=== PATIENT | male | born 1940 | race African-American/Black ===

== ENCOUNTER 2017-08-12 03:15 | Inpatient (IN) | payer OTHER ==
[2017-08-12] MEDS ORDERED: ACETAMINOPHEN INJECTION 100 ML IVPB ONE (03:30)
[2017-08-12 03:34] VITALS: BMI 19.0
[2017-08-12 03:46] LABS: VENOUS PC02 40.4 mmHg (38-52); VENOUS PH 7.42 (7.32-7.42); VENOUS PO2 43.4 mmHg (28-48)
[2017-08-12 03:48] LABS: BASO % 0.3 % (0-2.0); HEMATOCRIT 26.2 % (35.4-49); LYMPH % 21.2 % (8-40); MCH 25.7 pg (25.7-33.7); MCHC 30.5 g/dl (32.0-35.9); MEAN CELL VOLUME 84.1 fl (80-96); MEAN PLT VOLUME 9.6 fl (7.5-11.1); MONO % 8.1 % (3.8-10.2); NEUT % 70.4 % (42.8-82.8); PLATELET COUNT 321 K/MM3 (134-434); RBC 3.11 M/mm3 (4.00-5.60); RDW 19.1 % (11.9-15.9); WHITE BLOOD COUNT 12.4 K/mm3 (4.0-10.0)
[2017-08-12] MEDS ORDERED: SODIUM CHLORIDE 1,000 ML IV STA ×3 (03:51→05:52)
[2017-08-12] MEDS ORDERED: ACETAMINOPHEN 1000 MG/100 ML VIAL (NON FORMULARY) IVPB ONE (03:52)
[2017-08-12 03:53] LABS: URINE APPEARANCE SLCLOUDY; URINE BILIRUBIN NEGATIVE (NEGATIVE); URINE BLOOD NEGATIVE (NEGATIVE); URINE GLUCOSE (UA) NEGATIVE (NEGATIVE); URINE KETONE NEGATIVE (NEGATIVE); URINE LEUK ESTERASE NEGATIVE (NEGATIVE); URINE NITRITE NEGATIVE (NEGATIVE); URINE PROTEIN NEGATIVE (NEGATIVE); URINE UROBILINOGEN 4.0 E.U/dl mg/dL (0.2-1.0)
--- NOTE | 2017-08-12 03:54 | PDOC ---
History of Present Illness - General History Source: Half-Way Records Exam Limitations: Clinical Condition - History of Present Illness Initial Comments: 08/12/17 03:56 The patient is a 77 year old male, with a significant past medical history of htn, afib, diabetes, idiopathic orofacial dystonia, CAD, seizure disorder, influenza, constipation, bipolar disorder, BPH with UTI, who presents to the emergency department via ems from [facility] for evaluation of fever and respiratory distress this morning as per [facility] reports. The patient is unable to give a history. Allergies: lithium <Pamela Fuller - Last Filed: 08/12/17 03:56> - General History Source: Patient <EarlMemo blackwell - Last Filed: 08/12/17 19:40> - General Chief Complaint: SIRS, Suspected/Possible Stated Complaint: FEVER Time Seen by Provider: 08/12/17 03:43 Past History <Pamela Fuller - Last Filed: 08/12/17 03:56> - Suicide/Smoking/Psychosocial Hx Smoking History: Unknown if ever smoked <Memo Gooden - Last Filed: 08/12/17 19:40> - Past Medical History Allergies/Adverse Reactions: Allergies Allergy/AdvReac Type Severity Reaction Status Date / Time lithium Allergy Verified 08/12/17 03:34 Home Medications: Ambulatory Orders Acetaminophen [Tylenol] 650 mg GT ONCE 08/12/17 Albuterol 0.083% Nebulizer Bela [Ventolin 0.083% Nebulizer Soln -] 1 amp NEB TID PRN 08/12/17 Aspirin 81 mg GT DAILY 08/12/17 Carvedilol 6.25 mg GT BID 08/12/17 Doxazosin Mesylate [Cardura] 1 mg GT DAILY 08/12/17 Fosinopril Sodium 10 mg GT DAILY 08/12/17 Ipratropium [place] 0.2 mg IH QID 08/12/17 L. Acidophilus/Pectin, [place] [Acidophilus Capsule] 1 each GT DAILY 08/12/17 Magnesium Hydroxide [Milk of Magnesia] 30 ml GT PRN 08/12/17 Metformin HCl 500 mg GT DAILY 08/12/17 Rivaroxaban [Xarelto -] 15 mg GT DAILY 08/12/17 Sennosides [Senna] 2 tab GT HS 08/12/17 Valproate Sodium Liquid [Depakene] 250 mg GT BID 08/12/17 Review of Systems - Review of Systems Able to Perform ROS?: No (clinical condition) <Pamela Fuller - Last Filed: 08/12/17 03:56> *Physical Exam - Vital Signs Last Vital Signs Temp Pulse Resp BP Pulse Ox 103.6 F H 141 H 48 H 79/54 95 08/12/17 03:16 08/12/17 03:16 08/12/17 03:16 08/12/17 03:16 08/12/17 03:16 - Physical Exam Comments: 08/12/17 03:57 GENERAL: (+) somnolent but arousable. In mild distress. HEENT: Normocephalic, atraumatic. PERRLA, EOMI. No conjunctival pallor. Sclera are non- icteric. Moist mucous membranes. Oropharynx is clear. NECK: Supple. Full ROM. No JVD. Carotid pulses 2+ and symmetric, without bruits. No thyromegaly. No lymphadenopathy. CARDIOVASCULAR: (+) tachycardic. Regular rhythm. No murmurs, rubs, or gallops. Distal pulses are 2+ and symmetric. PULMONARY: (+) bilateral rhonchi, retracting, tachypneic. No wheezing, rales ABDOMINAL: Soft. Non-tender. Non-distended. No rebound or guarding. No organomegaly. Normoactive bowel sounds. MUSCULOSKELETAL No bony deformities or tenderness. No CVA tenderness. EXTREMITIES: (+) extremities are contracted. No cyanosis. No clubbing. No edema. No calf tenderness. SKIN: (+) 8x8cm stage 4 decubitus ulcer to coccyx. Warm and dry. Normal capillary refill. No jaundice. NEUROLOGICAL: (+) aphasic. Somnolent but arousable. Toes are down-going bilaterally. <Pamela Fuller - Last Filed: 08/12/17 03:56> - Vital Signs Last Vital Signs Temp Pulse Resp BP Pulse Ox 103.6 F H 141 H 48 H 79/54 95 08/12/17 03:16 08/12/17 03:16 08/12/17 03:16 08/12/17 03:16 08/12/17 03:16 <Memo Gooden - Last Filed: 08/12/17 19:40> Heart Score/ECG Review - ECG Intrepretation Comment:: 08/12/17 03:[address] Gooden at 3:30 Impression: Sinus tachycardia, left axis deviation Vent. Rate 136 bpm DC Interval: 144 ms QTc: 445 ms <Pamela Fuller - Last Filed: 08/12/17 03:56> ED Treatment Course - LABORATORY CBC & Chemistry Diagram: 08/12/17 03:43 08/12/17 03:43 - ADDITIONAL ORDERS Additional order review: Laboratory Results 08/12/17 03:43 VBG pH 7.42 POC VBG pCO2 40.4 POC VBG pO2 43.4 Mixed VBG HCO3 25.6 H 08/12/17 03:43 RBC 3.11 L MCV 84.1 MCHC 30.5 L RDW 19.1 H MPV 9.6 Neutrophils % 70.4 Lymphocytes % 21.2 Monocytes % 8.1 Eosinophils % 0.0 Basophils % 0.3 - Medications Given in the ED: ED Medications Discontinued Medications Generic Name Dose Route Start Last Admin Trade Name Paul PRN Reason Stop Dose Admin Acetaminophen 1,000 mg 08/12/17 03:52 08/12/17 03:35 Ofirmev Injection - IVPB 08/12/17 03:53 1,000 mg NOW ONE Administration <Pamela Fuller - Last Filed: 08/12/17 03:56> - LABORATORY CBC & Chemistry Diagram: 08/12/17 10:43 08/12/17 14:05 - ADDITIONAL ORDERS Additional order review: Laboratory Results 08/12/17 03:43 VBG pH 7.42 POC VBG pCO2 40.4 POC VBG pO2 43.4 Mixed VBG HCO3 25.6 H 08/12/17 03:43 RBC 3.11 L MCV 84.1 MCHC 30.5 L RDW 19.1 H MPV 9.6 Neutrophils % 70.4 Lymphocytes % 21.2 Monocytes % 8.1 Eosinophils % 0.0 Basophils % 0.3 - RADIOLOGY Radiology Studies Ordered: Category Date Time Status CHEST X-RAY PORTABLE* [RAD] Stat Radiology 08/12/17 03:35 Ordered <Memo Gooden - Last Filed: 08/12/17 19:40> Medical Decision Making - Medical Decision Making 08/12/17 19:40 Dr. Gooden: The scribe's documentation has been prepared under my direction and personally reviewed by me in its entirery. I confirm that the note above accurately reflects all work, treatment, procedures, and medical decision making performed by me. <Memo Gooden - Last Filed: 08/12/17 19:40> *DC/Admit/Observation/Transfer - Attestations Scribe Attestion: 08/12/17 04:00 Documentation prepared by Pamela Fuller, acting as emergency medical service manager for Memo Gooden DO <Pamela Fuller - Last Filed: 08/12/17 03:56> - Discharge Dispostion Admit: Yes <Memo Gooden - Last Filed: 08/12/17 19:40> Diagnosis at time of Disposition: Sepsis, Severe sepsis, Fever - Discharge Dispostion Condition at time of disposition: Stable
[2017-08-12 03:59] LABS: INR 1.89 (0.82-1.09); PROTHROMBIN TIME (PATIENT) 21.4 SEC (9.98-11.88)
[2017-08-12 03:59] LABS: URINE COLOR YELLOW
[2017-08-12 04:09] LABS: ALBUMIN 1.5 g/dl (3.4-5.0); ANION GAP 12 (8-16); BLOOD UREA NITROGEN 78 mg/dL (7-18); CALCIUM 8.5 mg/dL (8.5-10.1); CHLORIDE 113 mmol/L (98-107); CO2 26 mmol/L (21-32); CREATININE 1.2 mg/dL (0.7-1.3); GLUCOSE,RANDOM 104 mg/dL (74-106); SGPT/ALT 44 U/L (12-78); SODIUM 151 mmol/L (136-145)
[2017-08-12 04:12] LABS: ALK PHOS 73 U/L (45-117); BILIRUBIN,TOTAL 0.4 mg/dL (0.2-1.0); SGOT/AST 81 U/L (15-37)
[2017-08-12] MEDS ORDERED: AZITHROMYCIN IVPB 500 MG in DEXTROSE 5%-WATER - 250 ML IVPB ONE (04:45)
[2017-08-12] MEDS ORDERED: cefTRIAXone 1 GM/50 ML BAG (PRE-DOCKED) IVPB ONE (05:00)
[2017-08-12] MEDS ORDERED: CEFTRIAXONE 1 GM/50 ML BAG ONE (05:04)
[2017-08-12] MEDS ORDERED: AZITHROMYCIN IVPB 250 ML IVPB ONE (05:04)
--- NOTE | 2017-08-12 05:55 | HP ---
CHIEF COMPLAINT: fever, ox sat 80% at [place] PCP: Bill Goldstein ([facility]) HISTORY OF PRESENT ILLNESS: This is a 77 year old male with PMH as below who presented from residential for fever and hypoxia. Pt is nonverbal and history is obtained from [place] records. ER course was notable for: (1) WBC 12.4, Lactic acid 5.0 (2) given ceftriaxone and azithromycin Recent Travel: none PAST MEDICAL HISTORY: DVT, HTN, CAD, DM2, BPH, UTI, Schizophrenia, bioplar disorder, conversion disorder with seizures, Influenza PAST SURGICAL HISTORY: unkown Social History: unk, pt nonverbal Smoking: Alcohol: Drugs: Family History: unk, pt nonverbal Allergies lithium Allergy (Verified 08/12/17 03:34) HOME MEDICATIONS: 3 Medication Instructions Recorded Acetaminophen [Tylenol] 650 mg GT ONCE 08/12/17 Albuterol 0.083% Nebulizer Bela 1 amp NEB TID PRN 08/12/17 [Ventolin 0.083% Nebulizer Soln -] Aspirin 81 mg GT DAILY 08/12/17 Carvedilol 6.25 mg GT BID 08/12/17 Doxazosin Mesylate [Cardura] 1 mg GT DAILY 08/12/17 Fosinopril Sodium 10 mg GT DAILY 08/12/17 Ipratropium [place] 0.2 mg IH QID 08/12/17 L. Acidophilus/Pectin, [place] 1 each GT DAILY 08/12/17 [Acidophilus Capsule] Magnesium Hydroxide [Milk of 30 ml GT PRN 08/12/17 Magnesia] Metformin HCl 500 mg GT DAILY 08/12/17 Rivaroxaban [Xarelto -] 15 mg GT DAILY 08/12/17 Sennosides [Senna] 2 tab GT HS 08/12/17 Valproate Sodium Liquid [Depakene] 250 mg GT BID 08/12/17 REVIEW OF SYSTEMS CONSTITUTIONAL: Present: fever Absent: chills, diaphoresis, generalized weakness, malaise, loss of appetite, weight change HEENT: Absent: rhinorrhea, nasal congestion, throat pain, throat swelling, difficulty swallowing, mouth swelling, ear pain, eye pain, visual changes CARDIOVASCULAR: Absent: chest pain, syncope, palpitations, irregular heart rate, lightheadedness , peripheral edema RESPIRATORY: Present: shortness of breath, Hypoxia Absent: cough, dyspnea with exertion, orthopnea, wheezing, stridor, hemoptysis GASTROINTESTINAL: Absent: abdominal pain, abdominal distension, nausea, vomiting, diarrhea, constipation, melena, hematochezia GENITOURINARY: Absent: dysuria, frequency, urgency, hesitancy, hematuria, flank pain, genital pain MUSCULOSKELETAL: Absent: myalgia, arthralgia, joint swelling, back pain, neck pain SKIN: Absent: rash, itching, pallor HEMATOLOGIC/IMMUNOLOGIC: Absent: easy bleeding, easy bruising, lymphadenopathy, frequent infections ENDOCRINE: Absent: unexplained weight gain, unexplained weight loss, heat intolerance, cold intolerance NEUROLOGIC: Absent: headache, focal weakness or paresthesias, dizziness, unsteady gait, seizure, mental status changes, bladder or bowel incontinence PSYCHIATRIC: Absent: anxiety, depression, suicidal or homicidal ideation, hallucinations. PHYSICAL EXAMINATION Vital Signs - 24 hr 3 08/12/17 08/12/17 08/12/17 03:16 05:10 05:54 Temperature 103.6 F H 100.2 F H Pulse Rate 141 H Pulse Rate [ 120 H Apical] Respiratory 48 H Rate Blood Pressure 79/54 Blood Pressure 74/49 [Right Arm] O2 Sat by Pulse 95 Oximetry (%) GENERAL: Awake, arousable, in mild distress. HEAD: Normal with no signs of trauma. EYES: Pupils equal, round and reactive to light, sclera anicteric, conjunctiva clear. No lid lag. EARS, NOSE, THROAT: Ears normal, nares patent, oropharynx clear without exudates. Moist mucous membranes. NECK: Normal range of motion, supple without lymphadenopathy, JVD, or masses. LUNGS: + rhonchi B/L, Upper airway noise due to oral secretions. No accessory muscle use. HEART: Regular rate and rhythm, normal S1 and S2 without murmur, rub or gallop. ABDOMEN: Soft, nontender, not distended, normoactive bowel sounds, no guarding, no rebound, no masses. No hepatomegaly or splenomegaly. MUSCULOSKELETAL: Normal range of motion at all joints. No bony deformities or tenderness. No CVA tenderness. UPPER EXTREMITIES: 2+ pulses, warm, well-perfused. No cyanosis. No clubbing. No peripheral edema. LOWER EXTREMITIES: 2+ pulses, warm, well-perfused. No calf tenderness. No peripheral edema. NEUROLOGICAL: Cranial nerves II-XII intact. Normal speech. Normal gait. PSYCHIATRIC: Cooperative. Good eye contact. Appropriate mood and affect. SKIN: Warm, dry, Poor turgor, no rashes or lesions noted, normal capillary refill. decubitus ulcer to sacrum, 7.0cm x 8.0cm x 1.3cm, 100% eschar, tunneling under eschar noted. Laboratory Results - last 24 hr 3 08/12/17 08/12/17 08/12/17 03:43 03:43 03:43 WBC 12.4 H RBC 3.11 L Hgb 8.0 L Hct 26.2 L MCV 84.1 MCH 25.7 MCHC 30.5 L RDW 19.1 H Plt Count 321 MPV 9.6 Neutrophils % 70.4 Lymphocytes % 21.2 Monocytes % 8.1 Eosinophils % 0.0 Basophils % 0.3 PT with INR 21.40 H INR 1.89 H VBG pH 7.42 POC VBG pCO2 40.4 POC VBG pO2 43.4 Mixed VBG HCO3 25.6 H Sodium Potassium Chloride Carbon Dioxide Anion Gap BUN Creatinine Creat Clearance w eGFR Random Glucose Lactic Acid Calcium Total Bilirubin AST ALT Alkaline Phosphatase Total Protein Albumin Urine Color Urine Appearance Urine pH Ur Specific [place] Urine Protein Urine Glucose (UA) Urine Ketones Urine Blood Urine Nitrite Urine Bilirubin Urine Urobilinogen Ur Leukocyte Esterase Stool Occult Blood 3 08/12/17 08/12/17 08/12/17 08/12/17 08/12/17 03:43 03:43 03:44 04:15 04:45 WBC RBC Hgb Hct MCV MCH MCHC RDW Plt Count MPV Neutrophils % Lymphocytes % Monocytes % Eosinophils % Basophils % PT with INR INR VBG pH POC VBG pCO2 POC VBG pO2 Mixed VBG HCO3 Sodium 151 H Potassium 5.0 Chloride 113 H Carbon Dioxide 26 Anion Gap 12 BUN 78 H Creatinine 1.2 Creat Clearance w eGFR 58.71 Random Glucose 104 Lactic Acid 5.0 H* 3.8 H* Calcium 8.5 Total Bilirubin 0.4 AST 81 H ALT 44 Alkaline Phosphatase 73 Total Protein 7.0 Albumin 1.5 L Urine Color Yellow Urine Appearance Slcloudy Urine pH 5.0 Ur Specific [place] 1.019 Urine Protein Negative Urine Glucose (UA) Negative Urine Ketones Negative Urine Blood Negative Urine Nitrite Negative Urine Bilirubin Negative Urine Urobilinogen 4.0 e.u/dl Ur Leukocyte Esterase Negative Stool Occult Blood Negative ECG Sinus tachycardia vent rate 136, QTC 445 left axis deviation Radiology Reports CXR, report pending, there appears to be a RLL infiltrate ASSESSMENT/PLAN: 77yM with PMH DVT, HTN, CAD, DM2, BPH, UTI, Schizophrenia, bioplar disorder, conversion disorder with seizures, Influenza presented to the ED with report of fever, AMS, and hypoxia at [place]. Severe sepsis due to PNA - as evidenced by tachycardia, fever, elevated WBC and lactic acid of 5.0 - Given 2L NS, BP remains in 80s, will give additional liter, if remains hypotensive may need to be upgraded to ICU/started on pressors - Given ceftriaxone and azithromycin, will add vancomycin as pt is from residential - rec ID consut, defer to primary team - albuterol PRN for wheezing - O2 via NC to keep sat >90 - hold tube feed for now Unstageable sacral ulcer - will need surgical debridement, defer consult to primary team - collagenase for now - koehler for wound healing Hypernatremia - likely due to hypovolemia - repeat now anemia - Hgb 8.0, unknown baseline, pt has never been here before - stool neg for occult blodd - type and screen ordered with am labs HTN/CAD - hold coreg, fosinopril until BP stable - cont asa 81 DM2 - hold home metformin - BGM q6h with novolog sliding scale BPH w/ h/o UTI - hold cardura until BP stable, then restart - u/a not indicative of UTI, follow culture schizophrenia/bipolar - cont home depakene via GT h/o DVT - cont xarelto FEN - NS @ 125cc/hr after 3rd L bolus - BMP now - hold GT feed for now, start tonight if more medically stable Dispo: Pt currently requires inpatient management of his emergent condition. Visit type - Emergency Visit Emergency Visit: Yes Care time: The patient presented to the Emergency Department on the above date and was hospitalized for further evaluation of their emergent condition. - New Patient This patient is new to me today: Yes Date on this admission: 08/12/17 - Critical Care Critical Care patient: No
[2017-08-12] MEDS ORDERED: ALBUTEROL SO4 0.083% IH SOL 2.5 MG/3 ML VIAL.NEB. NEB PRN ×2 (06:00→23:43)
[2017-08-12] MEDS ORDERED: VANCOMYCIN 1 GRAM (PRE-DOCKED) 1,000 MG/250 ML BAG IVPB ONE ×2 (06:12→06:21)
[2017-08-12 06:45] LABS: BASO % 0.1 % (0-2.0); LYMPH % 21.3 % (8-40); MCH 26.1 pg (25.7-33.7); MCHC 27.7 g/dl (32.0-35.9); MEAN CELL VOLUME 94.3 fl (80-96); MEAN PLT VOLUME 10.2 fl (7.5-11.1); MONO % 8.3 % (3.8-10.2); NEUT % 70.3 % (42.8-82.8); PLATELET COUNT 205 K/MM3 (134-434); RBC 2.44 M/mm3 (4.00-5.60); RDW 20.2 % (11.9-15.9); WHITE BLOOD COUNT 8.5 K/mm3 (4.0-10.0)
[2017-08-12 06:47] LABS: HEMOGLOBIN 6.4 GM/dL (11.7-16.9)
[2017-08-12] MEDS ORDERED: SODIUM CHLORIDE 1,000 ML IV SCH ×2 (06:52→10:15)
[2017-08-12 07:59] LABS: ANION GAP 10 (8-16); BLOOD UREA NITROGEN 71 mg/dL (7-18); CALCIUM 7.5 mg/dL (8.5-10.1); CHLORIDE 115 mmol/L (98-107); CO2 26 mmol/L (21-32); GLUCOSE,RANDOM 148 mg/dL (74-106); SODIUM 151 mmol/L (136-145)
[2017-08-12] MEDS ORDERED: SODIUM CHLORIDE 250 ML IV STA (08:04)
[2017-08-12] MEDS ORDERED: SODIUM CHLORIDE 0.45% 1,000 ML IV SCH (08:15)
[2017-08-12] MEDS ORDERED: ALBUTEROL SO4 2.5/IPRATROPIUM 0.5 INH SOL 3 ML VIAL.NEB. NEB ONE (09:16)
[2017-08-12] MEDS ORDERED: RIVAROXABAN 15 MG TABLET GT SCH (10:00)
[2017-08-12] MEDS ORDERED: HEPARIN NA (PORCINE) 5,000 UNITS/ML 1ML VIAL SQ SCH (10:00)
[2017-08-12] MEDS ORDERED: LACTOBACILLUS ACIDOPHILUS 1 EACH TAB (FP) GT SCH (10:00)
[2017-08-12] MEDS ORDERED: ASPIRIN 81 MG CHEWABLE TABLETS GT SCH (10:00)
--- NOTE | 2017-08-12 10:03 | PN ---
Progress Note, Physician History of Present Illness: IN ER HYPOTENSIVE AND TACHYCARDIC - Current Medication List Current Medications: Active Medications Albuterol Sulfate (Ventolin 0.083% Nebulizer Soln -) 1 amp NEB Q4H PRN PRN Reason: SHORT OF BREATH/WHEEZING Albuterol/Ipratropium (Duoneb -) 1 amp NEB RQID SOHAIL Chlorhexidine Gluconate (Hibiclens For Decolonization -) 1 applic TP HS SOHAIL Collagenase (Santyl -) 1 applic TP BID SOHAIL Sodium Chloride (1/2 Normal Saline) 1,000 mls @ 100 mls/hr IV ASDIR SOHAIL Last Admin: 08/12/17 09:04 Dose: 100 mls/hr Sodium Chloride (Normal Saline -) 1,000 mls @ 125 mls/hr IV ASDIR SOHAIL Insulin Aspart (Novolog Vial Sliding Scale -) 1 vial SQ Q6HPO SOHAIL PRN Reason: Protocol Lactobacillus Acidophilus (Bacid -) 1 tab GT DAILY SOHAIL Methylprednisolone Sodium Succinate (Solu-Medrol -) 40 mg IVPUSH Q6H-IV SOHAIL Mupirocin (Bactroban Ointment (For Decolonization) -) 1 applic NS BID SOHAIL Stop: 08/17/17 09:59 Valproate Sodium (Depakene -) 250 mg GT BID SOHAIL - Objective Vital Signs: Vital Signs Temperature 100.2 F H 08/12/17 05:10 Pulse Rate 117 H 08/12/17 06:44 Respiratory Rate 22 08/12/17 06:44 Blood Pressure 72/54 08/12/17 06:44 O2 Sat by Pulse Oximetry (%) 95 08/12/17 06:44 Cardiovascular: Yes: Tachycardia, S1, S2 Respiratory: Yes: Rales, Rhonchi, Wheezes Gastrointestinal: Yes: Normal Bowel Sounds, Soft Extremities: Yes: Other (CONTRACTURE) Edema: No Labs: CBC, BMP 08/12/17 06:08 08/12/17 07:19 INR, PTT INR 1.89 (0.82-1.09) H 08/12/17 03:43 Problem List - Problems (1) Severe sepsis Assessment/Plan: - as evidenced by tachycardia, fever, elevated WBC and lactic acid of 5.0 - Given 2L NS, BP remains in 80s, given additional liter, remains hypotensive upgraded to ICU/started on pressors - Given ceftriaxone and azithromycin, will add vancomycin as pt is from [facility] - ID consut - albuterol PRN for wheezing - O2 via NC to keep sat >90 - hold tube feed for now Code(s): A41.9 - SEPSIS, UNSPECIFIED ORGANISM; R65.20 - SEVERE SEPSIS WITHOUT SEPTIC SHOCK (2) COPD (chronic obstructive pulmonary disease) Assessment/Plan: nebs steroids Code(s): J44.9 - CHRONIC OBSTRUCTIVE PULMONARY DISEASE, UNSPECIFIED (3) Pneumonia Assessment/Plan: -abx -id consult Code(s): J18.9 - PNEUMONIA, UNSPECIFIED ORGANISM (4) Anemia Assessment/Plan: transfuse monitor cbc Code(s): D64.9 - ANEMIA, UNSPECIFIED (5) Hypernatremia Assessment/Plan: IVF MONITOR Code(s): E87.0 - HYPEROSMOLALITY AND HYPERNATREMIA
--- NOTE | 2017-08-12 10:46 | EKG ---
Test Reason : Blood Pressure : / mmHG Vent. Rate : 136 BPM Atrial Rate : 136 BPM P-R Int : 144 ms QRS Dur : 090 ms QT Int : 296 ms P-R-T Axes : 034 -48 036 degrees QTc Int : 445 ms SINUS TACHYCARDIA LEFT AXIS DEVIATION ABNORMAL ECG NO PREVIOUS ECGS AVAILABLE Confirmed by WILIAM GODOY, LESLIE ([id number]) on 08/12/2017 10:46:14 AM Referred By: Confirmed By:LESLIE SWAIN MD
[2017-08-12 11:17] LABS: HEMATOCRIT 23.8 % (35.4-49); HEMOGLOBIN 7.2 GM/dL (11.7-16.9); MCH 25.7 pg (25.7-33.7); MCHC 30.1 g/dl (32.0-35.9); MEAN CELL VOLUME 85.4 fl (80-96); MEAN PLT VOLUME 9.4 fl (7.5-11.1); PLATELET COUNT 255 K/MM3 (134-434); RBC 2.79 M/mm3 (4.00-5.60); RDW 18.5 % (11.9-15.9); WHITE BLOOD COUNT 9.9 K/mm3 (4.0-10.0)
[2017-08-12] MEDS: methylPREDNISolone NA SUCC 40 MG/1 ML VIAL IVPUSH SCH ×3 (11:31→21:43)
[2017-08-12] MEDS: VALPROATE SODIUM 250 MG/5 ML UNIT DOSE CUP GT SCH ×2 (11:32→21:44)
[2017-08-12] MEDS: COLLAGENASE CLOSTRIDIUM HIST. 30 GRAMS TUBE TP SCH (11:32)
[2017-08-12] MEDS: MUPIROCIN 2% TOPICAL OINTMENT FOR DECOLONIZATION NS SCH ×2 (11:32→21:45)
[2017-08-12] MEDS: INSULIN SLIDING SCALE (NOVOLOG) 1 VIAL SQ SCH ×3 (11:57→19:53)
--- NOTE | 2017-08-12 12:52 | CONSULT ---
Consult Consult Specialty:: Nephrology Reason for Consultation:: NEAL and hyperkalemia - History of Present Illness Chief Complaint: sent in from [place] for fever and respiratory distress History of Present Illness: Pt is a 77 year old male with pmhx of HTN, DM, a-fib, CAD, epilepsy, BPH and bipolar who was sent in from the [place] for fever and respiratory distress. He was found to have a PNA on cxr. He is unable to give history. I was called to evaluate him for NEAL and hypernatremia. He has a peg tube and gets peg feeding. Chart was reviewed for history. - History Source History Provided By: Medical Record Limitations to Obtaining History: Clinical Condition - Past Medical History [employer]: Yes: Dementia, Seizure Cardio/Vascular: Yes: HTN Gastrointestinal: Yes: Other (peg) Endocrine: Yes: Diabetes Mellitus - Past Surgical History Additional Surgical History: peg - Smoking History Smoking history: Unknown if ever smoked Home Medications - Allergies Allergies/Adverse Reactions: Allergies Allergy/AdvReac Type Severity Reaction Status Date / Time lithium Allergy Verified 08/12/17 03:34 - Home Medications Home Medications: Ambulatory Orders Acetaminophen [Tylenol] 650 mg GT ONCE 08/12/17 Albuterol 0.083% Nebulizer Bela [Ventolin 0.083% Nebulizer Soln -] 1 amp NEB TID PRN 08/12/17 Aspirin 81 mg GT DAILY 08/12/17 Carvedilol 6.25 mg GT BID 08/12/17 Doxazosin Mesylate [Cardura] 1 mg GT DAILY 08/12/17 Fosinopril Sodium 10 mg GT DAILY 08/12/17 Ipratropium [place] 0.2 mg IH QID 08/12/17 L. Acidophilus/Pectin, [place] [Acidophilus Capsule] 1 each GT DAILY 08/12/17 Magnesium Hydroxide [Milk of Magnesia] 30 ml GT PRN 08/12/17 Metformin HCl 500 mg GT DAILY 08/12/17 Rivaroxaban [Xarelto -] 15 mg GT DAILY 08/12/17 Sennosides [Senna] 2 tab GT HS 08/12/17 Valproate Sodium Liquid [Depakene] 250 mg GT BID 08/12/17 Family Disease History - Family Disease History Family History: Unable to Obtain Review of Systems Unable to obtain ROS, reason: pt not answering Physical Exam Vital Signs: Vital Signs Temperature 97.8 F 08/12/17 11:54 Pulse Rate 118 H 08/12/17 11:54 Respiratory Rate 26 H 08/12/17 11:54 Blood Pressure 91/61 08/12/17 11:54 O2 Sat by Pulse Oximetry (%) 91 L 08/12/17 11:54 Constitutional: Yes: Mild Distress, Poor Hygeine Eyes: Yes: Conjunctiva Clear Cardiovascular: Yes: S1, S2 Respiratory: Yes: On Venti-Mask, Rhonchi Gastrointestinal: Yes: Soft Renal/: Yes: Incontinence Musculoskeletal: Yes: Muscle Weakness Edema: No Neurological: Yes: Pre-Existing Deficit Psychiatric: Yes: Agitated Labs: CBC, BMP 08/12/17 10:43 08/12/17 07:19 Laboratory Tests 08/12/17 08/12/17 08/12/17 03:43 03:43 03:43 WBC 12.4 H Hgb 8.0 L VBG pH 7.42 POC VBG pCO2 40.4 POC VBG pO2 43.4 Sodium 151 H Potassium 5.0 Chloride Carbon Dioxide Anion Gap BUN Creatinine 1.2 Lactic Acid Albumin 1.5 L 08/12/17 08/12/17 08/12/17 03:43 04:45 06:08 WBC Hgb 6.4 L* D VBG pH POC VBG pCO2 POC VBG pO2 Sodium Potassium Chloride Carbon Dioxide Anion Gap BUN Creatinine Lactic Acid 5.0 H* 3.8 H* Albumin 08/12/17 08/12/17 08/12/17 07:19 10:43 11:05 WBC Hgb 7.2 L D VBG pH POC VBG pCO2 POC VBG pO2 Sodium 151 H Potassium 4.0 Chloride 115 H Carbon Dioxide 26 Anion Gap 10 BUN 71 H Creatinine 1.0 Lactic Acid 2.3 H* Albumin Imaging - Results Chest X-ray: Report Reviewed Problem List - Problems (1) Anemia Code(s): D64.9 - ANEMIA, UNSPECIFIED (2) COPD (chronic obstructive pulmonary disease) Code(s): J44.9 - CHRONIC OBSTRUCTIVE PULMONARY DISEASE, UNSPECIFIED (3) Fever Code(s): R50.9 - FEVER, UNSPECIFIED (4) Hypernatremia Code(s): E87.0 - HYPEROSMOLALITY AND HYPERNATREMIA (5) Pneumonia Code(s): J18.9 - PNEUMONIA, UNSPECIFIED ORGANISM (6) Sepsis Code(s): A41.9 - SEPSIS, UNSPECIFIED ORGANISM Assessment/Plan Current Medications Generic Name Dose Route Start Last Admin Trade Name Freq PRN Reason Stop Dose Admin Albuterol Sulfate 1 amp 08/12/17 06:00 08/12/17 11:56 Ventolin 0.083% Nebulizer Soln - NEB 1 amp Q4H PRN Administration SHORT OF BREATH/WHEEZING Albuterol/Ipratropium 1 amp 08/12/17 12:00 Duoneb - NEB RQID SOHAIL Chlorhexidine Gluconate 1 applic 08/12/17 22:00 Hibiclens For Decolonization - TP HS SOHAIL Collagenase 1 applic 08/12/17 10:00 08/12/17 11:32 Santyl - TP Not Given BID SOHAIL Sodium Chloride 1,000 mls @ 125 mls/hr 08/12/17 10:15 08/12/17 11:58 Normal Saline - IV Not Given ASDIR SOHAIL Azithromycin 500 mg/ Dextrose 250 mls @ 250 mls/hr 08/13/17 10:00 IVPB DAILY SOHAIL Vancomycin HCl 1,000 mg/ 250 mls @ 166.667 mls/hr 08/13/17 07:00 Dextrose IVPB DAILY@0700 SOHAIL Piperacillin Sod/Tazobactam 100 mls @ 200 mls/hr 08/12/17 13:15 Sod 4.5 gm/ Dextrose IVPB Q8H-IV SOHAIL Insulin Aspart 1 vial 08/12/17 06:45 08/12/17 11:57 Novolog Vial Sliding Scale - SQ Not Given Q6HPO [facility] Protocol Lactobacillus Acidophilus 1 tab 08/12/17 10:00 08/12/17 11:57 Bacid - GT 1 tab DAILY SOHAIL Administration Methylprednisolone Sodium Succinate 40 mg 08/12/17 10:30 08/12/17 11:31 Solu-Medrol - IVPUSH 40 mg Q6H-IV SOHAIL Administration Mupirocin 1 applic 08/12/17 10:00 08/12/17 11:32 Bactroban Ointment (For Decolonization) - NS 08/17/17 09:59 Not Given BID SOHAIL Valproate Sodium 250 mg 08/12/17 10:00 08/12/17 11:32 Depakene - GT 250 mg BID SOHAIL Administration Impression 1. NEAL 2. hypernatremia 3. PNA 4. dysphagia 5. DM 6. HTN 7. hypoxia Plan - check ua and lytes - check bladder ultrasound - pt has a free water deficit of about 2.49 liters - add free water to peg - change fluids to a hypotonic solution - monitor bp - start abx - start nebs - repeat labs in am - will follow Dr Dorsey
[2017-08-12] MEDS ORDERED: PIPERACILLIN/TAZOB 4.5 GM/100 ML PRE-DOCKED IVPB SCH (13:00)
--- NOTE | 2017-08-12 13:06 | PN ---
Progress Note (short form) - Note Progress Note: ID consult dictated imp/reccd pneumonia concern for impending respiratory failure sepsis hypotension anemia vancomycin/zosyn/zithromax cultures legionella urinary antigen ICU consult - abg ordered
--- NOTE | 2017-08-12 13:49 | CON.GI ---
Consult Consult Specialty:: GI - History of Present Illness History of Present Illness: The patient is a 77 year old male, with a significant past medical history of htn, afib, diabetes, idiopathic orofacial dystonia, CAD, seizure disorder, influenza, constipation, bipolar disorder, BPH with UTI, who presents to the emergency department via ems from [facility] for evaluation of fever and respiratory distress this morning as per fdc reports. He was found to have microcytic, normochromic anemia and hemocult negative stools while in ED. No reports, or whitenesses stigmata of acute, or chronic GI bleeding at [place]. White in ED, Hgb decreased from 8 g/dl to 6, repeat 7.2, w/o any obvious external signs of bleeding. Other cell lines have decreased as well. At the time of this encounter, the patient is awake, non-communicative on nonrebreather mask saturating 92%. In mild respiratory distress. 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 Cardio/Vascular: Yes: HTN Gastrointestinal: Yes: Other (peg) Endocrine: Yes: Diabetes Mellitus - Past Surgical History Additional Surgical History: peg - Smoking History Smoking history: Unknown if ever smoked Home Medications - Allergies Allergies/Adverse Reactions: Allergies Allergy/AdvReac Type Severity Reaction Status Date / Time lithium Allergy Verified 08/12/17 03:34 - Home Medications Home Medications: Ambulatory Orders Acetaminophen [Tylenol] 650 mg GT ONCE 08/12/17 Albuterol 0.083% Nebulizer Bela [Ventolin 0.083% Nebulizer Soln -] 1 amp NEB TID PRN 08/12/17 Aspirin 81 mg GT DAILY 08/12/17 Carvedilol 6.25 mg GT BID 08/12/17 Doxazosin Mesylate [Cardura] 1 mg GT DAILY 08/12/17 Fosinopril Sodium 10 mg GT DAILY 08/12/17 Ipratropium [place] 0.2 mg IH QID 08/12/17 L. Acidophilus/Pectin, [place] [Acidophilus Capsule] 1 each GT DAILY 08/12/17 Magnesium Hydroxide [Milk of Magnesia] 30 ml GT PRN 08/12/17 Metformin HCl 500 mg GT DAILY 08/12/17 Rivaroxaban [Xarelto -] 15 mg GT DAILY 08/12/17 Sennosides [Senna] 2 tab GT HS 08/12/17 Valproate Sodium Liquid [Depakene] 250 mg GT BID 08/12/17 Family Disease History - Family Disease History Family History: Unremarkable (non-contributory) Review of Systems Findings/Remarks: Please refer to H&P and history of present illness Physical Exam-GI Vital Signs: Vital Signs Temperature 97.8 F 08/12/17 11:54 Pulse Rate 118 H 08/12/17 11:54 Respiratory Rate 26 H 08/12/17 11:54 Blood Pressure 91/61 08/12/17 11:54 O2 Sat by Pulse Oximetry (%) 91 L 08/12/17 11:54 Constitutional: Yes: Mild Distress, Thin Eyes: No: Sclera Icterus HENT: Yes: Normocephalic, Drooling Neck: Yes: Supple Respiratory: Yes: On Venti-Mask, Rhonchi, SOB Gastrointestinal Inspection: No: Ascites, Distention ...Palpate: Yes: Soft, Other (intact PEG). No: Firm/Rigid, Guarding, Mass, Pulsatile Mass, Tenderness, Rebound ...Rectal Exam: Yes: Other (Hemoccult-negative stool as tested and lab) Neurological: Yes: Alert (to self) Labs: CBC, BMP 08/12/17 10:43 08/12/17 07:19 INR, PTT INR 1.89 (0.82-1.09) H 08/12/17 03:43 Laboratory Tests 08/12/17 08/12/17 08/12/17 03:43 03:43 03:43 WBC 12.4 H RBC 3.11 L Hgb 8.0 L Hct 26.2 L MCV 84.1 MCH 25.7 MCHC 30.5 L RDW 19.1 H Plt Count 321 MPV 9.6 Neutrophils % 70.4 Lymphocytes % 21.2 Monocytes % 8.1 Eosinophils % 0.0 Basophils % 0.3 PT with INR 21.40 H INR 1.89 H VBG pH 7.42 POC VBG pCO2 40.4 POC VBG pO2 43.4 Mixed VBG HCO3 25.6 H Sodium Potassium Chloride Carbon Dioxide Anion Gap BUN Creatinine Creat Clearance w eGFR POC Glucometer Random Glucose Lactic Acid Calcium Phosphorus Magnesium Total Bilirubin AST ALT Alkaline Phosphatase Total Protein Albumin Urine Color Urine Appearance Urine pH Ur Specific [place] Urine Protein Urine Glucose (UA) Urine Ketones Urine Blood Urine Nitrite Urine Bilirubin Urine Urobilinogen Ur Leukocyte Esterase Stool Occult Blood Blood Type Antibody Screen Crossmatch 08/12/17 08/12/17 08/12/17 03:43 03:43 03:44 WBC RBC Hgb Hct MCV MCH MCHC RDW Plt Count MPV Neutrophils % Lymphocytes % Monocytes % Eosinophils % Basophils % PT with INR INR VBG pH POC VBG pCO2 POC VBG pO2 Mixed VBG HCO3 Sodium 151 H Potassium 5.0 Chloride 113 H Carbon Dioxide 26 Anion Gap 12 BUN 78 H Creatinine 1.2 Creat Clearance w eGFR 58.71 POC Glucometer Random Glucose 104 Lactic Acid 5.0 H* Calcium 8.5 Phosphorus Magnesium Total Bilirubin 0.4 AST 81 H ALT 44 Alkaline Phosphatase 73 Total Protein 7.0 Albumin 1.5 L Urine Color Yellow Urine Appearance Slcloudy Urine pH 5.0 Ur Specific [place] 1.019 Urine Protein Negative Urine Glucose (UA) Negative Urine Ketones Negative Urine Blood Negative Urine Nitrite Negative Urine Bilirubin Negative Urine Urobilinogen 4.0 e.u/dl Ur Leukocyte Esterase Negative Stool Occult Blood Blood Type Antibody Screen Crossmatch 08/12/17 08/12/17 08/12/17 04:00 04:15 04:45 WBC RBC Hgb Hct MCV MCH MCHC RDW Plt Count MPV Neutrophils % Lymphocytes % Monocytes % Eosinophils % Basophils % PT with INR INR VBG pH POC VBG pCO2 POC VBG pO2 Mixed VBG HCO3 Sodium Potassium Chloride Carbon Dioxide Anion Gap BUN Creatinine Creat Clearance w eGFR POC Glucometer Random Glucose Lactic Acid 3.8 H* Calcium Phosphorus Magnesium Total Bilirubin AST ALT Alkaline Phosphatase Total Protein Albumin Urine Color Urine Appearance Urine pH Ur Specific [place] Urine Protein Urine Glucose (UA) Urine Ketones Urine Blood Urine Nitrite Urine Bilirubin Urine Urobilinogen Ur Leukocyte Esterase Stool Occult Blood Negative Blood Type B POSITIVE Antibody Screen Crossmatch 08/12/17 08/12/17 08/12/17 06:08 06:08 06:08 WBC 8.5 D RBC 2.44 L D Hgb 6.4 L* D Hct 23.0 L MCV 94.3 D MCH 26.1 MCHC 27.7 L RDW 20.2 H Plt Count 205 D MPV 10.2 Neutrophils % 70.3 Lymphocytes % 21.3 Monocytes % 8.3 Eosinophils % 0.0 Basophils % 0.1 PT with INR INR VBG pH POC VBG pCO2 POC VBG pO2 Mixed VBG HCO3 Sodium Cancelled Potassium Cancelled Chloride Cancelled Carbon Dioxide Cancelled Anion Gap Cancelled BUN Cancelled Creatinine Cancelled Creat Clearance w eGFR POC Glucometer Random Glucose Cancelled Lactic Acid Calcium Cancelled Phosphorus Cancelled Magnesium Cancelled Total Bilirubin AST ALT Alkaline Phosphatase Total Protein Albumin Urine Color Urine Appearance Urine pH Ur Specific [place] Urine Protein Urine Glucose (UA) Urine Ketones Urine Blood Urine Nitrite Urine Bilirubin Urine Urobilinogen Ur Leukocyte Esterase Stool Occult Blood Blood Type B POSITIVE Antibody Screen Negative Crossmatch See Detail 08/12/17 08/12/17 08/12/17 07:19 09:09 10:43 WBC 9.9 RBC 2.79 L Hgb 7.2 L D Hct 23.8 L MCV 85.4 D MCH 25.7 MCHC 30.1 L RDW 18.5 H Plt Count 255 D MPV 9.4 Neutrophils % Lymphocytes % Monocytes % Eosinophils % Basophils % PT with INR INR VBG pH POC VBG pCO2 POC VBG pO2 Mixed VBG HCO3 Sodium 151 H Potassium 4.0 Chloride 115 H Carbon Dioxide 26 Anion Gap 10 BUN 71 H Creatinine 1.0 Creat Clearance w eGFR POC Glucometer [id number] Random Glucose 148 H D Lactic Acid Calcium 7.5 L Phosphorus Magnesium Total Bilirubin AST ALT Alkaline Phosphatase Total Protein Albumin Urine Color Urine Appearance Urine pH Ur Specific [place] Urine Protein Urine Glucose (UA) Urine Ketones Urine Blood Urine Nitrite Urine Bilirubin Urine Urobilinogen Ur Leukocyte Esterase Stool Occult Blood Blood Type Antibody Screen Crossmatch 08/12/17 11:05 WBC RBC Hgb Hct MCV MCH MCHC RDW Plt Count MPV Neutrophils % Lymphocytes % Monocytes % Eosinophils % Basophils % PT with INR INR VBG pH POC VBG pCO2 POC VBG pO2 Mixed VBG HCO3 Sodium Potassium Chloride Carbon Dioxide Anion Gap BUN Creatinine Creat Clearance w eGFR POC Glucometer Random Glucose Lactic Acid 2.3 H* Calcium Phosphorus Magnesium Total Bilirubin AST ALT Alkaline Phosphatase Total Protein Albumin Urine Color Urine Appearance Urine pH Ur Specific [place] Urine Protein Urine Glucose (UA) Urine Ketones Urine Blood Urine Nitrite Urine Bilirubin Urine Urobilinogen Ur Leukocyte Esterase Stool Occult Blood Blood Type Antibody Screen Crossmatch Problem List - Problems (1) Microcytic anemia Code(s): D50.9 - IRON DEFICIENCY ANEMIA, UNSPECIFIED (2) Anemia Code(s): D64.9 - ANEMIA, UNSPECIFIED (3) COPD (chronic obstructive pulmonary disease) Code(s): J44.9 - CHRONIC OBSTRUCTIVE PULMONARY DISEASE, UNSPECIFIED (4) Fever Code(s): R50.9 - FEVER, UNSPECIFIED (5) Pneumonia Code(s): J18.9 - PNEUMONIA, UNSPECIFIED ORGANISM (6) Sepsis Code(s): A41.9 - SEPSIS, UNSPECIFIED ORGANISM (7) Severe sepsis Code(s): A41.9 - SEPSIS, UNSPECIFIED ORGANISM; R65.20 - SEVERE SEPSIS WITHOUT SEPTIC SHOCK Assessment/Plan A 77-year-old, debilitated, with multiple medical issues, fdc resident who is being admitted for severe sepsis and pneumonia and who was noted to have microcytic anemia. No signs to suggest active, or recent gastrointestinal bleed. Suspect anemia to be multifactorial and not appearing to be #1 issue at this moment. We will closely monitor for signs of bleeding and promptly intervene should there be need. COnsider adding Protonix 40 mg IV piggyback daily. Daily CBC. Daily stool exams for melena. Aspiration precautions. PEG care as per protocol.
--- NOTE | 2017-08-12 14:28 | CON.CARD ---
Consult Consult Specialty:: Cardiology Reason for Consultation:: Respiratory distress - History of Present Illness Chief Complaint: Respiratory distress History of Present Illness: This is a The patient is a 77 year old male, with a significant past medical history of htn, afib, diabetes, idiopathic orofacial dystonia, CAD, seizure disorder, influenza, constipation, bipolar disorder, BPH and with UTI. He presents from [facility] for evaluation of fever and respiratory distress this morning as per long term reports. The patient is unable to give a history. 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 Cardio/Vascular: Yes: HTN Gastrointestinal: Yes: Other (peg) Endocrine: Yes: Diabetes Mellitus - Past Surgical History Additional Surgical History: peg - Smoking History Smoking history: Unknown if ever smoked Home Medications - Allergies Allergies/Adverse Reactions: Allergies Allergy/AdvReac Type Severity Reaction Status Date / Time lithium Allergy Verified 08/12/17 03:34 - Home Medications Home Medications: Ambulatory Orders Acetaminophen [Tylenol] 650 mg GT ONCE 08/12/17 Albuterol 0.083% Nebulizer Bela [Ventolin 0.083% Nebulizer Soln -] 1 amp NEB TID PRN 08/12/17 Aspirin 81 mg GT DAILY 08/12/17 Carvedilol 6.25 mg GT BID 08/12/17 Doxazosin Mesylate [Cardura] 1 mg GT DAILY 08/12/17 Fosinopril Sodium 10 mg GT DAILY 08/12/17 Ipratropium [place] 0.2 mg IH QID 08/12/17 L. Acidophilus/Pectin, [place] [Acidophilus Capsule] 1 each GT DAILY 08/12/17 Magnesium Hydroxide [Milk of Magnesia] 30 ml GT PRN 08/12/17 Metformin HCl 500 mg GT DAILY 08/12/17 Rivaroxaban [Xarelto -] 15 mg GT DAILY 08/12/17 Sennosides [Senna] 2 tab GT HS 08/12/17 Valproate Sodium Liquid [Depakene] 250 mg GT BID 08/12/17 Review of Systems Findings/Remarks: The patient is unable to give a history. Vital Signs: Vital Signs Temperature 97.8 F 08/12/17 11:54 Pulse Rate 118 H 08/12/17 11:54 Respiratory Rate 26 H 08/12/17 11:54 Blood Pressure 91/61 08/12/17 11:54 O2 Sat by Pulse Oximetry (%) 91 L 08/12/17 11:54 Constitutional: Yes: Severe Distress Neck: Yes: WNL Respiratory: Yes: Rhonchi (Severe bilateral rhochi) Gastrointestinal: Yes: Soft Cardiovascular: Yes: Regular Rate and Rhythm Heart Sounds: Yes: S1, S2 (No Mum[place]) Extremities: Yes: WNL Edema: No Neurological: Yes: Other (Unsponsive to questions) - Other Data Labs, Other Data: CBC, BMP 08/12/17 10:43 INR, PTT INR 1.89 (0.82-1.09) H 08/12/17 03:43 Assessment/Plan Reparatory Distress Secondary to possible pneumonia Tachycardia secondary to hypoxia and anemia Troponin pending Obtain an echocardiogram Will follow with you
--- NOTE | 2017-08-12 14:58 | CON.PULM ---
Consult Consult Specialty:: PULMONARY/CCM Referred by:: Dr. Vigil Reason for Consultation:: respiratory failure - History of Present Illness Chief Complaint: hypoxia History of Present Illness: 77yo male with h/o HTN, DM, CAD, atrial fibrillation, seizure disorder, bipoloar disorder, idiopathic orofacial dystonia, h/o CVA who was sent from the half-way for fevers and respiratory distress. Hypoxic to 70-90s even with NRB, pt unable to provide further history at this time. CXR showing right sided infiltrates. Labwork significant for lactic acidosis, anemia and hypernatremia. 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 Cardio/Vascular: Yes: HTN Gastrointestinal: Yes: Other (peg) Endocrine: Yes: Diabetes Mellitus - Past Surgical History Additional Surgical History: peg - Smoking History Smoking history: Unknown if ever smoked Home Medications - Allergies Allergies/Adverse Reactions: Allergies Allergy/AdvReac Type Severity Reaction Status Date / Time lithium Allergy Verified 08/12/17 03:34 - Home Medications Home Medications: Ambulatory Orders Acetaminophen [Tylenol] 650 mg GT ONCE 08/12/17 Albuterol 0.083% Nebulizer Bela [Ventolin 0.083% Nebulizer Soln -] 1 amp NEB TID PRN 08/12/17 Aspirin 81 mg GT DAILY 08/12/17 Carvedilol 6.25 mg GT BID 08/12/17 Doxazosin Mesylate [Cardura] 1 mg GT DAILY 08/12/17 Fosinopril Sodium 10 mg GT DAILY 08/12/17 Ipratropium [place] 0.2 mg IH QID 08/12/17 L. Acidophilus/Pectin, [place] [Acidophilus Capsule] 1 each GT DAILY 08/12/17 Magnesium Hydroxide [Milk of Magnesia] 30 ml GT PRN 08/12/17 Metformin HCl 500 mg GT DAILY 08/12/17 Rivaroxaban [Xarelto -] 15 mg GT DAILY 08/12/17 Sennosides [Senna] 2 tab GT HS 08/12/17 Valproate Sodium Liquid [Depakene] 250 mg GT BID 08/12/17 Family Disease History - Family Disease History Family History: Unable to Obtain Review of Systems Unable to obtain ROS, reason: pt in distress Physical Exam Vital Sings: Vital Signs Temperature 97.8 F 08/12/17 11:54 Pulse Rate 118 H 08/12/17 11:54 Respiratory Rate 26 H 08/12/17 11:54 Blood Pressure 91/61 08/12/17 11:54 O2 Sat by Pulse Oximetry (%) 91 L 08/12/17 11:54 Constitutional: Yes: Severe Distress Eyes: Yes: Conjunctiva Clear, EOM Intact HENT: Yes: Atraumatic, Normocephalic Neck: Yes: Supple, Trachea Midline Cardiovascular: Yes: Tachycardia Respiratory: Yes: Rales, Rhonchi ...Clubbing: No Gastrointestinal: Yes: Normal Bowel Sounds, Soft. No: Tenderness Edema: No Neurological: Yes: Lethargy Labs: CBC, BMP 08/12/17 10:43 Imaging - Results Chest X-ray: Report Reviewed, Image Reviewed (right sided infiltrates) Problem List - Problems (1) Acute respiratory failure with hypoxia Code(s): J96.01 - ACUTE RESPIRATORY FAILURE WITH HYPOXIA (2) Pneumonia Code(s): J18.9 - PNEUMONIA, UNSPECIFIED ORGANISM (3) Severe sepsis Code(s): A41.9 - SEPSIS, UNSPECIFIED ORGANISM; R65.20 - SEVERE SEPSIS WITHOUT SEPTIC SHOCK (4) Lactic acidosis Code(s): E87.2 - ACIDOSIS (5) Hypernatremia Code(s): E87.0 - HYPEROSMOLALITY AND HYPERNATREMIA (6) CAD (coronary artery disease) Code(s): I25.10 - ATHSCL HEART DISEASE OF [place] CORONARY ARTERY W/O ANG PCTRS (7) Atrial fibrillation Code(s): I48.91 - UNSPECIFIED ATRIAL FIBRILLATION (8) Bipolar disorder Code(s): F31.9 - BIPOLAR DISORDER, UNSPECIFIED Assessment/Plan Acute Hypoxic Respiratory Failure Pneumonia Severe Sepsis Lactic Acidosis Anemia Atrial Fibrillation with RVR Bipolar Disorder HTN DM Seizure Disorder - continue antibiotics - f/u cultures - inhaled bronchodilators - O2 to keep SpO2 >90% - aspiration precautions - monitor H/H - rate control once hemodynamics stable - hold anticoagulation due to anemia - discussed at length with daughter Melva Gaytan who now lives in [place], states that he has been in declining health and worsening mental status since a stroke last year, now s/p PEG placement and bedbound requiring full care. Discussed critical condition of her father and that he is in extremis and would require intubation and mechanical ventilation in order to stabilize him. She states that he would not want these aggressive measures especially considering his pre-admission functional status. Agrees to medical therapy including IVF, medications, antibiotics, O2. If becomes more tachypneic or in worsening distress,will initiate comfort measures. - pt DNR/DNI, can monitor on floor Thank you for this consult Bill Landin MD
[2017-08-12 15:03] LABS: ANION GAP 8 (8-16); BLOOD UREA NITROGEN 58 mg/dL (7-18); CALCIUM 7.4 mg/dL (8.5-10.1); CHLORIDE 116 mmol/L (98-107); CO2 26 mmol/L (21-32); CREATININE 0.6 mg/dL (0.7-1.3); GLUCOSE,RANDOM 116 mg/dL (74-106); POTASSIUM 4.2 mmol/L (3.5-5.1); SODIUM 150 mmol/L (136-145)
--- NOTE | 2017-08-12 15:07 | CONS ---
DATE OF CONSULTATION: DATE OF DICTATION: 08/12/2017 INFECTIOUS DISEASE CONSULTATION REQUESTING PHYSICIAN: Renetta Vigil M.D. HISTORY OF PRESENT ILLNESS: The patient is a 77-year-old man who comes from the senior living, with past medical history of hypertension, atrial fibrillation, seizure disorder. He presents to the ER with fever and respiratory distress. On chest x-ray, he has a left-sided infiltrate. He is nonverbal not speaking. He is on 100% nonrebreather, with a blood pressure of 90/60. His blood pressure dropped to as low as 70/54, and he was given IV fluid boluses, with improvement. He is unable to give any history. PAST MEDICAL HISTORY: Notable for history of hypertension, atrial fibrillation, diabetes, orofacial dystonia, coronary artery disease, seizure disorder, influenza in the past, constipation, bipolar disorder, BPH and history of UTI. ALLERGIES: HE IS ALLERGIC TO LITHIUM. MEDICATIONS: His medications at the senior living include Ventolin nebulizer, aspirin, Coreg, Cardura, lisinopril, ipratropium bromide, acidophilus, milk of magnesia, metformin, Xarelto, Senna and Depakene. REVIEW OF SYSTEMS: Not available. PHYSICAL EXAMINATION: General: He is contracted. He is unable to follow any commands. He has a nonrebreather mask. Vital Signs: Current temperature is 97.8. Maximum temperature was 103.6. Pulse is 118, blood pressure 91/61, respiratory rate 26, and he is saturating 91% on a nonrebreather mask. HEENT: He is normocephalic. He will not open his mouth. He has a nonrebreather mask in place. Lungs: Diffuse rhonchi throughout. Heart: Regular rate and rhythm. He is tachycardic. Abdomen: Soft. Extremities: Contracted. Genitourinary: He has a [place] in place. DIAGNOSTIC STUDIES: White count on admission was 12.4 and now is 9.9; hemoglobin 7.2; platelets 255. BUN and creatinine were 78 and 1.2, respectively, and now BUN 71 and creatinine 1. Lactic acid was 5 on admission, repeat of 3.8. Urinalysis is negative. Stool occult blood is negative. He had an influenza screen that was negative. Blood and urine cultures are pending. Chest x-ray with a right lung infiltrate. ASSESSMENT: In summary, this is a 77-year-old man with pneumonia. He is quite hypoxic on 100% nonrebreather. Concern for impending respiratory failure, with hypotension and anemia. We will treat him for senior living acquired pneumonia as well as aspiration with vancomycin, Zosyn and Zithromax. Cultures have been sent. Would obtain a Legionella urinary antigen and a sputum culture. ICU consult. I spoke with the manager critical care, and a blood gas has been ordered as well. Further recommendations to follow. Nichole [id number]
[2017-08-12] MEDS ORDERED: morphine CARPU-JECT 10 MG/1 ML DISP.SYRIN IVPUSH PRN (15:08)
[2017-08-12] MEDS: ALBUTEROL SO4 2.5/IPRATROPIUM 0.5 INH SOL 3 ML VIAL.NEB. NEB SCH ×2 (16:29→20:10)
[2017-08-12] MEDS: PIPERACILLIN/TAZOB 4.5 GM 4.5 GM in DEXTROSE 5%-WATER - 100 ML IVPB SCH ×2 (16:29→19:54)
[2017-08-12] MEDS: SODIUM CHLORIDE 0.45% 1,000 ML IV SCH (16:30)
--- NOTE | 2017-08-12 17:33 | CONSULT ---
Consult Consult Specialty:: Hematology - History of Present Illness History of Present Illness: 77 year old male with pmhx of HTN, DM, a-fib, CAD, epilepsy, BPH and bipolar who was sent in from the [place] for fever and respiratory distress. He was found to have a PNA on cxr. He is unable to give history. Called for anemia ER noted reviewed. 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 Cardio/Vascular: Yes: HTN Gastrointestinal: Yes: Other (peg) Endocrine: Yes: Diabetes Mellitus - Past Surgical History Additional Surgical History: peg - Smoking History Smoking history: Unknown if ever smoked Home Medications - Allergies Allergies/Adverse Reactions: Allergies Allergy/AdvReac Type Severity Reaction Status Date / Time lithium Allergy Verified 08/12/17 03:34 - Home Medications Home Medications: Ambulatory Orders Acetaminophen [Tylenol] 650 mg GT ONCE 08/12/17 Albuterol 0.083% Nebulizer Bela [Ventolin 0.083% Nebulizer Soln -] 1 amp NEB TID PRN 08/12/17 Aspirin 81 mg GT DAILY 08/12/17 Carvedilol 6.25 mg GT BID 08/12/17 Doxazosin Mesylate [Cardura] 1 mg GT DAILY 08/12/17 Fosinopril Sodium 10 mg GT DAILY 08/12/17 Ipratropium [place] 0.2 mg IH QID 08/12/17 L. Acidophilus/Pectin, [place] [Acidophilus Capsule] 1 each GT DAILY 08/12/17 Magnesium Hydroxide [Milk of Magnesia] 30 ml GT PRN 08/12/17 Metformin HCl 500 mg GT DAILY 08/12/17 Rivaroxaban [Xarelto -] 15 mg GT DAILY 08/12/17 Sennosides [Senna] 2 tab GT HS 08/12/17 Valproate Sodium Liquid [Depakene] 250 mg GT BID 08/12/17 Physical Exam Vital Signs: Vital Signs Temperature 99.6 F 08/12/17 15:00 Pulse Rate 130 H 08/12/17 17:08 Respiratory Rate 26 H 08/12/17 17:08 Blood Pressure 90/60 08/12/17 17:08 O2 Sat by Pulse Oximetry (%) 90 L 08/12/17 17:08 Constitutional: Yes: Cachectic, Moderate Distress, Poor Hygeine HENT: Yes: Atraumatic, Normocephalic Cardiovascular: Yes: Regular Rate and Rhythm, Tachycardia Respiratory: Yes: On Venti-Mask Extremities: Yes: Other (contractures) Edema: No Neurological: Yes: Lethargy, Unresponsive, Other (pulse present) Labs: CBC, BMP 08/12/17 10:43 08/12/17 14:05 Imaging - Results X-ray: Report Reviewed Assessment/Plan Was notified by RN that pt is on comfort measures, reportedly DNR/DNI, family even refused prbcs Anemia could be multi-factorial, cannot rule out bleeding Patient is in respiratory distress on venti mask.
[2017-08-12] MEDS ORDERED: ACETAMINOPHEN 650 MG/20.3 ML ORAL SOLUTION (CUPS) GT PRN (20:11)
[2017-08-12 21:34] LABS: URINE APPEARANCE CLEAR; URINE BILIRUBIN NEGATIVE (NEGATIVE); URINE BLOOD 1+ (NEGATIVE); URINE COLOR YELLOW; URINE GLUCOSE (UA) NEGATIVE (NEGATIVE); URINE KETONE NEGATIVE (NEGATIVE); URINE NITRITE NEGATIVE (NEGATIVE); URINE PROTEIN NEGATIVE (NEGATIVE); URINE UROBILINOGEN NEGATIVE mg/dL (0.2-1.0)
[2017-08-12 21:35] LABS: URINE LEUK ESTERASE 2+ (NEGATIVE)
[2017-08-12] MEDS ORDERED: PT OWN MED DRAWER 7, Y5N ONE (21:39)
[2017-08-12 21:40] LABS: EPI CELLS RARE /HPF (FEW); URINE MUCUS RARE
[2017-08-12] MEDS ORDERED: CHLORHEXIDINE GLUCONATE 4% CLEANSER FOR DECOLONIZATION TP SCH ×2 (22:00→23:43)
[2017-08-12] MEDS ORDERED: MUPIROCIN 2% TOPICAL OINTMENT FOR DECOLONIZATION NS SCH (23:43)
[2017-08-13] MEDS: INSULIN SLIDING SCALE (NOVOLOG) 1 VIAL SQ SCH ×4 (00:54→17:30)
[2017-08-13] MEDS ORDERED: PT OWN MED DRAWER 7, Y5N ONE ×5 (02:14→22:24)
[2017-08-13] MEDS: PIPERACILLIN/TAZOB 4.5 GM 4.5 GM in DEXTROSE 5%-WATER - 100 ML IVPB SCH ×3 (02:29→17:30)
[2017-08-13] MEDS: methylPREDNISolone NA SUCC 40 MG/1 ML VIAL IVPUSH SCH ×4 (02:29→22:28)
[2017-08-13] MEDS: COLLAGENASE CLOSTRIDIUM HIST. 30 GRAMS TUBE TP SCH ×3 (02:46→22:29)
[2017-08-13] MEDS ORDERED: SODIUM CHLORIDE 0.45% 1,000 ML IV SCH (05:45)
[2017-08-13] MEDS: VANCOMYCIN 1,000 MG in DEXTROSE 5%-WATER - 250 ML IVPB SCH (06:30)
[2017-08-13] MEDS: SODIUM CHLORIDE 0.45% 1,000 ML IV SCH (06:30)
[2017-08-13] MEDS: ALBUTEROL SO4 2.5/IPRATROPIUM 0.5 INH SOL 3 ML VIAL.NEB. NEB SCH ×4 (08:00→21:12)
[2017-08-13 08:05] LABS: CALCIUM 7.7 mg/dL (8.5-10.1); CHLORIDE 117 mmol/L (98-107); POTASSIUM 3.9 mmol/L (3.5-5.1); SODIUM 152 mmol/L (136-145)
[2017-08-13 08:13] LABS: ALBUMIN 1.4 g/dl (3.4-5.0); ALK PHOS 59 U/L (45-117); ANION GAP 10 (8-16); BILIRUBIN,TOTAL 0.6 mg/dL (0.2-1.0); BLOOD UREA NITROGEN 52 mg/dL (7-18); CO2 25 mmol/L (21-32); CREATININE 0.6 mg/dL (0.7-1.3); GLUCOSE,RANDOM 105 mg/dL (74-106); LDH 248 U/L (87-241); SGOT/AST 42 U/L (15-37); SGPT/ALT 34 U/L (12-78); TOT PROT 5.9 g/dl (6.4-8.2)
[2017-08-13] MEDS ORDERED: IRON SUCROSE INJECTION 200 MG in SODIUM CHLORIDE 100 ML IVPB ONE (09:04)
[2017-08-13 09:52] LABS: HEMATOCRIT 20.9 % (35.4-49); MCH 25.1 pg (25.7-33.7); MCHC 29.6 g/dl (32.0-35.9); MEAN CELL VOLUME 84.9 fl (80-96); MEAN PLT VOLUME 9.4 fl (7.5-11.1); PLATELET COUNT 261 K/MM3 (134-434); RBC 2.46 M/mm3 (4.00-5.60); RDW 18.6 % (11.9-15.9); WHITE BLOOD COUNT 12.1 K/mm3 (4.0-10.0)
[2017-08-13] MEDS ORDERED: VANCOMYCIN 1 GRAM (PRE-DOCKED) 1,000 MG/250 ML BAG IVPB SCH (10:00)
[2017-08-13] MEDS ORDERED: MUPIROCIN 2% TOPICAL OINTMENT FOR DECOLONIZATION NS SCH (10:00)
[2017-08-13 10:26] LABS: HEMOGLOBIN 6.2 GM/dL (11.7-16.9)
[2017-08-13] MEDS: VALPROATE SODIUM 250 MG/5 ML UNIT DOSE CUP GT SCH ×2 (10:47→23:10)
[2017-08-13] MEDS: LACTOBACILLUS ACIDOPHILUS 1 EACH TAB (FP) GT SCH (10:47)
[2017-08-13] MEDS: AZITHROMYCIN IVPB 500 MG in DEXTROSE 5%-WATER - 250 ML IVPB SCH (11:52)
--- NOTE | 2017-08-13 13:10 | PN ---
Progress Note (short form) - Note Progress Note: Patient seen and examined on Telemetry. Remains on NRBM, tachypneic but not in acute distress. Confused, but interactive. Intake & Output 08/10/17 08/11/17 08/12/17 08/13/17 23:59 23:59 23:59 23:59 Intake Total 2485 500 Output Total 1175 500 Balance 1310 0 Weight 140 lb Last Vital Signs Temp Pulse Resp BP Pulse Ox 98.5 F 109 H 22 88/52 97 08/13/17 05:40 08/13/17 06:51 08/13/17 06:51 08/13/17 06:51 08/12/17 21:00 Active Medications Acetaminophen (Tylenol Oral Solution -) 650 mg GT Q6H PRN PRN Reason: FEVER Last Admin: 08/12/17 21:43 Dose: 650 mg Albuterol Sulfate (Ventolin 0.083% Nebulizer Soln -) 1 amp NEB Q4H PRN PRN Reason: SHORT OF BREATH/WHEEZING Albuterol/Ipratropium (Duoneb -) 1 amp NEB RQID [facility] Last Admin: 08/13/17 11:46 Dose: 1 amp Collagenase (Santyl -) 1 applic TP BID [facility] Last Admin: 08/13/17 10:47 Dose: 1 applic Azithromycin 500 mg/ Dextrose 250 mls @ 250 mls/hr IVPB DAILY [facility] Last Admin: 08/13/17 11:52 Dose: 250 mls/hr Vancomycin HCl 1,000 mg/ (Dextrose) 250 mls @ 166.667 mls/hr IVPB DAILY@0700 [facility] Last Admin: 08/13/17 06:30 Dose: 166.667 mls/hr Piperacillin Sod/Tazobactam (Sod 4.5 gm/ Dextrose) 100 mls @ 200 mls/hr IVPB Q8H-IV [facility] [place] Last Admin: 08/13/17 10:47 Dose: 200 mls/hr Sodium Chloride (1/2 Normal Saline) 1,000 mls @ 83 mls/hr IV ASDIR [facility] [place] Last Admin: 08/13/17 06:30 Dose: 83 mls/hr Insulin Aspart (Novolog Vial Sliding Scale -) 1 vial SQ Q6HPO [facility] [place] PRN Reason: Protocol Last Admin: 08/13/17 12:00 Dose: Not Given Lactobacillus Acidophilus (Bacid -) 1 tab GT DAILY [facility] [place] Last Admin: 08/13/17 10:47 Dose: 1 tab Methylprednisolone Sodium Succinate (Solu-Medrol -) 40 mg IVPUSH Q6H-IV [facility] Last Admin: 08/13/17 10:00 Dose: 40 mg Morphine Sulfate (Morphine Injection -) 2 mg IVPUSH Q2H PRN PRN Reason: PAIN LEVEL 1-5 Valproate Sodium (Depakene -) 250 mg GT BID [facility] [place] Last Admin: 08/13/17 10:47 Dose: 250 mg Constitutional: Yes: Tachypneric at rest, Confusion Eyes: Yes: Conjunctiva Clear, EOM Intact HENT: Yes: Atraumatic, Normocephalic Neck: Yes: Supple, Trachea Midline Cardiovascular: Yes: Tachycardia Respiratory: Yes: Bilateral Rales, Rhonchi ...Clubbing: No Gastrointestinal: Yes: Normal Bowel Sounds, Soft. No: Tenderness Edema: No Neurological: Yes: Lethargy Labs: Laboratory Results - last 24 hr 08/12/17 08/12/17 08/12/17 14:05 20:20 20:20 WBC RBC Hgb Hct MCV MCH MCHC RDW Plt Count MPV Retic Count Sodium 150 H Potassium 4.2 Chloride 116 H Carbon Dioxide 26 Anion Gap 8 BUN 58 H Creatinine 0.6 L D Creat Clearance w eGFR POC Glucometer Random Glucose 116 H D Calcium 7.4 L Ferritin Total Bilirubin AST ALT Alkaline Phosphatase LD Total Creatine Kinase 228 Creatine Kinase Index 0.5 CK-MB (CK-2) 1.257 Troponin I 0.04 Total Protein Albumin Vitamin B12 Urine Color Yellow Urine Appearance Clear Urine pH 5.0 Ur Specific [place] 1.019 Urine Protein Negative Urine Glucose (UA) Negative Urine Ketones Negative Urine Blood 1+ H Urine Nitrite Negative Urine Bilirubin Negative Urine Urobilinogen Negative Ur Leukocyte Esterase 2+ H Urine WBC (Auto) 13 Urine RBC (Auto) 7 Ur Epithelial Cells Rare Urine Mucus Rare Ur Random Sodium 11 Ur Random Potassium 35.3 Ur Random Chloride < 10 Urine Creatinine 46.0 Stool Occult Blood 08/12/17 08/13/17 08/13/17 21:56 05:34 05:35 WBC RBC Hgb Hct MCV MCH MCHC RDW Plt Count MPV Retic Count Sodium 152 H Potassium 3.9 Chloride 117 H Carbon Dioxide 25 Anion Gap 10 BUN 52 H Creatinine 0.6 L Creat Clearance w eGFR > 60 POC Glucometer 134 122 Random Glucose 105 Calcium 7.7 L Ferritin 1198.569 H Total Bilirubin 0.6 D AST 42 H D ALT 34 D Alkaline Phosphatase 59 LD Total 248 H Creatine Kinase Creatine Kinase Index CK-MB (CK-2) Troponin I Total Protein 5.9 L Albumin 1.4 L Vitamin B12 890 Urine Color Urine Appearance Urine pH Ur Specific [place] Urine Protein Urine Glucose (UA) Urine Ketones Urine Blood Urine Nitrite Urine Bilirubin Urine Urobilinogen Ur Leukocyte Esterase Urine WBC (Auto) Urine RBC (Auto) Ur Epithelial Cells Urine Mucus Ur Random Sodium Ur Random Potassium Ur Random Chloride Urine Creatinine Stool Occult Blood 08/13/17 08/13/17 08/13/17 05:35 05:35 05:35 WBC RBC Hgb Hct MCV MCH MCHC RDW Plt Count MPV Retic Count 1.17 Sodium Potassium Chloride Carbon Dioxide Anion Gap BUN Creatinine Creat Clearance w eGFR POC Glucometer Random Glucose Calcium Ferritin Cancelled Total Bilirubin AST ALT Alkaline Phosphatase LD Total Cancelled Creatine Kinase Creatine Kinase Index CK-MB (CK-2) Troponin I Total Protein Albumin Vitamin B12 Cancelled Urine Color Urine Appearance Urine pH Ur Specific [place] Urine Protein Urine Glucose (UA) Urine Ketones Urine Blood Urine Nitrite Urine Bilirubin Urine Urobilinogen Ur Leukocyte Esterase Urine WBC (Auto) Urine RBC (Auto) Ur Epithelial Cells Urine Mucus Ur Random Sodium Ur Random Potassium Ur Random Chloride Urine Creatinine Stool Occult Blood 08/13/17 08/13/17 08/13/17 08:40 09:35 11:58 WBC 12.1 H RBC 2.46 L Hgb 6.2 L* D Hct 20.9 L MCV 84.9 MCH 25.1 L MCHC 29.6 L RDW 18.6 H Plt Count 261 MPV 9.4 Retic Count Sodium Potassium Chloride Carbon Dioxide Anion Gap BUN Creatinine Creat Clearance w eGFR POC Glucometer 143 Random Glucose Calcium Ferritin Total Bilirubin AST ALT Alkaline Phosphatase LD Total Creatine Kinase Creatine Kinase Index CK-MB (CK-2) Troponin I Total Protein Albumin Vitamin B12 Urine Color Urine Appearance Urine pH Ur Specific [place] Urine Protein Urine Glucose (UA) Urine Ketones Urine Blood Urine Nitrite Urine Bilirubin Urine Urobilinogen Ur Leukocyte Esterase Urine WBC (Auto) Urine RBC (Auto) Ur Epithelial Cells Urine Mucus Ur Random Sodium Ur Random Potassium Ur Random Chloride Urine Creatinine Stool Occult Blood Negative Problem List - Problems (1) Acute respiratory failure with hypoxia Code(s): J96.01 - ACUTE RESPIRATORY FAILURE WITH HYPOXIA (2) Pneumonia Code(s): J18.9 - PNEUMONIA, UNSPECIFIED ORGANISM (3) Severe sepsis Code(s): A41.9 - SEPSIS, UNSPECIFIED ORGANISM; R65.20 - SEVERE SEPSIS WITHOUT SEPTIC SHOCK (4) Lactic acidosis Code(s): E87.2 - ACIDOSIS (5) Hypernatremia Code(s): E87.0 - HYPEROSMOLALITY AND HYPERNATREMIA (6) CAD (coronary artery disease) Code(s): I25.10 - ATHSCL HEART DISEASE OF [place] CORONARY ARTERY W/O ANG PCTRS (7) Atrial fibrillation Code(s): I48.91 - UNSPECIFIED ATRIAL FIBRILLATION (8) Bipolar disorder Code(s): F31.9 - BIPOLAR DISORDER, UNSPECIFIED Assessment/Plan Acute Hypoxic Respiratory Failure Pneumonia Severe Sepsis Lactic Acidosis Anemia Atrial Fibrillation with RVR Bipolar Disorder HTN DM Seizure Disorder - ABX coverage - f/u cultures - inhaled bronchodilators - O2 to keep SpO2 >90% - aspiration precautions - monitor H/H - rate control once hemodynamics stable - hold anticoagulation due to anemia - DNR/DNI Dr Bolden
--- NOTE | 2017-08-13 13:54 | PN ---
Progress Note, Physician History of Present Illness: Pt seen and examined at bedside. He looks much more comfortable than he did yesterday. Family are at bedside and care was discussed with them. - Current Medication List Current Medications: Active Medications Acetaminophen (Tylenol Oral Solution -) 650 mg GT Q6H PRN PRN Reason: FEVER Last Admin: 08/12/17 21:43 Dose: 650 mg Albuterol Sulfate (Ventolin 0.083% Nebulizer Soln -) 1 amp NEB Q4H PRN PRN Reason: SHORT OF BREATH/WHEEZING Albuterol/Ipratropium (Duoneb -) 1 amp NEB RQID [facility] Last Admin: 08/13/17 11:46 Dose: 1 amp Collagenase (Santyl -) 1 applic TP BID [facility] Last Admin: 08/13/17 10:47 Dose: 1 applic Azithromycin 500 mg/ Dextrose 250 mls @ 250 mls/hr IVPB DAILY [facility] Last Admin: 08/13/17 11:52 Dose: 250 mls/hr Vancomycin HCl 1,000 mg/ (Dextrose) 250 mls @ 166.667 mls/hr IVPB DAILY@0700 [facility] Last Admin: 08/13/17 06:30 Dose: 166.667 mls/hr Piperacillin Sod/Tazobactam (Sod 4.5 gm/ Dextrose) 100 mls @ 200 mls/hr IVPB Q8H-IV [facility] Last Admin: 08/13/17 10:47 Dose: 200 mls/hr Sodium Chloride (1/2 Normal Saline) 1,000 mls @ 83 mls/hr IV ASDIR [facility] Last Admin: 08/13/17 06:30 Dose: 83 mls/hr Insulin Aspart (Novolog Vial Sliding Scale -) 1 vial SQ Q6HPO [facility] PRN Reason: Protocol Last Admin: 08/13/17 12:00 Dose: Not Given Lactobacillus Acidophilus (Bacid -) 1 tab GT DAILY [facility] Last Admin: 08/13/17 10:47 Dose: 1 tab Methylprednisolone Sodium Succinate (Solu-Medrol -) 40 mg IVPUSH Q6H-IV [facility] Last Admin: 08/13/17 10:00 Dose: 40 mg Morphine Sulfate (Morphine Injection -) 2 mg IVPUSH Q2H PRN PRN Reason: PAIN LEVEL 1-5 Valproate Sodium (Depakene -) 250 mg GT BID [facility] Last Admin: 08/13/17 10:47 Dose: 250 mg - Objective Vital Signs: Vital Signs Temperature 98.5 F 08/13/17 05:40 Pulse Rate 109 H 08/13/17 06:51 Respiratory Rate 22 08/13/17 06:51 Blood Pressure 88/52 08/13/17 06:51 O2 Sat by Pulse Oximetry (%) 97 08/12/17 21:00 Constitutional: Yes: Calm Eyes: Yes: Conjunctiva Clear Cardiovascular: Yes: S1, S2 Respiratory: Yes: On Venti-Mask, Rhonchi Gastrointestinal: Yes: Soft Genitourinary: Yes: Incontinence Musculoskeletal: Yes: Muscle Weakness Edema: No Neurological: Yes: Pre-Existing Deficit Labs: CBC, BMP 08/13/17 09:35 08/13/17 05:35 INR, PTT INR 1.89 (0.82-1.09) H 08/12/17 03:43 - ....Imaging Ultrasound: Report Reviewed (mild right hydro) Problem List - Problems (1) Anemia Code(s): D64.9 - ANEMIA, UNSPECIFIED (2) COPD (chronic obstructive pulmonary disease) Code(s): J44.9 - CHRONIC OBSTRUCTIVE PULMONARY DISEASE, UNSPECIFIED (3) Fever Code(s): R50.9 - FEVER, UNSPECIFIED (4) Hypernatremia Code(s): E87.0 - HYPEROSMOLALITY AND HYPERNATREMIA (5) Pneumonia Code(s): J18.9 - PNEUMONIA, UNSPECIFIED ORGANISM (6) Sepsis Code(s): A41.9 - SEPSIS, UNSPECIFIED ORGANISM Assessment/Plan Current Medications Generic Name Dose Route Start Last Admin Trade Name Genq PRN Reason Stop Dose Admin Acetaminophen 650 mg 08/12/17 20:11 08/12/17 21:43 Tylenol Oral Solution - GT 650 mg Q6H PRN Administration FEVER Albuterol Sulfate 1 amp 08/12/17 23:43 Ventolin 0.083% Nebulizer Soln - NEB Q4H PRN SHORT OF BREATH/WHEEZING Albuterol/Ipratropium 1 amp 08/13/17 08:00 08/13/17 11:46 Duoneb - NEB 1 amp RQID [facility] Administration Collagenase 1 applic 08/13/17 10:00 08/13/17 10:47 Santyl - TP 1 applic BID [facility] Administration Azithromycin 500 mg/ Dextrose 250 mls @ 250 mls/hr 08/13/17 10:00 08/13/17 11 :52 IVPB 250 mls/hr DAILY [facility] Administration Vancomycin HCl 1,000 mg/ 250 mls @ 166.667 mls/hr 08/13/17 07:00 08/13/17 06: 30 Dextrose IVPB 166.667 mls/hr DAILY@0700 [facility] Administration Piperacillin Sod/Tazobactam 100 mls @ 200 mls/hr 08/12/17 13:15 08/13/17 10: 47 Sod 4.5 gm/ Dextrose IVPB 200 mls/hr Q8H-IV [facility] Administration Sodium Chloride 1,000 mls @ 83 mls/hr 08/12/17 13:30 08/13/17 06:30 1/2 Normal Saline IV 83 mls/hr ASDIR [facility] Administration Insulin Aspart 1 vial 08/13/17 00:00 08/13/17 12:00 Novolog Vial Sliding Scale - SQ Not Given Q6HPO [facility] Protocol Lactobacillus Acidophilus 1 tab 08/13/17 10:00 08/13/17 10:47 Bacid - GT 1 tab DAILY [facility] Administration Methylprednisolone Sodium Succinate 40 mg 08/13/17 03:00 08/13/17 10:00 Solu-Medrol - IVPUSH 40 mg Q6H-IV [facility] Administration Morphine Sulfate 2 mg 08/12/17 15:08 Morphine Injection - IVPUSH Q2H PRN PAIN LEVEL 1-5 Valproate Sodium 250 mg 08/13/17 10:00 08/13/17 10:47 Depakene - GT 250 mg BID [facility] Administration Impression 1. NEAL 2. hypernatremia 3. PNA 4. dysphagia 5. DM 6. HTN 7. hypoxia 8. mild right hydro Plan - renal function is improved - increase free water with feeds - sodium is higher today - urology eval for hydro and for cyst - cont hypotonic fluids - monitor bp - cont abx - discussed with family - will follow Dr Dorsey
[2017-08-13] MEDS ORDERED: DEXTROSE 5%-1/3 NS - 500 ML IV SCH (14:00)
--- NOTE | 2017-08-13 14:01 | PN ---
Progress Note, Physician History of Present Illness: Respiratory status improved. Not in distress. No signs of GI bleeding. Hgb 6 today. - Current Medication List Current Medications: Active Medications Acetaminophen (Tylenol Oral Solution -) 650 mg GT Q6H PRN PRN Reason: FEVER Last Admin: 08/12/17 21:43 Dose: 650 mg Albuterol Sulfate (Ventolin 0.083% Nebulizer Soln -) 1 amp NEB Q4H PRN PRN Reason: SHORT OF BREATH/WHEEZING Albuterol/Ipratropium (Duoneb -) 1 amp NEB RQID [facility] Last Admin: 08/13/17 11:46 Dose: 1 amp Collagenase (Santyl -) 1 applic TP BID [facility] Last Admin: 08/13/17 10:47 Dose: 1 applic Azithromycin 500 mg/ Dextrose 250 mls @ 250 mls/hr IVPB DAILY [facility] Last Admin: 08/13/17 11:52 Dose: 250 mls/hr Vancomycin HCl 1,000 mg/ (Dextrose) 250 mls @ 166.667 mls/hr IVPB DAILY@0700 [facility] Last Admin: 08/13/17 06:30 Dose: 166.667 mls/hr Piperacillin Sod/Tazobactam (Sod 4.5 gm/ Dextrose) 100 mls @ 200 mls/hr IVPB Q8H-IV [facility] Last Admin: 08/13/17 10:47 Dose: 200 mls/hr Sodium Chloride (1/2 Normal Saline) 1,000 mls @ 83 mls/hr IV ASDIR [facility] Last Admin: 08/13/17 06:30 Dose: 83 mls/hr Insulin Aspart (Novolog Vial Sliding Scale -) 1 vial SQ Q6HPO [facility] PRN Reason: Protocol Last Admin: 08/13/17 12:00 Dose: Not Given Lactobacillus Acidophilus (Bacid -) 1 tab GT DAILY [facility] Last Admin: 08/13/17 10:47 Dose: 1 tab Methylprednisolone Sodium Succinate (Solu-Medrol -) 40 mg IVPUSH Q6H-IV [facility] Last Admin: 08/13/17 10:00 Dose: 40 mg Morphine Sulfate (Morphine Injection -) 2 mg IVPUSH Q2H PRN PRN Reason: PAIN LEVEL 1-5 Valproate Sodium (Depakene -) 250 mg GT BID [facility] Last Admin: 08/13/17 10:47 Dose: 250 mg - Objective Vital Signs: Vital Signs Temperature 98.5 F 08/13/17 05:40 Pulse Rate 109 H 08/13/17 06:51 Respiratory Rate 22 08/13/17 06:51 Blood Pressure 88/52 08/13/17 06:51 O2 Sat by Pulse Oximetry (%) 97 08/12/17 21:00 Gastrointestinal: Yes: Normal Bowel Sounds, Soft. No: Melena, Rectal Bleeding, Tenderness, Tenderness, Epigastrium, Tenderness, Rebound Labs: CBC, BMP 08/13/17 09:35 08/13/17 05:35 INR, PTT INR 1.89 (0.82-1.09) H 08/12/17 03:43 CBCD WBC 12.1 K/mm3 (4.0-10.0) H 08/13/17 09:35 RBC 2.46 M/mm3 (4.00-5.60) L 08/13/17 09:35 Hgb 6.2 GM/dL (11.7-16.9) L* D 08/13/17 09:35 Hct 20.9 % (35.4-49) L 08/13/17 09:35 MCV 84.9 fl (80-96) 08/13/17 09:35 MCHC 29.6 g/dl (32.0-35.9) L 08/13/17 09:35 RDW 18.6 % (11.9-15.9) H 08/13/17 09:35 Plt Count 261 K/MM3 (134-434) 08/13/17 09:35 MPV 9.4 fl (7.5-11.1) 08/13/17 09:35 CMP Sodium 152 mmol/L (136-145) H 08/13/17 05:35 Potassium 3.9 mmol/L (3.5-5.1) 08/13/17 05:35 Chloride 117 mmol/L (98-107) H 08/13/17 05:35 Carbon Dioxide 25 mmol/L (21-32) 08/13/17 05:35 Anion Gap 10 (8-16) 08/13/17 05:35 BUN 52 mg/dL (7-18) H 08/13/17 05:35 Creatinine 0.6 mg/dL (0.7-1.3) L 08/13/17 05:35 Creat Clearance w eGFR > 60 (>60) 08/13/17 05:35 Calcium 7.7 mg/dL (8.5-10.1) L 08/13/17 05:35 Total Bilirubin 0.6 mg/dL (0.2-1.0) D 08/13/17 05:35 AST 42 U/L (15-37) H D 08/13/17 05:35 ALT 34 U/L (12-78) D 08/13/17 05:35 Alkaline Phosphatase 59 U/L (45-117) 08/13/17 05:35 Total Protein 5.9 g/dl (6.4-8.2) L 08/13/17 05:35 Albumin 1.4 g/dl (3.4-5.0) L 08/13/17 05:35 Problem List - Problems (1) Microcytic anemia Code(s): D50.9 - IRON DEFICIENCY ANEMIA, UNSPECIFIED (2) Anemia Code(s): D64.9 - ANEMIA, UNSPECIFIED (3) COPD (chronic obstructive pulmonary disease) Code(s): J44.9 - CHRONIC OBSTRUCTIVE PULMONARY DISEASE, UNSPECIFIED (4) Fever Code(s): R50.9 - FEVER, UNSPECIFIED (5) Pneumonia Code(s): J18.9 - PNEUMONIA, UNSPECIFIED ORGANISM (6) Sepsis Code(s): A41.9 - SEPSIS, UNSPECIFIED ORGANISM (7) Severe sepsis Code(s): A41.9 - SEPSIS, UNSPECIFIED ORGANISM; R65.20 - SEVERE SEPSIS WITHOUT SEPTIC SHOCK Assessment/Plan Hgb 6 w/o signs of GI blood loss. Keep Hgb above 7 g/dl We will closely monitor for signs of bleeding and promptly intervene should there be the need. Consider adding Protonix 40 mg IV piggyback daily. Daily CBC. Daily stool exams for melena. Aspiration precautions. PEG care as per protocol.
[2017-08-13] MEDS: PANTOPRAZOLE SODIUM 40 MG VIAL IVPUSH SCH (15:08)
--- NOTE | 2017-08-13 16:08 | PN ---
Progress Note, Physician Chief Complaint: on NRB mask sacral wound seen getting iv venofer - Current Medication List Current Medications: Active Medications Acetaminophen (Tylenol Oral Solution -) 650 mg GT Q6H PRN PRN Reason: FEVER Last Admin: 08/12/17 21:43 Dose: 650 mg Albuterol Sulfate (Ventolin 0.083% Nebulizer Soln -) 1 amp NEB Q4H PRN PRN Reason: SHORT OF BREATH/WHEEZING Albuterol/Ipratropium (Duoneb -) 1 amp NEB RQID [facility] Last Admin: 08/13/17 11:46 Dose: 1 amp Collagenase (Santyl -) 1 applic TP BID [facility] Last Admin: 08/13/17 10:47 Dose: 1 applic Azithromycin 500 mg/ Dextrose 250 mls @ 250 mls/hr IVPB DAILY [facility] Last Admin: 08/13/17 11:52 Dose: 250 mls/hr Vancomycin HCl 1,000 mg/ (Dextrose) 250 mls @ 166.667 mls/hr IVPB DAILY@0700 [facility] Last Admin: 08/13/17 06:30 Dose: 166.667 mls/hr Piperacillin Sod/Tazobactam (Sod 4.5 gm/ Dextrose) 100 mls @ 200 mls/hr IVPB Q8H-IV [facility] Last Admin: 08/13/17 10:47 Dose: 200 mls/hr Dextrose/Sodium Chloride (D5-1/3ns -) 500 mls @ 75 mls/hr IV ASDIR [facility] Insulin Aspart (Novolog Vial Sliding Scale -) 1 vial SQ Q6HPO [facility] PRN Reason: Protocol Last Admin: 08/13/17 12:00 Dose: Not Given Lactobacillus Acidophilus (Bacid -) 1 tab GT DAILY [facility] Last Admin: 08/13/17 10:47 Dose: 1 tab Methylprednisolone Sodium Succinate (Solu-Medrol -) 40 mg IVPUSH Q6H-IV [facility] Last Admin: 08/13/17 15:07 Dose: 40 mg Morphine Sulfate (Morphine Injection -) 2 mg IVPUSH Q2H PRN PRN Reason: PAIN LEVEL 1-5 Pantoprazole Sodium (Protonix Iv) 40 mg IVPUSH DAILY [facility] Last Admin: 08/13/17 15:08 Dose: 40 mg Valproate Sodium (Depakene -) 250 mg GT BID [facility] Last Admin: 08/13/17 10:47 Dose: 250 mg - Objective Vital Signs: Vital Signs Temperature 98.7 F 08/13/17 15:08 Pulse Rate 99 H 08/13/17 15:08 Respiratory Rate 20 08/13/17 15:08 Blood Pressure 97/54 08/13/17 15:08 O2 Sat by Pulse Oximetry (%) 97 08/12/17 21:00 Constitutional: Yes: Calm Cardiovascular: Yes: Regular Rate and Rhythm, S1, S2 Respiratory: Yes: Rhonchi, Other (on NRB) Gastrointestinal: Yes: Normal Bowel Sounds, Soft, Other (g tube) Edema: No Wound/Incision: Yes: Other (lower back wound seen) Labs: CBC, BMP 08/13/17 09:35 08/13/17 05:35 INR, PTT INR 1.89 (0.82-1.09) H 08/12/17 03:43 Problem List - Problems (1) Acute respiratory failure with hypoxia Assessment/Plan: NRB abx bronchodilators steroids Code(s): J96.01 - ACUTE RESPIRATORY FAILURE WITH HYPOXIA (2) Anemia Assessment/Plan: jehovah witness getting iv venofer heme,gi on case no PRBC Code(s): D64.9 - ANEMIA, UNSPECIFIED (3) Hypernatremia Assessment/Plan: hypotonic fluids renal on board Code(s): E87.0 - HYPEROSMOLALITY AND HYPERNATREMIA (4) Hydronephrosis Assessment/Plan: urology evaluation Code(s): N13.30 - UNSPECIFIED HYDRONEPHROSIS (5) Back wound Assessment/Plan: frequent turning off load wound care consult collagenase Code(s): S21.209A - UNSP OPN WND UNSP BK WL OF THORAX W/O PENET THOR CAV, INIT Assessment/Plan DNR/DNI jehovah witness
--- NOTE | 2017-08-13 17:20 | PN ---
Progress Note (short form) - Note Progress Note: NAD still with NRB mask Vital Signs Period Temp Pulse Resp BP Sys/Jules Pulse Ox Last 24 Hr 97.7 F-100.4 F 99-135 20-22 80-140/50-67 97-100 cor-rrr lungs bilateral rhonchi abd soft,nt ext contracted CBC, BMP 08/13/17 09:35 08/13/17 05:35 Microbiology 08/12/17 03:46 Urine - Urine - Catheterized Urine Culture - Final 08/12/17 04:45 Blood - Peripheral Venous Blood Culture - Preliminary NO GROWTH OBTAINED AFTER 24 HOURS, INCUBATION TO CONTINUE FOR 4 DAYS. 08/12/17 03:43 Blood - Peripheral Venous Blood Culture - Preliminary NO GROWTH OBTAINED AFTER 24 HOURS, INCUBATION TO CONTINUE FOR 4 DAYS. 08/12/17 06:00 Stool Clostridium difficile Antigen (MIGUEL) - Final 08/12/17 06:00 Stool Clostridium difficile Toxin Assay - Final 08/12/17 03:57 Nasopharyngeal Swab Influenza Types A,B Antigen (MIGUEL) - Final 08/12/17 03:57 Nasopharyngeal Swab - Final a/p pneumonia impending respiratory failure sepsis hypotension anemia continue vancomycin/zosyn/zithromax cultures legionella urinary antigen
--- NOTE | 2017-08-13 17:43 | PN ---
Progress Note (short form) - Note Progress Note: VAscular Surgery Pt seen and examined. Sacral ulcer unstageable. with eschar. Start santyl to area. Pt has diahhrea - please prevent from going on ulcer. offload area. Tima greer DO
[2017-08-13] MEDS ORDERED: CHLORHEXIDINE GLUCONATE 4% CLEANSER FOR DECOLONIZATION TP SCH (22:00)
[2017-08-14] MEDS: INSULIN SLIDING SCALE (NOVOLOG) 1 VIAL SQ SCH ×4 (00:28→17:05)
[2017-08-14] MEDS: PIPERACILLIN/TAZOB 4.5 GM 4.5 GM in DEXTROSE 5%-WATER - 100 ML IVPB SCH ×3 (01:59→17:04)
[2017-08-14] MEDS: methylPREDNISolone NA SUCC 40 MG/1 ML VIAL IVPUSH SCH ×4 (03:30→22:33)
[2017-08-14] MEDS ORDERED: PT OWN MED DRAWER 7, Y5N ONE ×4 (05:52→16:16)
[2017-08-14] MEDS: VANCOMYCIN 1,000 MG in DEXTROSE 5%-WATER - 250 ML IVPB SCH (06:04)
[2017-08-14 07:24] LABS: ALBUMIN 1.4 g/dl (3.4-5.0); ANION GAP 7 (8-16); BLOOD UREA NITROGEN 37 mg/dL (7-18); CALCIUM 7.9 mg/dL (8.5-10.1); CHLORIDE 116 mmol/L (98-107); CO2 28 mmol/L (21-32); GLUCOSE,RANDOM 128 mg/dL (74-106); POTASSIUM 3.5 mmol/L (3.5-5.1); SGOT/AST 28 U/L (15-37); SGPT/ALT 28 U/L (12-78); SODIUM 151 mmol/L (136-145)
[2017-08-14 07:26] LABS: ALK PHOS 53 U/L (45-117); BILIRUBIN,TOTAL 0.3 mg/dL (0.2-1.0); CREATININE 0.5 mg/dL (0.7-1.3); TOT PROT 5.7 g/dl (6.4-8.2)
[2017-08-14] MEDS: ALBUTEROL SO4 2.5/IPRATROPIUM 0.5 INH SOL 3 ML VIAL.NEB. NEB SCH ×4 (08:08→20:54)
[2017-08-14 08:11] LABS: HEMATOCRIT 20.2 % (35.4-49); MCHC 29.3 g/dl (32.0-35.9); MEAN CELL VOLUME 85.3 fl (80-96); MEAN PLT VOLUME 9.6 fl (7.5-11.1); PLATELET COUNT 272 K/MM3 (134-434); RBC 2.37 M/mm3 (4.00-5.60); RDW 18.7 % (11.9-15.9); WHITE BLOOD COUNT 11.9 K/mm3 (4.0-10.0)
[2017-08-14 09:03] LABS: HEMOGLOBIN 5.9 GM/dL (11.7-16.9)
[2017-08-14] MEDS ORDERED: IRON SUCROSE INJECTION 100 MG in SODIUM CHLORIDE 95 ML IVPB ONE (10:00)
[2017-08-14] MEDS ORDERED: FOLIC ACID 1 MG TABLET (FP) PO SCH (10:00)
[2017-08-14] MEDS: MULTIVITAMINS (DAILY MVI) TABLET (FP) PO SCH (10:12)
[2017-08-14] MEDS: LACTOBACILLUS ACIDOPHILUS 1 EACH TAB (FP) GT SCH (10:12)
[2017-08-14] MEDS: PANTOPRAZOLE SODIUM 40 MG VIAL IVPUSH SCH (10:13)
[2017-08-14] MEDS: VALPROATE SODIUM 250 MG/5 ML UNIT DOSE CUP GT SCH ×2 (10:13→22:33)
--- NOTE | 2017-08-14 10:29 | CON.GU ---
Consult Consult Specialty:: Referred by:: renal Reason for Consultation:: hydronephrosis - History of Present Illness Chief Complaint: hydronephrosis History of Present Illness: 77 year old male with findings of mild bilateral hydronephrosis. Patient is unable to give any history. 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: Yes: Dementia, Seizure Cardio/Vascular: Yes: HTN Gastrointestinal: Yes: Other (peg) Renal/: Yes: Renal Inusuff Endocrine: Yes: Diabetes Mellitus - Past Surgical History Additional Surgical History: peg - Smoking History Smoking history: Unknown if ever smoked Home Medications - Allergies Allergies/Adverse Reactions: Allergies Allergy/AdvReac Type Severity Reaction Status Date / Time lithium Allergy Verified 08/12/17 03:34 - Home Medications Home Medications: Ambulatory Orders Acetaminophen [Tylenol] 650 mg GT ONCE 08/12/17 Albuterol 0.083% Nebulizer Bela [Ventolin 0.083% Nebulizer Soln -] 1 amp NEB TID PRN 08/12/17 Aspirin 81 mg GT DAILY 08/12/17 Carvedilol 6.25 mg GT BID 08/12/17 Doxazosin Mesylate [Cardura] 1 mg GT DAILY 08/12/17 Fosinopril Sodium 10 mg GT DAILY 08/12/17 Ipratropium [place] 0.2 mg IH QID 08/12/17 L. Acidophilus/Pectin, [place] [Acidophilus Capsule] 1 each GT DAILY 08/12/17 Magnesium Hydroxide [Milk of Magnesia] 30 ml GT PRN 08/12/17 Metformin HCl 500 mg GT DAILY 08/12/17 Rivaroxaban [Xarelto -] 15 mg GT DAILY 08/12/17 Sennosides [Senna] 2 tab GT HS 08/12/17 Valproate Sodium Liquid [Depakene] 250 mg GT BID 08/12/17 Review of Systems - Review of Systems Genitourinary: reports: No Symptoms Physical Exam- Vital Signs: Vital Signs Temperature 97.2 F L 08/14/17 05:49 Pulse Rate 97 H 08/14/17 05:49 Respiratory Rate 18 08/14/17 05:49 Blood Pressure 110/68 08/14/17 05:49 O2 Sat by Pulse Oximetry (%) 100 08/13/17 09:00 Renal/: No: Bladder Distention, CVA Tenderness - Left, CVA Tenderness - Right , [place] Present Labs: CBC, BMP 08/14/17 07:30 08/14/17 05:35 Imaging - Results Ultrasound: Report Reviewed Problem List - Problems (1) Hydronephrosis Assessment/Plan: patient with mild hydronephrosis on US of unknown etiology. If clincally warranted, a non contrast CT scan of the abdomen and pelvis might elucidate the reason and suggest corrective action Code(s): N13.30 - UNSPECIFIED HYDRONEPHROSIS
[2017-08-14] MEDS: COLLAGENASE CLOSTRIDIUM HIST. 30 GRAMS TUBE TP SCH ×2 (10:38→22:34)
[2017-08-14] MEDS: ASCORBIC ACID 250 MG TABLET (FP) PO SCH (10:55)
[2017-08-14] MEDS: AZITHROMYCIN IVPB 500 MG in DEXTROSE 5%-WATER - 250 ML IVPB SCH (10:55)
--- NOTE | 2017-08-14 13:19 | PN ---
Progress Note, Physician History of Present Illness: Pt seen and examined at bedside. He is more awake and interactive than he was yesterday. - Current Medication List Current Medications: Active Medications Acetaminophen (Tylenol Oral Solution -) 650 mg GT Q6H PRN PRN Reason: FEVER Last Admin: 08/12/17 21:43 Dose: 650 mg Albuterol Sulfate (Ventolin 0.083% Nebulizer Soln -) 1 amp NEB Q4H PRN PRN Reason: SHORT OF BREATH/WHEEZING Albuterol/Ipratropium (Duoneb -) 1 amp NEB RQID [facility] Last Admin: 08/14/17 11:20 Dose: 1 amp Amino Acids (Prosource No Carb Liquid Pkt) 30 ml PO BID@0800,1730 [facility] Ascorbic Acid (Vitamin C -) 250 mg PO DAILY [facility] Last Admin: 08/14/17 10:55 Dose: 250 mg Collagenase (Santyl -) 1 applic TP BID [facility] Last Admin: 08/14/17 10:38 Dose: 1 applic Folic Acid (Folic Acid -) 1 mg PO DAILY [facility] Last Admin: 08/14/17 10:12 Dose: 1 mg Azithromycin 500 mg/ Dextrose 250 mls @ 250 mls/hr IVPB DAILY [facility] Last Admin: 08/14/17 10:55 Dose: 250 mls/hr Vancomycin HCl 1,000 mg/ (Dextrose) 250 mls @ 166.667 mls/hr IVPB DAILY@0700 [facility] Last Admin: 08/14/17 06:04 Dose: 166.667 mls/hr Piperacillin Sod/Tazobactam (Sod 4.5 gm/ Dextrose) 100 mls @ 200 mls/hr IVPB Q8H-IV [facility] Last Admin: 08/14/17 10:14 Dose: 200 mls/hr Dextrose/Sodium Chloride (D5-1/3ns -) 500 mls @ 75 mls/hr IV ASDIR [facility] Last Admin: 08/13/17 22:28 Dose: 75 mls/hr Insulin Aspart (Novolog Vial Sliding Scale -) 1 vial SQ Q6HPO [facility] PRN Reason: Protocol Last Admin: 08/14/17 12:07 Dose: Not Given Lactobacillus Acidophilus (Bacid -) 1 tab GT DAILY [facility] Last Admin: 08/14/17 10:12 Dose: 1 tab Methylprednisolone Sodium Succinate (Solu-Medrol -) 40 mg IVPUSH Q6H-IV [facility] Last Admin: 08/14/17 10:12 Dose: 40 mg Morphine Sulfate (Morphine Injection -) 2 mg IVPUSH Q2H PRN PRN Reason: PAIN LEVEL 1-5 Multivitamins/Minerals/Vitamin C (Tab-A-Vit -) 1 tab PO DAILY [facility] Last Admin: 08/14/17 10:12 Dose: 1 tab Pantoprazole Sodium (Protonix Iv) 40 mg IVPUSH DAILY [facility] Last Admin: 08/14/17 10:13 Dose: 40 mg Valproate Sodium (Depakene -) 250 mg GT BID [facility] Last Admin: 08/14/17 10:13 Dose: 250 mg - Objective Vital Signs: Vital Signs Temperature 97.2 F L 08/14/17 05:49 Pulse Rate 97 H 08/14/17 05:49 Respiratory Rate 18 08/14/17 05:49 Blood Pressure 110/68 08/14/17 05:49 O2 Sat by Pulse Oximetry (%) 100 08/13/17 09:00 Constitutional: Yes: Calm Eyes: Yes: Conjunctiva Clear HENT: Yes: Atraumatic Neck: Yes: Supple Cardiovascular: Yes: S1, S2 Respiratory: Yes: On Nasal O2 Gastrointestinal: Yes: Soft Genitourinary: Yes: Incontinence Musculoskeletal: Yes: Muscle Weakness Edema: No Neurological: Yes: Pre-Existing Deficit Labs: CBC, BMP 08/14/17 07:30 08/14/17 05:35 INR, PTT INR 1.89 (0.82-1.09) H 08/12/17 03:43 Problem List - Problems (1) Anemia Code(s): D64.9 - ANEMIA, UNSPECIFIED (2) COPD (chronic obstructive pulmonary disease) Code(s): J44.9 - CHRONIC OBSTRUCTIVE PULMONARY DISEASE, UNSPECIFIED (3) Fever Code(s): R50.9 - FEVER, UNSPECIFIED (4) Hypernatremia Code(s): E87.0 - HYPEROSMOLALITY AND HYPERNATREMIA (5) Pneumonia Code(s): J18.9 - PNEUMONIA, UNSPECIFIED ORGANISM (6) Sepsis Code(s): A41.9 - SEPSIS, UNSPECIFIED ORGANISM Assessment/Plan Current Medications Generic Name Dose Route Start Last Admin Trade Name Freq PRN Reason Stop Dose Admin Acetaminophen 650 mg 08/12/17 20:11 08/12/17 21:43 Tylenol Oral Solution - GT 650 mg Q6H PRN Administration FEVER Albuterol Sulfate 1 amp 08/12/17 23:43 Ventolin 0.083% Nebulizer Soln - NEB Q4H PRN SHORT OF BREATH/WHEEZING Albuterol/Ipratropium 1 amp 08/13/17 08:00 08/14/17 11:20 Duoneb - NEB 1 amp RQID [facility] Administration Amino Acids 30 ml 08/14/17 17:30 Prosource No Carb Liquid Pkt PO BID@0800,1730 [facility] Ascorbic Acid 250 mg 08/14/17 10:00 08/14/17 10:55 Vitamin C - PO 250 mg DAILY [facility] Administration Collagenase 1 applic 08/13/17 10:00 08/14/17 10:38 Santyl - TP 1 applic BID [facility] Administration Folic Acid 1 mg 08/14/17 10:00 08/14/17 10:12 Folic Acid - PO 1 mg DAILY [facility] Administration Azithromycin 500 mg/ Dextrose 250 mls @ 250 mls/hr 08/13/17 10:00 08/14/17 10 :55 IVPB 250 mls/hr DAILY [facility] Administration Vancomycin HCl 1,000 mg/ 250 mls @ 166.667 mls/hr 08/13/17 07:00 08/14/17 06: 04 Dextrose IVPB 166.667 mls/hr DAILY@0700 [facility] Administration Piperacillin Sod/Tazobactam 100 mls @ 200 mls/hr 08/12/17 13:15 08/14/17 10: 14 Sod 4.5 gm/ Dextrose IVPB 200 mls/hr Q8H-IV [facility] Administration Dextrose/Sodium Chloride 500 mls @ 75 mls/hr 08/13/17 14:00 08/13/17 22:28 D5-1/3ns - IV 75 mls/hr ASDIR [facility] Administration Insulin Aspart 1 vial 08/13/17 00:00 08/14/17 12:07 Novolog Vial Sliding Scale - SQ Not Given Q6HPO [facility] Protocol Lactobacillus Acidophilus 1 tab 08/13/17 10:00 08/14/17 10:12 Bacid - GT 1 tab DAILY [facility] Administration Methylprednisolone Sodium Succinate 40 mg 08/13/17 03:00 08/14/17 10:12 Solu-Medrol - IVPUSH 40 mg Q6H-IV [facility] Administration Morphine Sulfate 2 mg 08/12/17 15:08 Morphine Injection - IVPUSH Q2H PRN PAIN LEVEL 1-5 Multivitamins/Minerals/Vitamin C 1 tab 08/14/17 10:00 08/14/17 10:12 Tab-A-Vit - PO 1 tab DAILY [facility] Administration Pantoprazole Sodium 40 mg 08/13/17 14:00 08/14/17 10:13 Protonix Iv IVPUSH 40 mg DAILY [facility] Administration Valproate Sodium 250 mg 08/13/17 10:00 08/14/17 10:13 Depakene - GT 250 mg BID [facility] Administration Impression 1. NEAL 2. hypernatremia 3. PNA 4. dysphagia 5. DM 6. HTN 7. hypoxia 8. mild right hydro Plan - can change fluids to d5w - repeat labs in am - transfuse prbc - urology input appreciated - cont free water with feeds - monitor bp - cont abx - will follow Dr Dorsey
--- NOTE | 2017-08-14 15:08 | PN ---
Progress Note (short form) - Note Progress Note: NAD NO DIARRHEA per nursing staff on nasal canulla, alert! Vital Signs Period Temp Pulse Resp BP Sys/Jules Pulse Ox Last 24 Hr 97.2 F-98.8 F 92-109 16-20 97-124/54-83 cor-rrr lungs rare rhonchi abd soft, _GT ext contracted sacral ulcer- unstageable CBC, BMP 08/14/17 07:30 08/14/17 05:35 Microbiology 08/12/17 20:20 Urine For Antigen Detection Legionella Antigen - Final 08/12/17 20:20 Urine For Antigen Detection Streptococcus pneumoniae Antigen (M - Final 08/12/17 04:45 Blood - Peripheral Venous Blood Culture - Preliminary NO GROWTH OBTAINED AFTER 48 HOURS, INCUBATION TO CONTINUE FOR 3 DAYS. 08/12/17 03:43 Blood - Peripheral Venous Blood Culture - Preliminary NO GROWTH OBTAINED AFTER 48 HOURS, INCUBATION TO CONTINUE FOR 3 DAYS. 08/12/17 03:46 Urine - Urine - Catheterized Urine Culture - Final 08/12/17 06:00 Stool Clostridium difficile Antigen (MIGUEL) - Final 08/12/17 06:00 Stool Clostridium difficile Toxin Assay - Final 08/12/17 03:57 Nasopharyngeal Swab Influenza Types A,B Antigen (MIGUEL) - Final 08/12/17 03:57 Nasopharyngeal Swab - Final a/p pneumonia-improved antibiotic day #3 hypotension resolved anemia- refuses transfusion de-escalate antibiotics to zosyn alone legionella antigen is negative
--- NOTE | 2017-08-14 16:20 | PN ---
Progress Note, Physician History of Present Illness: Respiratory status improved. Not in distress. No signs of GI bleeding. Awake and alert. - Current Medication List Current Medications: Active Medications Acetaminophen (Tylenol Oral Solution -) 650 mg GT Q6H PRN PRN Reason: FEVER Last Admin: 08/12/17 21:43 Dose: 650 mg Albuterol Sulfate (Ventolin 0.083% Nebulizer Soln -) 1 amp NEB Q4H PRN PRN Reason: SHORT OF BREATH/WHEEZING Albuterol/Ipratropium (Duoneb -) 1 amp NEB RQID [facility] Last Admin: 08/14/17 11:20 Dose: 1 amp Amino Acids (Prosource No Carb Liquid Pkt) 30 ml PO BID@0800,1730 [facility] Ascorbic Acid (Vitamin C -) 250 mg PO DAILY [facility] Last Admin: 08/14/17 10:55 Dose: 250 mg Collagenase (Santyl -) 1 applic TP BID [facility] Last Admin: 08/14/17 10:38 Dose: 1 applic Folic Acid (Folic Acid -) 1 mg PO DAILY [facility] Last Admin: 08/14/17 10:12 Dose: 1 mg Piperacillin Sod/Tazobactam (Sod 4.5 gm/ Dextrose) 100 mls @ 200 mls/hr IVPB Q8H-IV [facility] Last Admin: 08/14/17 10:14 Dose: 200 mls/hr Potassium Chloride 20 meq/ (Dextrose) 1,010 mls @ 65 mls/hr IVPB Q15H [facility] Insulin Aspart (Novolog Vial Sliding Scale -) 1 vial SQ Q6HPO [facility] PRN Reason: Protocol Last Admin: 08/14/17 12:07 Dose: Not Given Lactobacillus Acidophilus (Bacid -) 1 tab GT DAILY [facility] Last Admin: 08/14/17 10:12 Dose: 1 tab Methylprednisolone Sodium Succinate (Solu-Medrol -) 40 mg IVPUSH Q6H-IV [facility] Last Admin: 08/14/17 14:49 Dose: 40 mg Morphine Sulfate (Morphine Injection -) 2 mg IVPUSH Q2H PRN PRN Reason: PAIN LEVEL 1-5 Multivitamins/Minerals/Vitamin C (Tab-A-Vit -) 1 tab PO DAILY [facility] Last Admin: 08/14/17 10:12 Dose: 1 tab Pantoprazole Sodium (Protonix Iv) 40 mg IVPUSH DAILY [facility] Last Admin: 08/14/17 10:13 Dose: 40 mg Valproate Sodium (Depakene -) 250 mg GT BID [facility] Last Admin: 08/14/17 10:13 Dose: 250 mg - Objective Vital Signs: Vital Signs Temperature 98.3 F 08/14/17 14:33 Pulse Rate 98 H 08/14/17 14:33 Respiratory Rate 18 08/14/17 14:33 Blood Pressure 124/83 08/14/17 14:33 O2 Sat by Pulse Oximetry (%) 100 08/13/17 09:00 Constitutional: Yes: No Distress, Calm Gastrointestinal: Yes: Soft. No: Distention, Melena, Rectal Bleeding, Tenderness, Rebound Labs: CBC, BMP 08/14/17 07:30 08/14/17 05:35 INR, PTT INR 1.89 (0.82-1.09) H 08/12/17 03:43 Problem List - Problems (1) Microcytic anemia Code(s): D50.9 - IRON DEFICIENCY ANEMIA, UNSPECIFIED (2) Anemia Code(s): D64.9 - ANEMIA, UNSPECIFIED (3) COPD (chronic obstructive pulmonary disease) Code(s): J44.9 - CHRONIC OBSTRUCTIVE PULMONARY DISEASE, UNSPECIFIED (4) Fever Code(s): R50.9 - FEVER, UNSPECIFIED (5) Pneumonia Code(s): J18.9 - PNEUMONIA, UNSPECIFIED ORGANISM (6) Sepsis Code(s): A41.9 - SEPSIS, UNSPECIFIED ORGANISM (7) Severe sepsis Code(s): A41.9 - SEPSIS, UNSPECIFIED ORGANISM; R65.20 - SEVERE SEPSIS WITHOUT SEPTIC SHOCK Assessment/Plan Cannot receive blood products for jew reasons. No signs of GI bleeding. Consider adding Protonix 40 mg IV piggyback daily. Monitor got sings bleeding Daily CBC. Daily stool exams for melena. Aspiration precautions. PEG care as per protocol.
[2017-08-14] MEDS: POTASSIUM CHLORIDE 20 MEQ in DEXTROSE 5%-WATER - 1,000 ML IVPB SCH (16:25)
[2017-08-14] MEDS: AMINO ACIDS/PROTEIN HYDROLYS 30 ML LIQUID.PKT PO SCH (16:32)
--- NOTE | 2017-08-14 16:40 | PN ---
Progress Note, Physician History of Present Illness: pulmonary more awake,non-verbal,comfortable on - Current Medication List Current Medications: Active Medications Acetaminophen (Tylenol Oral Solution -) 650 mg GT Q6H PRN PRN Reason: FEVER Last Admin: 08/12/17 21:43 Dose: 650 mg Albuterol Sulfate (Ventolin 0.083% Nebulizer Soln -) 1 amp NEB Q4H PRN PRN Reason: SHORT OF BREATH/WHEEZING Albuterol/Ipratropium (Duoneb -) 1 amp NEB RQID [facility] Last Admin: 08/14/17 11:20 Dose: 1 amp Amino Acids (Prosource No Carb Liquid Pkt) 30 ml PO BID@0800,1730 [facility] Last Admin: 08/14/17 16:32 Dose: 30 ml Ascorbic Acid (Vitamin C -) 250 mg PO DAILY [facility] Last Admin: 08/14/17 10:55 Dose: 250 mg Collagenase (Santyl -) 1 applic TP BID [facility] Last Admin: 08/14/17 10:38 Dose: 1 applic Folic Acid (Folic Acid -) 1 mg PO DAILY [facility] Last Admin: 08/14/17 10:12 Dose: 1 mg Piperacillin Sod/Tazobactam (Sod 4.5 gm/ Dextrose) 100 mls @ 200 mls/hr IVPB Q8H-IV [facility] Last Admin: 08/14/17 10:14 Dose: 200 mls/hr Potassium Chloride 20 meq/ (Dextrose) 1,010 mls @ 65 mls/hr IVPB Q15H [facility] Last Admin: 08/14/17 16:25 Dose: 65 mls/hr Insulin Aspart (Novolog Vial Sliding Scale -) 1 vial SQ Q6HPO [facility] PRN Reason: Protocol Last Admin: 08/14/17 12:07 Dose: Not Given Lactobacillus Acidophilus (Bacid -) 1 tab GT DAILY [facility] Last Admin: 08/14/17 10:12 Dose: 1 tab Methylprednisolone Sodium Succinate (Solu-Medrol -) 40 mg IVPUSH Q6H-IV [facility] Last Admin: 08/14/17 14:49 Dose: 40 mg Morphine Sulfate (Morphine Injection -) 2 mg IVPUSH Q2H PRN PRN Reason: PAIN LEVEL 1-5 Multivitamins/Minerals/Vitamin C (Tab-A-Vit -) 1 tab PO DAILY [facility] Last Admin: 08/14/17 10:12 Dose: 1 tab Pantoprazole Sodium (Protonix Iv) 40 mg IVPUSH DAILY [facility] Last Admin: 08/14/17 10:13 Dose: 40 mg Valproate Sodium (Depakene -) 250 mg GT BID [facility] Last Admin: 08/14/17 10:13 Dose: 250 mg - Objective Vital Signs: Vital Signs Temperature 98.3 F 08/14/17 14:33 Pulse Rate 98 H 08/14/17 14:33 Respiratory Rate 18 08/14/17 14:33 Blood Pressure 124/83 08/14/17 14:33 O2 Sat by Pulse Oximetry (%) 100 08/13/17 09:00 Constitutional: Yes: Calm, Thin Eyes: Yes: WNL HENT: Yes: WNL Neck: Yes: WNL Cardiovascular: Yes: Pulse Irregular, S1, S2 Respiratory: Yes: Rhonchi (scattered rhonchi) Gastrointestinal: Yes: Normal Bowel Sounds, Soft Extremities: Yes: WNL Edema: No Labs: CBC, BMP 08/14/17 07:30 08/14/17 05:35 INR, PTT INR 1.89 (0.82-1.09) H 08/12/17 03:43 Assessment/Plan Problem List - Problems (1) Acute respiratory failure with hypoxia Code(s): J96.01 - ACUTE RESPIRATORY FAILURE WITH HYPOXIA (2) Pneumonia Code(s): J18.9 - PNEUMONIA, UNSPECIFIED ORGANISM (3) Severe sepsis Code(s): A41.9 - SEPSIS, UNSPECIFIED ORGANISM; R65.20 - SEVERE SEPSIS WITHOUT SEPTIC SHOCK (4) Lactic acidosis Code(s): E87.2 - ACIDOSIS (5) Hypernatremia Code(s): E87.0 - HYPEROSMOLALITY AND HYPERNATREMIA (6) CAD (coronary artery disease) Code(s): I25.10 - ATHSCL HEART DISEASE OF [place] CORONARY ARTERY W/O ANG PCTRS (7) Atrial fibrillation Code(s): I48.91 - UNSPECIFIED ATRIAL FIBRILLATION (8) Bipolar disorder Code(s): F31.9 - BIPOLAR DISORDER, UNSPECIFIED Assessment/Plan Acute Hypoxic Respiratory Failure Pneumonia Severe Sepsis Lactic Acidosis Anemia Atrial Fibrillation with RVR Bipolar Disorder HTN DM Seizure Disorder - ABX coverage as per ID - inhaled bronchodilators - O2 to keep SpO2 >90% - aspiration precautions - monitor H/H - rate control - hold anticoagulation - DNR/DNI Dr Quigley
--- NOTE | 2017-08-14 17:05 | PN ---
Progress Note, Physician - Current Medication List Current Medications: Active Medications Acetaminophen (Tylenol Oral Solution -) 650 mg GT Q6H PRN PRN Reason: FEVER Last Admin: 08/12/17 21:43 Dose: 650 mg Albuterol Sulfate (Ventolin 0.083% Nebulizer Soln -) 1 amp NEB Q4H PRN PRN Reason: SHORT OF BREATH/WHEEZING Albuterol/Ipratropium (Duoneb -) 1 amp NEB RQID [facility] Last Admin: 08/14/17 11:20 Dose: 1 amp Amino Acids (Prosource No Carb Liquid Pkt) 30 ml PO BID@0800,1730 [facility] Last Admin: 08/14/17 16:32 Dose: 30 ml Ascorbic Acid (Vitamin C -) 250 mg PO DAILY [facility] Last Admin: 08/14/17 10:55 Dose: 250 mg Collagenase (Santyl -) 1 applic TP BID [facility] Last Admin: 08/14/17 10:38 Dose: 1 applic Folic Acid (Folic Acid -) 1 mg PO DAILY [facility] Last Admin: 08/14/17 10:12 Dose: 1 mg Piperacillin Sod/Tazobactam (Sod 4.5 gm/ Dextrose) 100 mls @ 200 mls/hr IVPB Q8H-IV [facility] Last Admin: 08/14/17 10:14 Dose: 200 mls/hr Potassium Chloride 20 meq/ (Dextrose) 1,010 mls @ 65 mls/hr IVPB Q15H [facility] Last Admin: 08/14/17 16:25 Dose: 65 mls/hr Insulin Aspart (Novolog Vial Sliding Scale -) 1 vial SQ Q6HPO [facility] PRN Reason: Protocol Last Admin: 08/14/17 12:07 Dose: Not Given Lactobacillus Acidophilus (Bacid -) 1 tab GT DAILY [facility] Last Admin: 08/14/17 10:12 Dose: 1 tab Methylprednisolone Sodium Succinate (Solu-Medrol -) 40 mg IVPUSH Q6H-IV [facility] Last Admin: 08/14/17 14:49 Dose: 40 mg Morphine Sulfate (Morphine Injection -) 2 mg IVPUSH Q2H PRN PRN Reason: PAIN LEVEL 1-5 Multivitamins/Minerals/Vitamin C (Tab-A-Vit -) 1 tab PO DAILY [facility] Last Admin: 08/14/17 10:12 Dose: 1 tab Pantoprazole Sodium (Protonix Iv) 40 mg IVPUSH DAILY [facility] Last Admin: 08/14/17 10:13 Dose: 40 mg Valproate Sodium (Depakene -) 250 mg GT BID [facility] Last Admin: 08/14/17 10:13 Dose: 250 mg - Objective Vital Signs: Vital Signs Temperature 98.3 F 08/14/17 14:33 Pulse Rate 98 H 08/14/17 14:33 Respiratory Rate 18 08/14/17 14:33 Blood Pressure 124/83 08/14/17 14:33 O2 Sat by Pulse Oximetry (%) 100 08/13/17 09:00 Cardiovascular: Yes: S1, S2 Respiratory: Yes: Diminished, Rhonchi Gastrointestinal: Yes: Normal Bowel Sounds, Soft Labs: CBC, BMP 08/14/17 07:30 08/14/17 05:35 INR, PTT INR 1.89 (0.82-1.09) H 08/12/17 03:43 Problem List - Problems (1) Severe sepsis Code(s): A41.9 - SEPSIS, UNSPECIFIED ORGANISM; R65.20 - SEVERE SEPSIS WITHOUT SEPTIC SHOCK (2) COPD (chronic obstructive pulmonary disease) Code(s): J44.9 - CHRONIC OBSTRUCTIVE PULMONARY DISEASE, UNSPECIFIED (3) Pneumonia Code(s): J18.9 - PNEUMONIA, UNSPECIFIED ORGANISM (4) Anemia Code(s): D64.9 - ANEMIA, UNSPECIFIED (5) Hypernatremia Code(s): E87.0 - HYPEROSMOLALITY AND HYPERNATREMIA Assessment/Plan - Problems (1) Acute respiratory failure with hypoxia Assessment/Plan: NRB abx bronchodilators steroids Code(s): J96.01 - ACUTE RESPIRATORY FAILURE WITH HYPOXIA (2) Anemia Assessment/Plan: jehovah witness getting iv venofer heme,gi on case no PRBC Code(s): D64.9 - ANEMIA, UNSPECIFIED (3) Hypernatremia Assessment/Plan: hypotonic fluids renal on board Code(s): E87.0 - HYPEROSMOLALITY AND HYPERNATREMIA (4) Hydronephrosis Assessment/Plan: urology evaluation Code(s): N13.30 - UNSPECIFIED HYDRONEPHROSIS (5) Back wound Assessment/Plan: frequent turning off load wound care consult collagenase Code(s): S21.209A - UNSP OPN WND UNSP BK WL OF THORAX W/O PENET THOR CAV, INIT
--- NOTE | 2017-08-14 19:54 | PN ---
Progress Note (short form) - Note Progress Note: PAtient seen and examined comfortable , resting Last Vital Signs Temp Pulse Resp BP Pulse Ox 97.6 F 107 H 20 121/79 100 08/14/17 17:55 08/14/17 17:55 08/14/17 17:55 08/14/17 17:55 08/13/17 09:00 Cor: RSR, No murmurs, No gallops Lungs: Clear to P&A Abd: Soft, Normal bowel sounds, No organomegaly Ext:No significant edema Abnormal Lab Results 08/14/17 08/14/17 05:35 07:30 WBC 11.9 H RBC 2.37 L Hgb 5.9 L* Hct 20.2 L MCH 25.0 L MCHC 29.3 L RDW 18.7 H Sodium 151 H Chloride 116 H Anion Gap 7 L BUN 37 H D Creatinine 0.5 L Random Glucose 128 H D Calcium 7.9 L Total Protein 5.7 L Albumin 1.4 L Home Medication List Medication Instructions Recorded Confirmed Type Acetaminophen [Tylenol] 650 mg GT ONCE 08/12/17 08/12/17 History Albuterol 0.083% Nebulizer Bela 1 amp NEB TID PRN 08/12/17 08/12/17 History [Ventolin 0.083% Nebulizer Soln -] Aspirin 81 mg GT DAILY 08/12/17 08/12/17 History Carvedilol 6.25 mg GT BID 08/12/17 08/12/17 History Doxazosin Mesylate [Cardura] 1 mg GT DAILY 08/12/17 08/12/17 History Fosinopril Sodium 10 mg GT DAILY 08/12/17 08/12/17 History Ipratropium [place] 0.2 mg IH QID 08/12/17 08/12/17 History L. Acidophilus/Pectin, [place] 1 each GT DAILY 08/12/17 08/12/17 History [Acidophilus Capsule] Magnesium Hydroxide [Milk of 30 ml GT PRN 08/12/17 08/12/17 History Magnesia] Metformin HCl 500 mg GT DAILY 08/12/17 08/12/17 History Rivaroxaban [Xarelto -] 15 mg GT DAILY 08/12/17 08/12/17 History Sennosides [Senna] 2 tab GT HS 08/12/17 08/12/17 History Valproate Sodium Liquid [Depakene] 250 mg GT BID 08/12/17 08/12/17 History Active Medications Generic Name Dose Route Start Last Admin Trade Name Freq PRN Reason Stop Dose Admin Acetaminophen 650 mg 08/12/17 20:11 08/12/17 21:43 Tylenol Oral Solution - GT 650 mg Q6H PRN Administration FEVER Albuterol Sulfate 1 amp 08/12/17 23:43 Ventolin 0.083% Nebulizer Soln - NEB Q4H PRN SHORT OF BREATH/WHEEZING Albuterol/Ipratropium 1 amp 08/13/17 08:00 08/14/17 16:35 Duoneb - NEB 1 amp RQID [facility] Administration Amino Acids 30 ml 08/14/17 17:30 08/14/17 16:32 Prosource No Carb Liquid Pkt PO 30 ml BID@0800,1730 [facility] Administration Ascorbic Acid 250 mg 08/14/17 10:00 08/14/17 10:55 Vitamin C - PO 250 mg DAILY [facility] Administration Collagenase 1 applic 08/13/17 10:00 08/14/17 10:38 Santyl - TP 1 applic BID [facility] Administration Folic Acid 1 mg 08/14/17 10:00 08/14/17 10:12 Folic Acid - PO 1 mg DAILY [facility] Administration Piperacillin Sod/Tazobactam 100 mls @ 200 mls/hr 08/12/17 13:15 08/14/17 17: 04 Sod 4.5 gm/ Dextrose IVPB 200 mls/hr Q8H-IV [facility] Administration Potassium Chloride 20 meq/ 1,010 mls @ 65 mls/hr 08/14/17 14:30 08/14/17 16: 25 Dextrose IVPB 65 mls/hr Q15H [facility] Administration Insulin Aspart 1 vial 08/13/17 00:00 08/14/17 17:05 Novolog Vial Sliding Scale - SQ Not Given Q6HPO [facility] Protocol Lactobacillus Acidophilus 1 tab 08/13/17 10:00 08/14/17 10:12 Bacid - GT 1 tab DAILY [facility] Administration Methylprednisolone Sodium Succinate 40 mg 08/13/17 03:00 08/14/17 14:49 Solu-Medrol - IVPUSH 40 mg Q6H-IV [facility] Administration Morphine Sulfate 2 mg 08/12/17 15:08 Morphine Injection - IVPUSH Q2H PRN PAIN LEVEL 1-5 Multivitamins/Minerals/Vitamin C 1 tab 08/14/17 10:00 08/14/17 10:12 Tab-A-Vit - PO 1 tab DAILY [facility] Administration Pantoprazole Sodium 40 mg 08/13/17 14:00 08/14/17 10:13 Protonix Iv IVPUSH 40 mg DAILY [facility] Administration Valproate Sodium 250 mg 08/13/17 10:00 08/14/17 10:13 Depakene - GT 250 mg BID [facility] Administration A/P 77 y/o patient Jehovahs witness, severe anemia, pneumonia Will give iv iron, folic acid, vit. B12, procrit left message to update daughter
[2017-08-14] MEDS ORDERED: EPOETIN ALFA 2,000 UNIT/1 ML VIAL SQ SCH (20:00)
[2017-08-14] MEDS: EPOETIN ALFA 20,000 UNIT/1 ML VIAL SQ SCH (22:33)
[2017-08-15] MEDS: INSULIN SLIDING SCALE (NOVOLOG) 1 VIAL SQ SCH ×4 (01:14→17:08)
[2017-08-15] MEDS: PIPERACILLIN/TAZOB 4.5 GM 4.5 GM in DEXTROSE 5%-WATER - 100 ML IVPB SCH ×3 (01:32→17:09)
[2017-08-15] MEDS: methylPREDNISolone NA SUCC 40 MG/1 ML VIAL IVPUSH SCH ×3 (03:10→15:03)
[2017-08-15] MEDS: POTASSIUM CHLORIDE 20 MEQ in DEXTROSE 5%-WATER - 1,000 ML IVPB SCH (05:52)
[2017-08-15] MEDS: ALBUTEROL SO4 2.5/IPRATROPIUM 0.5 INH SOL 3 ML VIAL.NEB. NEB SCH ×4 (07:15→20:00)
[2017-08-15 08:02] LABS: ALBUMIN 1.5 g/dl (3.4-5.0); ANION GAP 10 (8-16); CHLORIDE 115 mmol/L (98-107); CO2 24 mmol/L (21-32); CREATININE 0.4 mg/dL (0.7-1.3); GLUCOSE,RANDOM 113 mg/dL (74-106); POTASSIUM 4.1 mmol/L (3.5-5.1); SGOT/AST 23 U/L (15-37); SGPT/ALT 23 U/L (12-78); SODIUM 149 mmol/L (136-145)
[2017-08-15 08:17] LABS: ALK PHOS 57 U/L (45-117); BILIRUBIN,TOTAL 0.2 mg/dL (0.2-1.0); BLOOD UREA NITROGEN 29 mg/dL (7-18); CALCIUM 7.9 mg/dL (8.5-10.1); TOT PROT 5.9 g/dl (6.4-8.2)
[2017-08-15] MEDS: PANTOPRAZOLE SODIUM 40 MG VIAL IVPUSH SCH (10:23)
[2017-08-15] MEDS: CYANOCOBALAMIN (VITAMIN B-12) 1000 MCG/1 ML VIAL IM SCH (10:23)
[2017-08-15] MEDS: FOLIC ACID 1 MG TABLET (FP) PO SCH (10:23)
[2017-08-15] MEDS: MULTIVITAMINS (DAILY MVI) TABLET (FP) PO SCH (10:24)
[2017-08-15] MEDS: LACTOBACILLUS ACIDOPHILUS 1 EACH TAB (FP) GT SCH (10:24)
[2017-08-15] MEDS: EPOETIN ALFA 20,000 UNIT/1 ML VIAL SQ SCH (10:24)
[2017-08-15] MEDS: VALPROATE SODIUM 250 MG/5 ML UNIT DOSE CUP GT SCH (10:24)
[2017-08-15] MEDS: COLLAGENASE CLOSTRIDIUM HIST. 30 GRAMS TUBE TP SCH (10:25)
[2017-08-15] MEDS: ASCORBIC ACID 250 MG TABLET (FP) PO SCH (10:25)
[2017-08-15] MEDS: AMINO ACIDS/PROTEIN HYDROLYS 30 ML LIQUID.PKT PO SCH ×2 (10:26→17:08)
[2017-08-15] MEDS ORDERED: IRON SUCROSE INJECTION 100 MG in SODIUM CHLORIDE 95 ML IVPB ONE (10:30)
[2017-08-15 10:57] LABS: MCH 25.5 pg (25.7-33.7); MEAN CELL VOLUME 84.8 fl (80-96); MEAN PLT VOLUME 8.9 fl (7.5-11.1); PLATELET COUNT 294 K/MM3 (134-434); RBC 2.48 M/mm3 (4.00-5.60); RDW 18.3 % (11.9-15.9)
[2017-08-15 11:13] LABS: HEMOGLOBIN 6.3 GM/dL (11.7-16.9)
[2017-08-15 13:10] LABS: ANISOCYTOSIS 2+; MACROCYTOSIS 0; PLATELET ESTIMATE NORMAL
[2017-08-15 13:20] LABS: WHITE BLOOD COUNT 10.6 K/mm3 (4.0-10.0)
--- NOTE | 2017-08-15 14:01 | PN ---
Progress Note (short form) - Note Progress Note: Patient seen and examined on Telemetry. Remains awake in NAD on NC O2. Intake & Output 08/12/17 08/13/17 08/14/17 08/15/17 23:59 23:59 23:59 23:59 Intake Total 2485 1250 1790 Output Total 1175 1300 2400 600 Balance 1310 -50 -2400 1190 Weight 140 lb Last Vital Signs Temp Pulse Resp BP Pulse Ox 97.6 F 88 18 124/82 98 08/15/17 10:00 08/15/17 10:00 08/15/17 10:00 08/15/17 10:00 08/15/17 08:40 Active Medications Acetaminophen (Tylenol Oral Solution -) 650 mg GT Q6H PRN PRN Reason: FEVER Last Admin: 08/12/17 21:43 Dose: 650 mg Albuterol Sulfate (Ventolin 0.083% Nebulizer Soln -) 1 amp NEB Q4H PRN PRN Reason: SHORT OF BREATH/WHEEZING Albuterol/Ipratropium (Duoneb -) 1 amp NEB RQID [facility] Last Admin: 08/15/17 11:10 Dose: Not Given Amino Acids (Prosource No Carb Liquid Pkt) 30 ml PO BID@0800,1730 [facility] Last Admin: 08/15/17 10:26 Dose: 30 ml Ascorbic Acid (Vitamin C -) 250 mg PO DAILY [facility] Last Admin: 08/15/17 10:25 Dose: 250 mg Collagenase (Santyl -) 1 applic TP BID [facility] Last Admin: 08/15/17 10:25 Dose: 1 applic Cyanocobalamin (Vitamin B12 Injection -) 1,000 mcg IM DAILY [facility] Stop: 08/20/17 09:59 Last Admin: 08/15/17 10:23 Dose: 1,000 mcg Epoetin Luis A (Procrit -) 20,000 unit SQ DAILY [facility] Stop: 08/18/17 10:01 Last Admin: 08/15/17 10:24 Dose: 20,000 unit Folic Acid (Folic Acid -) 1 mg PO DAILY [facility] Last Admin: 08/15/17 10:23 Dose: 1 mg Piperacillin Sod/Tazobactam (Sod 4.5 gm/ Dextrose) 100 mls @ 200 mls/hr IVPB Q8H-IV [facility] Last Admin: 08/15/17 10:25 Dose: 200 mls/hr Potassium Chloride 20 meq/ (Dextrose) 1,010 mls @ 65 mls/hr IVPB Q15H [facility] Last Admin: 08/15/17 05:52 Dose: Not Given Insulin Aspart (Novolog Vial Sliding Scale -) 1 vial SQ Q6HPO [facility] PRN Reason: Protocol Last Admin: 08/15/17 12:18 Dose: Not Given Lactobacillus Acidophilus (Bacid -) 1 tab GT DAILY [facility] Last Admin: 08/15/17 10:24 Dose: 1 tab Methylprednisolone Sodium Succinate (Solu-Medrol -) 40 mg IVPUSH Q6H-IV [facility] Last Admin: 08/15/17 10:00 Dose: 40 mg Morphine Sulfate (Morphine Injection -) 2 mg IVPUSH Q2H PRN PRN Reason: PAIN LEVEL 1-5 Multivitamins/Minerals/Vitamin C (Tab-A-Vit -) 1 tab PO DAILY [facility] Last Admin: 08/15/17 10:24 Dose: 1 tab Pantoprazole Sodium (Protonix Iv) 40 mg IVPUSH DAILY [facility] Last Admin: 08/15/17 10:23 Dose: 40 mg Valproate Sodium (Depakene -) 250 mg GT BID [facility] Last Admin: 08/15/17 10:24 Dose: 250 mg Constitutional: Yes: NAD, Confusion Eyes: Yes: Conjunctiva Clear, EOM Intact HENT: Yes: Atraumatic, Normocephalic Neck: Yes: Supple, Trachea Midline Cardiovascular: Yes: Tachycardia Respiratory: Yes: Bilateral Rales, Rhonchi ...Clubbing: No Gastrointestinal: Yes: Normal Bowel Sounds, Soft. No: Tenderness Edema: No Neurological: Yes: Lethargy Labs: Laboratory Results - last 24 hr 08/12/17 08/13/17 08/14/17 06:08 05:35 16:44 WBC Corrected WBC (auto) RBC Hgb Hct MCV MCH MCHC RDW Plt Count MPV Total Counted Neutrophils % Neutrophils % (Manual) Band Neutrophils % Lymphocytes % Lymphocytes % (Manual) Monocytes % (Manual) Eosinophils % (Manual) Basophils % (Manual) Myelocytes % (Man) Metamyelocytes Hypochromia Platelet Estimate Polychromasia Poikilocytosis Anisocytosis Microcytosis Macrocytosis Sodium Potassium Chloride Carbon Dioxide Anion Gap BUN Creatinine Creat Clearance w eGFR POC Glucometer 159 Random Glucose Calcium Iron 11 L Total Bilirubin AST ALT Alkaline Phosphatase Total Protein Albumin Crossmatch See Detail 08/14/17 08/15/17 08/15/17 22:56 06:00 06:00 WBC 10.6 H Corrected WBC (auto) Security Representative RBC 2.48 L Hgb 6.3 L* Hct 21.0 L MCV 84.8 MCH 25.5 L MCHC 30.0 L RDW 18.3 H Plt Count 294 MPV 8.9 Total Counted 100 Neutrophils % No Result Required. Neutrophils % (Manual) 78.6 Band Neutrophils % 7.1 Lymphocytes % No Result Required. Lymphocytes % (Manual) 9.2 Monocytes % (Manual) 1 L Eosinophils % (Manual) 0.0 Basophils % (Manual) 0.0 Myelocytes % (Man) 3 H Metamyelocytes 1 Hypochromia 2+ Platelet Estimate Normal Polychromasia 1+ Poikilocytosis 0 Anisocytosis 2+ Microcytosis 1+ Macrocytosis 0 Sodium 149 H Potassium 4.1 Chloride 115 H Carbon Dioxide 24 Anion Gap 10 BUN 29 H D Creatinine 0.4 L Creat Clearance w eGFR > 60 POC Glucometer 144 Random Glucose 113 H Calcium 7.9 L Iron Total Bilirubin 0.2 D AST 23 ALT 23 Alkaline Phosphatase 57 Total Protein 5.9 L Albumin 1.5 L Crossmatch 08/15/17 08/15/17 06:40 12:17 WBC Corrected WBC (auto) RBC Hgb Hct MCV MCH MCHC RDW Plt Count MPV Total Counted Neutrophils % Neutrophils % (Manual) Band Neutrophils % Lymphocytes % Lymphocytes % (Manual) Monocytes % (Manual) Eosinophils % (Manual) Basophils % (Manual) Myelocytes % (Man) Metamyelocytes Hypochromia Platelet Estimate Polychromasia Poikilocytosis Anisocytosis Microcytosis Macrocytosis Sodium Potassium Chloride Carbon Dioxide Anion Gap BUN Creatinine Creat Clearance w eGFR POC Glucometer 134 142 Random Glucose Calcium Iron Total Bilirubin AST ALT Alkaline Phosphatase Total Protein Albumin Crossmatch Problem List - Problems (1) Acute respiratory failure with hypoxia Code(s): J96.01 - ACUTE RESPIRATORY FAILURE WITH HYPOXIA (2) Pneumonia Code(s): J18.9 - PNEUMONIA, UNSPECIFIED ORGANISM (3) Severe sepsis Code(s): A41.9 - SEPSIS, UNSPECIFIED ORGANISM; R65.20 - SEVERE SEPSIS WITHOUT SEPTIC SHOCK (4) Lactic acidosis Code(s): E87.2 - ACIDOSIS (5) Hypernatremia Code(s): E87.0 - HYPEROSMOLALITY AND HYPERNATREMIA (6) CAD (coronary artery disease) Code(s): I25.10 - ATHSCL HEART DISEASE OF [place] CORONARY ARTERY W/O ANG PCTRS (7) Atrial fibrillation Code(s): I48.91 - UNSPECIFIED ATRIAL FIBRILLATION (8) Bipolar disorder Code(s): F31.9 - BIPOLAR DISORDER, UNSPECIFIED Assessment/Plan Acute Hypoxic Respiratory Failure Pneumonia Severe Sepsis Lactic Acidosis Anemia Atrial Fibrillation with RVR Bipolar Disorder HTN DM Seizure Disorder - ABX per ID - inhaled bronchodilators - O2 to keep SpO2 >90% - aspiration precautions - monitor H/H - rate control once hemodynamics stable - Wean steroids - DNR/DNI Dr Bolden
[2017-08-15] MEDS ORDERED: PT OWN MED DRAWER 7, Y5N ONE (16:42)
--- NOTE | 2017-08-15 17:33 | PN ---
Progress Note (short form) - Note Progress Note: PAtient seen and examined comfortable , resting Last Vital Signs Temp Pulse Resp BP Pulse Ox 97.8 F 104 H 18 121/65 98 08/15/17 14:14 08/15/17 14:14 08/15/17 14:14 08/15/17 14:14 08/15/17 08:40 Cor: RSR, No murmurs, No gallops Lungs: Clear to P&A Abd: Soft, Normal bowel sounds, No organomegaly Ext:No significant edema Abnormal Lab Results 08/12/17 08/13/17 08/15/17 06:08 05:35 06:00 WBC RBC Hgb Hct MCH MCHC RDW Monocytes % (Manual) Myelocytes % (Man) Sodium 149 H Chloride 115 H BUN 29 H D Creatinine 0.4 L Random Glucose 113 H Calcium 7.9 L Iron 11 L Total Protein 5.9 L Albumin 1.5 L Crossmatch See Detail 08/15/17 06:00 WBC 10.6 H RBC 2.48 L Hgb 6.3 L* Hct 21.0 L MCH 25.5 L MCHC 30.0 L RDW 18.3 H Monocytes % (Manual) 1 L Myelocytes % (Man) 3 H Sodium Chloride BUN Creatinine Random Glucose Calcium Iron Total Protein Albumin Crossmatch Home Medication List Medication Instructions Recorded Confirmed Type Acetaminophen [Tylenol] 650 mg GT ONCE 08/12/17 08/12/17 History Albuterol 0.083% Nebulizer Bela 1 amp NEB TID PRN 08/12/17 08/12/17 History [Ventolin 0.083% Nebulizer Soln -] Aspirin 81 mg GT DAILY 08/12/17 08/12/17 History Carvedilol 6.25 mg GT BID 08/12/17 08/12/17 History Doxazosin Mesylate [Cardura] 1 mg GT DAILY 08/12/17 08/12/17 History Fosinopril Sodium 10 mg GT DAILY 08/12/17 08/12/17 History Ipratropium [place] 0.2 mg IH QID 08/12/17 08/12/17 History L. Acidophilus/Pectin, [place] 1 each GT DAILY 08/12/17 08/12/17 History [Acidophilus Capsule] Magnesium Hydroxide [Milk of 30 ml GT PRN 08/12/17 08/12/17 History Magnesia] Metformin HCl 500 mg GT DAILY 08/12/17 08/12/17 History Rivaroxaban [Xarelto -] 15 mg GT DAILY 08/12/17 08/12/17 History Sennosides [Senna] 2 tab GT HS 08/12/17 08/12/17 History Valproate Sodium Liquid [Depakene] 250 mg GT BID 08/12/17 08/12/17 History Active Medications Generic Name Dose Route Start Last Admin Trade Name Freq PRN Reason Stop Dose Admin Acetaminophen 650 mg 08/12/17 20:11 08/12/17 21:43 Tylenol Oral Solution - GT 650 mg Q6H PRN Administration FEVER Albuterol Sulfate 1 amp 08/12/17 23:43 Ventolin 0.083% Nebulizer Soln - NEB Q4H PRN SHORT OF BREATH/WHEEZING Albuterol/Ipratropium 1 amp 08/13/17 08:00 08/15/17 16:00 Duoneb - NEB 1 amp RQID [facility] Administration Amino Acids 30 ml 08/14/17 17:30 08/15/17 17:08 Prosource No Carb Liquid Pkt PO 30 ml BID@0800,1730 [facility] Administration Ascorbic Acid 250 mg 08/14/17 10:00 08/15/17 10:25 Vitamin C - PO 250 mg DAILY [facility] Administration Collagenase 1 applic 08/13/17 10:00 08/15/17 10:25 Santyl - TP 1 applic BID [facility] Administration Cyanocobalamin 1,000 mcg 08/15/17 10:00 08/15/17 10:23 Vitamin B12 Injection - IM 08/20/17 09:59 1,000 mcg DAILY [facility] Administration Epoetin Luis A 20,000 unit 08/14/17 20:00 08/15/17 10:24 Procrit - SQ 08/18/17 10:01 20,000 unit DAILY [facility] Administration Folic Acid 1 mg 08/15/17 10:00 08/15/17 10:23 Folic Acid - PO 1 mg DAILY [facility] Administration Piperacillin Sod/Tazobactam 100 mls @ 200 mls/hr 08/12/17 13:15 08/15/17 17: 09 Sod 4.5 gm/ Dextrose IVPB 200 mls/hr Q8H-IV [facility] Administration Potassium Chloride 20 meq/ 1,010 mls @ 65 mls/hr 08/14/17 14:30 08/15/17 05: 52 Dextrose IVPB Not Given Q15H [facility] Insulin Aspart 1 vial 08/13/17 00:00 08/15/17 17:08 Novolog Vial Sliding Scale - SQ Not Given Q6HPO [facility] Protocol Lactobacillus Acidophilus 1 tab 08/13/17 10:00 08/15/17 10:24 Bacid - GT 1 tab DAILY [facility] Administration Methylprednisolone Sodium Succinate 40 mg 08/15/17 14:15 08/15/17 15:03 Solu-Medrol - IVPUSH 40 mg Q12H [facility] Administration Multivitamins/Minerals/Vitamin C 1 tab 08/14/17 10:00 08/15/17 10:24 Tab-A-Vit - PO 1 tab DAILY [facility] Administration Pantoprazole Sodium 40 mg 08/13/17 14:00 08/15/17 10:23 Protonix Iv IVPUSH 40 mg DAILY [facility] Administration Valproate Sodium 250 mg 08/13/17 10:00 08/15/17 10:24 Depakene - GT 250 mg BID [facility] Administration A/P 77 y/o patient Jehovahs witness, severe anemia, pneumonia,sacral decubitus on medrol/zosyn anemia stated iv iron, folic acid, vit. B12, procrit Hgb 6.3 toayla discussed with daughter yesterday
--- NOTE | 2017-08-15 21:44 | PN ---
Progress Note (short form) - Note Progress Note: severe anemia pneumonia jehovah witness Current Medications Acetaminophen (Tylenol Oral Solution -) 650 mg GT Q6H PRN PRN Reason: FEVER Last Admin: 08/12/17 21:43 Dose: 650 mg Albuterol Sulfate (Ventolin 0.083% Nebulizer Soln -) 1 amp NEB Q4H PRN PRN Reason: SHORT OF BREATH/WHEEZING Albuterol/Ipratropium (Duoneb -) 1 amp NEB RQID [facility] Last Admin: 08/15/17 16:00 Dose: 1 amp Amino Acids (Prosource No Carb Liquid Pkt) 30 ml PO BID@0800,1730 [facility] Last Admin: 08/15/17 17:08 Dose: 30 ml Ascorbic Acid (Vitamin C -) 250 mg PO DAILY [facility] Last Admin: 08/15/17 10:25 Dose: 250 mg Collagenase (Santyl -) 1 applic TP BID [facility] Last Admin: 08/15/17 10:25 Dose: 1 applic Cyanocobalamin (Vitamin B12 Injection -) 1,000 mcg IM DAILY [facility] Stop: 08/20/17 09:59 Last Admin: 08/15/17 10:23 Dose: 1,000 mcg Epoetin Luis A (Procrit -) 20,000 unit SQ DAILY [facility] Stop: 08/18/17 10:01 Last Admin: 08/15/17 10:24 Dose: 20,000 unit Folic Acid (Folic Acid -) 1 mg PO DAILY [facility] Last Admin: 08/15/17 10:23 Dose: 1 mg Piperacillin Sod/Tazobactam (Sod 4.5 gm/ Dextrose) 100 mls @ 200 mls/hr IVPB Q8H-IV [facility] Last Admin: 08/15/17 17:09 Dose: 200 mls/hr Potassium Chloride 20 meq/ (Dextrose) 1,010 mls @ 65 mls/hr IVPB Q15H [facility] Last Admin: 08/15/17 05:52 Dose: Not Given Insulin Aspart (Novolog Vial Sliding Scale -) 1 vial SQ Q6HPO [facility] PRN Reason: Protocol Last Admin: 08/15/17 17:08 Dose: Not Given Lactobacillus Acidophilus (Bacid -) 1 tab GT DAILY [facility] Last Admin: 08/15/17 10:24 Dose: 1 tab Methylprednisolone Sodium Succinate (Solu-Medrol -) 40 mg IVPUSH Q12H [facility] Last Admin: 08/15/17 15:03 Dose: 40 mg Multivitamins/Minerals/Vitamin C (Tab-A-Vit -) 1 tab PO DAILY [facility] Last Admin: 08/15/17 10:24 Dose: 1 tab Pantoprazole Sodium (Protonix Iv) 40 mg IVPUSH DAILY [facility] Last Admin: 08/15/17 10:23 Dose: 40 mg Valproate Sodium (Depakene -) 250 mg GT BID [facility] Last Admin: 08/15/17 10:24 Dose: 250 mg Last Vital Signs Temp Pulse Resp BP Pulse Ox 97.8 F 90 20 137/80 98 08/15/17 17:57 08/15/17 17:57 08/15/17 17:57 08/15/17 17:57 08/15/17 08:40 Lungs rhonchi Heart reg s1s2 Abd soft Ext no edema CBC, BMP 08/15/17 06:00 08/15/17 06:00 IMP- hypernatremia improving Na 149 down from 151 yesterday Plan- continue free water replacement
--- NOTE | 2017-08-15 22:06 | PN ---
Progress Note, Physician Chief Complaint: Anemia, pneumonia,sacral decubitus, Sepsis History of Present Illness: NAD awake seen by Pulmonary seen by Hematology for severe anemia, pt Jehovas witness - Current Medication List Current Medications: Active Medications Acetaminophen (Tylenol Oral Solution -) 650 mg GT Q6H PRN PRN Reason: FEVER Last Admin: 08/12/17 21:43 Dose: 650 mg Albuterol Sulfate (Ventolin 0.083% Nebulizer Soln -) 1 amp NEB Q4H PRN PRN Reason: SHORT OF BREATH/WHEEZING Albuterol/Ipratropium (Duoneb -) 1 amp NEB RQID [facility] Last Admin: 08/15/17 16:00 Dose: 1 amp Amino Acids (Prosource No Carb Liquid Pkt) 30 ml PO BID@0800,1730 [facility] Last Admin: 08/15/17 17:08 Dose: 30 ml Ascorbic Acid (Vitamin C -) 250 mg PO DAILY [facility] Last Admin: 08/15/17 10:25 Dose: 250 mg Collagenase (Santyl -) 1 applic TP BID [facility] Last Admin: 08/15/17 10:25 Dose: 1 applic Cyanocobalamin (Vitamin B12 Injection -) 1,000 mcg IM DAILY [facility] Stop: 08/20/17 09:59 Last Admin: 08/15/17 10:23 Dose: 1,000 mcg Epoetin Luis A (Procrit -) 20,000 unit SQ DAILY [facility] Stop: 08/18/17 10:01 Last Admin: 08/15/17 10:24 Dose: 20,000 unit Folic Acid (Folic Acid -) 1 mg PO DAILY [facility] Last Admin: 08/15/17 10:23 Dose: 1 mg Piperacillin Sod/Tazobactam (Sod 4.5 gm/ Dextrose) 100 mls @ 200 mls/hr IVPB Q8H-IV [facility] Last Admin: 08/15/17 17:09 Dose: 200 mls/hr Potassium Chloride 20 meq/ (Dextrose) 1,010 mls @ 65 mls/hr IVPB Q15H [facility] Last Admin: 08/15/17 05:52 Dose: Not Given Insulin Aspart (Novolog Vial Sliding Scale -) 1 vial SQ Q6HPO [facility] PRN Reason: Protocol Last Admin: 08/15/17 17:08 Dose: Not Given Lactobacillus Acidophilus (Bacid -) 1 tab GT DAILY [facility] Last Admin: 08/15/17 10:24 Dose: 1 tab Methylprednisolone Sodium Succinate (Solu-Medrol -) 40 mg IVPUSH Q12H [facility] Last Admin: 08/15/17 15:03 Dose: 40 mg Multivitamins/Minerals/Vitamin C (Tab-A-Vit -) 1 tab PO DAILY [facility] Last Admin: 08/15/17 10:24 Dose: 1 tab Pantoprazole Sodium (Protonix Iv) 40 mg IVPUSH DAILY [facility] Last Admin: 08/15/17 10:23 Dose: 40 mg Valproate Sodium (Depakene -) 250 mg GT BID [facility] Last Admin: 08/15/17 10:24 Dose: 250 mg - Objective Vital Signs: Vital Signs Temperature 97.8 F 08/15/17 17:57 Pulse Rate 90 08/15/17 17:57 Respiratory Rate 20 08/15/17 17:57 Blood Pressure 137/80 08/15/17 17:57 O2 Sat by Pulse Oximetry (%) 98 08/15/17 08:40 Constitutional: Yes: Well Nourished, No Distress, Calm Cardiovascular: Yes: Pulse Irregular Respiratory: Yes: Regular Gastrointestinal: Yes: Normal Bowel Sounds, Soft Musculoskeletal: Yes: WNL Extremities: Yes: WNL Neurological: Yes: Alert Psychiatric: Yes: Alert Labs: CBC, BMP 08/15/17 06:00 08/15/17 06:00 INR, PTT INR 1.89 (0.82-1.09) H 08/12/17 03:43 Problem List - Problems (1) Sepsis Assessment/Plan: -seen by Pulmonary and ID -IV abx -Tylenol for fever >100.0 F -IVF Code(s): A41.9 - SEPSIS, UNSPECIFIED ORGANISM (2) COPD (chronic obstructive pulmonary disease) Assessment/Plan: -seen by Pulmonary -nasal o2 -bronchodilators -IV steroids -IV abx Code(s): J44.9 - CHRONIC OBSTRUCTIVE PULMONARY DISEASE, UNSPECIFIED (3) Pneumonia Assessment/Plan: -seen by Pulmonary -nasal o2 -bronchodilators -IV steroids -IV abx Code(s): J18.9 - PNEUMONIA, UNSPECIFIED ORGANISM (4) Anemia Assessment/Plan: -seen by hematology -receiving Iron IV -Jehovas witness -repeat labs in AM Code(s): D64.9 - ANEMIA, UNSPECIFIED (5) Atrial fibrillation Assessment/Plan: -Chronic -Xarelto d/c due to severe anemia Code(s): I48.91 - UNSPECIFIED ATRIAL FIBRILLATION Assessment/Plan see problem list pt non-verbal, on PEG feedings DNR/DNI
[2017-08-16] MEDS ORDERED: PT OWN MED DRAWER 7, Y5N ONE ×4 (00:23→16:40)
[2017-08-16] MEDS: POTASSIUM CHLORIDE 20 MEQ in DEXTROSE 5%-WATER - 1,000 ML IVPB SCH ×3 (00:25→11:21)
[2017-08-16] MEDS: VALPROATE SODIUM 250 MG/5 ML UNIT DOSE CUP GT SCH ×2 (00:26→09:20)
[2017-08-16] MEDS: INSULIN SLIDING SCALE (NOVOLOG) 1 VIAL SQ SCH ×5 (00:28→17:06)
[2017-08-16] MEDS: COLLAGENASE CLOSTRIDIUM HIST. 30 GRAMS TUBE TP SCH ×2 (02:50→09:19)
[2017-08-16] MEDS: PIPERACILLIN/TAZOB 4.5 GM 4.5 GM in DEXTROSE 5%-WATER - 100 ML IVPB SCH ×3 (02:50→17:06)
[2017-08-16] MEDS: methylPREDNISolone NA SUCC 40 MG/1 ML VIAL IVPUSH SCH ×2 (06:00→13:43)
[2017-08-16] MEDS: ALBUTEROL SO4 2.5/IPRATROPIUM 0.5 INH SOL 3 ML VIAL.NEB. NEB SCH ×4 (08:50→20:54)
[2017-08-16] MEDS: AMINO ACIDS/PROTEIN HYDROLYS 30 ML LIQUID.PKT PO SCH ×2 (09:18→16:48)
[2017-08-16] MEDS: CYANOCOBALAMIN (VITAMIN B-12) 1000 MCG/1 ML VIAL IM SCH (09:18)
[2017-08-16] MEDS: EPOETIN ALFA 20,000 UNIT/1 ML VIAL SQ SCH (09:19)
[2017-08-16] MEDS: ASCORBIC ACID 250 MG TABLET (FP) PO SCH (09:19)
[2017-08-16] MEDS: MULTIVITAMINS (DAILY MVI) TABLET (FP) PO SCH (09:19)
[2017-08-16] MEDS: PANTOPRAZOLE SODIUM 40 MG VIAL IVPUSH SCH (09:19)
[2017-08-16] MEDS: FOLIC ACID 1 MG TABLET (FP) PO SCH (09:19)
[2017-08-16] MEDS: LACTOBACILLUS ACIDOPHILUS 1 EACH TAB (FP) GT SCH (09:19)
--- NOTE | 2017-08-16 13:24 | PN ---
Progress Note (short form) - Note Progress Note: Patient seen and examined on Telemetry. Remains awake and mildly tachypneic but in NAD on 3 L NC O2 today. No acute events overnight. Intake & Output 08/13/17 08/14/17 08/15/17 08/16/17 23:59 23:59 23:59 23:59 Intake Total 1250 2200 1406 Output Total 1300 2400 1950 500 Balance -50 -2400 250 906 Last Vital Signs Temp Pulse Resp BP Pulse Ox 97.8 F 97 H 20 150/95 93 L 08/16/17 10:00 08/16/17 10:00 08/16/17 10:00 08/16/17 10:00 08/16/17 09:00 Active Medications Acetaminophen (Tylenol Oral Solution -) 650 mg GT Q6H PRN PRN Reason: FEVER Last Admin: 08/12/17 21:43 Dose: 650 mg Albuterol Sulfate (Ventolin 0.083% Nebulizer Soln -) 1 amp NEB Q4H PRN PRN Reason: SHORT OF BREATH/WHEEZING Albuterol/Ipratropium (Duoneb -) 1 amp NEB RQID [facility] Last Admin: 08/16/17 12:24 Dose: 1 amp Amino Acids (Prosource No Carb Liquid Pkt) 30 ml PO BID@0800,1730 [facility] Last Admin: 08/16/17 09:18 Dose: 30 ml Ascorbic Acid (Vitamin C -) 250 mg PO DAILY [facility] Last Admin: 08/16/17 09:19 Dose: 250 mg Collagenase (Santyl -) 1 applic TP BID [facility] Last Admin: 08/16/17 09:19 Dose: 1 applic Cyanocobalamin (Vitamin B12 Injection -) 1,000 mcg IM DAILY [facility] Stop: 08/20/17 09:59 Last Admin: 08/16/17 09:18 Dose: 1,000 mcg Epoetin Luis A (Procrit -) 20,000 unit SQ DAILY [facility] Stop: 08/18/17 10:01 Last Admin: 08/16/17 09:19 Dose: 20,000 unit Folic Acid (Folic Acid -) 1 mg PO DAILY [facility] Last Admin: 08/16/17 09:19 Dose: 1 mg Piperacillin Sod/Tazobactam (Sod 4.5 gm/ Dextrose) 100 mls @ 200 mls/hr IVPB Q8H-IV [facility] Last Admin: 08/16/17 09:19 Dose: 200 mls/hr Potassium Chloride 20 meq/ (Dextrose) 1,010 mls @ 65 mls/hr IVPB Q15H [facility] Last Admin: 08/16/17 11:21 Dose: Not Given Insulin Aspart (Novolog Vial Sliding Scale -) 1 vial SQ Q6HPO [facility] PRN Reason: Protocol Last Admin: 08/16/17 11:17 Dose: Not Given Lactobacillus Acidophilus (Bacid -) 1 tab GT DAILY [facility] Last Admin: 08/16/17 09:19 Dose: 1 tab Methylprednisolone Sodium Succinate (Solu-Medrol -) 40 mg IVPUSH Q12H [facility] Last Admin: 08/16/17 06:00 Dose: 40 mg Multivitamins/Minerals/Vitamin C (Tab-A-Vit -) 1 tab PO DAILY [facility] Last Admin: 08/16/17 09:19 Dose: 1 tab Pantoprazole Sodium (Protonix Iv) 40 mg IVPUSH DAILY [facility] Last Admin: 08/16/17 09:19 Dose: 40 mg Valproate Sodium (Depakene -) 250 mg GT BID [facility] Last Admin: 08/16/17 09:20 Dose: 250 mg Constitutional: Yes: NAD, Confusion Eyes: Yes: Conjunctiva Clear, EOM Intact HENT: Yes: Atraumatic, Normocephalic Neck: Yes: Supple, Trachea Midline Cardiovascular: Yes: Tachycardia Respiratory: Yes: Bilateral Rales, Rhonchi ...Clubbing: No Gastrointestinal: Yes: Normal Bowel Sounds, Soft. No: Tenderness Edema: No Neurological: Yes: Lethargy Labs: Laboratory Results - last 24 hr 08/15/17 08/15/17 08/16/17 17:06 22:26 05:50 POC Glucometer 107 116 104 08/16/17 11:14 POC Glucometer 128 Problem List - Problems (1) Acute respiratory failure with hypoxia Code(s): J96.01 - ACUTE RESPIRATORY FAILURE WITH HYPOXIA (2) Pneumonia Code(s): J18.9 - PNEUMONIA, UNSPECIFIED ORGANISM (3) Severe sepsis Code(s): A41.9 - SEPSIS, UNSPECIFIED ORGANISM; R65.20 - SEVERE SEPSIS WITHOUT SEPTIC SHOCK (4) Lactic acidosis Code(s): E87.2 - ACIDOSIS (5) Hypernatremia Code(s): E87.0 - HYPEROSMOLALITY AND HYPERNATREMIA (6) CAD (coronary artery disease) Code(s): I25.10 - ATHSCL HEART DISEASE OF [place] CORONARY ARTERY W/O ANG PCTRS (7) Atrial fibrillation Code(s): I48.91 - UNSPECIFIED ATRIAL FIBRILLATION (8) Bipolar disorder Code(s): F31.9 - BIPOLAR DISORDER, UNSPECIFIED Assessment/Plan Acute Hypoxic Respiratory Failure Pneumonia Severe Sepsis Lactic Acidosis Anemia Atrial Fibrillation with RVR Bipolar Disorder HTN DM Seizure Disorder - ABX per ID - inhaled bronchodilators - O2 to keep SpO2 >90% - aspiration precautions - monitor H/H - Wean steroids in AM if remains stable - DNR/DNI Dr Bolden
--- NOTE | 2017-08-16 14:01 | PN ---
Progress Note (short form) - Note Progress Note: NAD No diarrhea congested cough Vital Signs Period Temp Pulse Resp BP Sys/Jules Pulse Ox Last 24 Hr 97.8 F-97.9 F 84-104 18-20 113-150/65-95 93-98 cor-rrr lungs bilateral rhonchi abd soft,nt +GT ext contracted CBC, BMP 08/15/17 06:00 08/15/17 06:00 Microbiology 08/12/17 04:45 Blood - Peripheral Venous Blood Culture - Preliminary NO GROWTH OBTAINED AFTER 96 HOURS, INCUBATION TO CONTINUE FOR 1 DAYS. 08/12/17 03:43 Blood - Peripheral Venous Blood Culture - Preliminary NO GROWTH OBTAINED AFTER 96 HOURS, INCUBATION TO CONTINUE FOR 1 DAYS. 08/12/17 20:20 Urine For Antigen Detection Legionella Antigen - Final 08/12/17 20:20 Urine For Antigen Detection Streptococcus pneumoniae Antigen (M - Final 08/12/17 03:46 Urine - Urine - Catheterized Urine Culture - Final 08/12/17 06:00 Stool Clostridium difficile Antigen (MIGUEL) - Final 08/12/17 06:00 Stool Clostridium difficile Toxin Assay - Final 08/12/17 03:57 Nasopharyngeal Swab Influenza Types A,B Antigen (MIGUEL) - Final 08/12/17 03:57 Nasopharyngeal Swab - Final a/p pneumonia-improved antibiotic day #5/7 zosyn hypotension resolved anemia- refuses transfusion sacral decub- management per wound care
--- NOTE | 2017-08-16 18:00 | PN ---
Progress Note (short form) - Note Progress Note: severe anemia pneumonia jehovah witness Current Medications Acetaminophen (Tylenol Oral Solution -) 650 mg GT Q6H PRN PRN Reason: FEVER Last Admin: 08/12/17 21:43 Dose: 650 mg Albuterol Sulfate (Ventolin 0.083% Nebulizer Soln -) 1 amp NEB Q4H PRN PRN Reason: SHORT OF BREATH/WHEEZING Albuterol/Ipratropium (Duoneb -) 1 amp NEB RQID [facility] Last Admin: 08/16/17 16:00 Dose: 1 amp Amino Acids (Prosource No Carb Liquid Pkt) 30 ml PO BID@0800,1730 [facility] Last Admin: 08/16/17 16:48 Dose: 30 ml Ascorbic Acid (Vitamin C -) 250 mg PO DAILY [facility] Last Admin: 08/16/17 09:19 Dose: 250 mg Collagenase (Santyl -) 1 applic TP BID [facility] Last Admin: 08/16/17 09:19 Dose: 1 applic Cyanocobalamin (Vitamin B12 Injection -) 1,000 mcg IM DAILY [facility] Stop: 08/20/17 09:59 Last Admin: 08/16/17 09:18 Dose: 1,000 mcg Epoetin Luis A (Procrit -) 20,000 unit SQ DAILY [facility] Stop: 08/18/17 10:01 Last Admin: 08/16/17 09:19 Dose: 20,000 unit Folic Acid (Folic Acid -) 1 mg PO DAILY [facility] Last Admin: 08/16/17 09:19 Dose: 1 mg Piperacillin Sod/Tazobactam (Sod 4.5 gm/ Dextrose) 100 mls @ 200 mls/hr IVPB Q8H-IV [facility] Last Admin: 08/16/17 17:06 Dose: 200 mls/hr Potassium Chloride 20 meq/ (Dextrose) 1,010 mls @ 65 mls/hr IVPB Q15H [facility] Last Admin: 08/16/17 11:21 Dose: Not Given Insulin Aspart (Novolog Vial Sliding Scale -) 1 vial SQ Q6HPO [facility] PRN Reason: Protocol Last Admin: 08/16/17 17:06 Dose: Not Given Lactobacillus Acidophilus (Bacid -) 1 tab GT DAILY [facility] Last Admin: 08/16/17 09:19 Dose: 1 tab Methylprednisolone Sodium Succinate (Solu-Medrol -) 40 mg IVPUSH Q12H [facility] Last Admin: 08/16/17 13:43 Dose: 40 mg Multivitamins/Minerals/Vitamin C (Tab-A-Vit -) 1 tab PO DAILY [facility] Last Admin: 08/16/17 09:19 Dose: 1 tab Pantoprazole Sodium (Protonix Iv) 40 mg IVPUSH DAILY [facility] Last Admin: 08/16/17 09:19 Dose: 40 mg Valproate Sodium (Depakene -) 250 mg GT BID [facility] Last Admin: 08/16/17 09:20 Dose: 250 mg Last Vital Signs Temp Pulse Resp BP Pulse Ox 97.8 F 97 H 20 150/95 93 L 08/16/17 10:00 08/16/17 10:00 08/16/17 10:00 08/16/17 10:00 08/16/17 09:00 Lungs rhonchi Heart reg s1s2 Abd soft Ext no edema CBC, BMP 08/15/17 06:00 08/15/17 06:00 IMP- hypernatremia improving no new labs today- minimizing blood draws? Na 149 yesterday down from 151 Severe Anemia - refused blood transfusion Plan- continue free water replacement
--- NOTE | 2017-08-16 18:22 | PN ---
Progress Note, Physician Chief Complaint: Anemia, pneumonia,sacral decubitus, Sepsis History of Present Illness: NAD awake seen by Pulmonary seen by Hematology for severe anemia, pt Jehovas witness - Current Medication List Current Medications: Active Medications Acetaminophen (Tylenol Oral Solution -) 650 mg GT Q6H PRN PRN Reason: FEVER Last Admin: 08/12/17 21:43 Dose: 650 mg Albuterol Sulfate (Ventolin 0.083% Nebulizer Soln -) 1 amp NEB Q4H PRN PRN Reason: SHORT OF BREATH/WHEEZING Albuterol/Ipratropium (Duoneb -) [address] [facility] Last Admin: 08/16/17 16:00 Dose: 1 amp Amino Acids (Prosource No Carb Liquid Pkt) 30 ml PO BID@0800,1730 [facility] Last Admin: 08/16/17 16:48 Dose: 30 ml Ascorbic Acid (Vitamin C -) [address] [facility] Last Admin: 08/16/17 09:19 Dose: 250 mg Collagenase (Santyl -) [address] [facility] Last Admin: 08/16/17 09:19 Dose: 1 applic Cyanocobalamin (Vitamin B12 Injection -) 1,[address] [facility] Stop: 08/20/17 09:59 Last Admin: 08/16/17 09:18 Dose: 1,000 mcg Epoetin Luis A (Procrit -) 20,[address] [facility] Stop: 08/18/17 10:01 Last Admin: 08/16/17 09:19 Dose: 20,000 unit Folic Acid (Folic Acid -) [address] [facility] Last Admin: 08/16/17 09:19 Dose: 1 mg Piperacillin Sod/Tazobactam (Sod 4.5 gm/ Dextrose) 100 mls @ 200 mls/hr IVPB Q8H-IV [facility] Last Admin: 08/16/17 17:06 Dose: 200 mls/hr Potassium Chloride 20 meq/ (Dextrose) 1,010 mls @ 65 mls/hr IVPB Q15H [facility] Last Admin: 08/16/17 11:21 Dose: Not Given Insulin Aspart (Novolog Vial Sliding Scale -) 1 vial SQ Q6HPO [facility] PRN Reason: Protocol Last Admin: 08/16/17 17:06 Dose: Not Given Lactobacillus Acidophilus (Bacid -) [address] [facility] Last Admin: 08/16/17 09:19 Dose: 1 tab Methylprednisolone Sodium Succinate (Solu-Medrol -) [address] [facility] Last Admin: 08/16/17 13:43 Dose: 40 mg Multivitamins/Minerals/Vitamin C (Tab-A-Vit -) [address] [facility] Last Admin: 08/16/17 09:19 Dose: 1 tab Pantoprazole Sodium (Protonix Iv) [address] [facility] Last Admin: 08/16/17 09:19 Dose: 40 mg Valproate Sodium (Depakene -) [address] [facility] Last Admin: 08/16/17 09:20 Dose: 250 mg - Objective Vital Signs: Vital Signs Temperature 97.8 F 08/16/17 10:00 Pulse Rate 97 H 08/16/17 10:00 Respiratory Rate 20 08/16/17 10:00 Blood Pressure 150/95 08/16/17 10:00 O2 Sat by Pulse Oximetry (%) 93 L 08/16/17 09:00 Constitutional: Yes: Well Nourished, No Distress, Calm Cardiovascular: Yes: Regular Rate and Rhythm Respiratory: Yes: Regular, Rhonchi (diffuse) Gastrointestinal: Yes: Normal Bowel Sounds, Soft Musculoskeletal: Yes: WNL Extremities: Yes: WNL Edema: No Peripheral Pulses WNL: Yes Neurological: Yes: Alert, Pre-Existing Deficit Labs: CBC, BMP 08/15/17 06:00 08/15/17 06:00 INR, PTT INR 1.89 (0.82-1.09) H 08/12/17 03:43 Problem List - Problems (1) Sepsis Assessment/Plan: -seen by Pulmonary and ID -IV abx -Tylenol for fever >100.0 F -IVF Code(s): A41.9 - SEPSIS, UNSPECIFIED ORGANISM (2) COPD (chronic obstructive pulmonary disease) Assessment/Plan: -seen by Pulmonary -nasal o2 -bronchodilators -IV steroids tapering -IV abx -lungs more congested today -repeat CXR -guafenisin Code(s): J44.9 - CHRONIC OBSTRUCTIVE PULMONARY DISEASE, UNSPECIFIED (3) Pneumonia Assessment/Plan: -seen by Pulmonary -nasal o2 -bronchodilators -IV steroids -IV abx -lungs more congested today -repeat CXR -guafenisin Code(s): J18.9 - PNEUMONIA, UNSPECIFIED ORGANISM (4) Anemia Assessment/Plan: -seen by hematology -receiving Iron IV -Jehovas witness -repeat labs in AM Code(s): D64.9 - ANEMIA, UNSPECIFIED (5) Atrial fibrillation Assessment/Plan: -Chronic -Xarelto d/c due to severe anemia Code(s): I48.91 - UNSPECIFIED ATRIAL FIBRILLATION Assessment/Plan see problem list pt minimally verbal, on PEG feedings DNR/DNI
[2017-08-16] MEDS: guaiFENesin/D-METHORPHAN HB 10 ML UNIT-DOSE CUPS PO SCH (18:38)
[2017-08-16] MEDS ORDERED: DEXTROSE 50%-WATER 25 GM/50 ML DISP.SYRIN ONE (18:39)
[2017-08-16] MEDS ORDERED: DEXTROSE 50%-WATER - 25 GM/50 ML VIAL IVPUSH ONE (19:15)
[2017-08-17] MEDS ORDERED: PT OWN MED DRAWER 7, Y5N ONE ×4 (00:07→21:14)
[2017-08-17] MEDS: guaiFENesin/D-METHORPHAN HB 10 ML UNIT-DOSE CUPS PO SCH ×4 (00:16→17:06)
[2017-08-17] MEDS: INSULIN SLIDING SCALE (NOVOLOG) 1 VIAL SQ SCH ×4 (00:16→17:06)
[2017-08-17] MEDS: VALPROATE SODIUM 250 MG/5 ML UNIT DOSE CUP GT SCH ×3 (00:16→21:54)
[2017-08-17] MEDS: COLLAGENASE CLOSTRIDIUM HIST. 30 GRAMS TUBE TP SCH ×3 (00:16→21:54)
[2017-08-17] MEDS: PIPERACILLIN/TAZOB 4.5 GM 4.5 GM in DEXTROSE 5%-WATER - 100 ML IVPB SCH ×3 (02:30→17:06)
[2017-08-17] MEDS: POTASSIUM CHLORIDE 20 MEQ in DEXTROSE 5%-WATER - 1,000 ML IVPB SCH (02:30)
[2017-08-17] MEDS: methylPREDNISolone NA SUCC 40 MG/1 ML VIAL IVPUSH SCH (02:30)
[2017-08-17] MEDS: ALBUTEROL SO4 2.5/IPRATROPIUM 0.5 INH SOL 3 ML VIAL.NEB. NEB SCH ×4 (07:44→20:41)
[2017-08-17 08:32] LABS: HEMATOCRIT 22.6 % (35.4-49); MCH 25.8 pg (25.7-33.7); MCHC 30.2 g/dl (32.0-35.9); MEAN CELL VOLUME 85.3 fl (80-96); MEAN PLT VOLUME 8.9 fl (7.5-11.1); PLATELET COUNT 414 K/MM3 (134-434); RBC 2.65 M/mm3 (4.00-5.60); RDW 18.8 % (11.9-15.9); WHITE BLOOD COUNT 14.4 K/mm3 (4.0-10.0)
[2017-08-17 08:45] LABS: ALBUMIN 1.7 g/dl (3.4-5.0); ANION GAP 8 (8-16); BLOOD UREA NITROGEN 12 mg/dL (7-18); CALCIUM 7.5 mg/dL (8.5-10.1); CHLORIDE 104 mmol/L (98-107); CO2 27 mmol/L (21-32); GLUCOSE,RANDOM 72 mg/dL (74-106); HEMOGLOBIN 6.8 GM/dL (11.7-16.9); POTASSIUM 4.5 mmol/L (3.5-5.1); SODIUM 139 mmol/L (136-145)
[2017-08-17 08:48] LABS: ALK PHOS 70 U/L (45-117); BILIRUBIN,TOTAL 0.4 mg/dL (0.2-1.0); CREATININE 0.3 mg/dL (0.7-1.3); SGOT/AST 15 U/L (15-37); SGPT/ALT 20 U/L (12-78); TOT PROT 5.9 g/dl (6.4-8.2)
--- NOTE | 2017-08-17 09:01 | PN ---
Progress Note, Physician - Current Medication List Current Medications: Active Medications Acetaminophen (Tylenol Oral Solution -) 650 mg GT Q6H PRN PRN Reason: FEVER Last Admin: 08/12/17 21:43 Dose: 650 mg Albuterol Sulfate (Ventolin 0.083% Nebulizer Soln -) 1 amp NEB Q4H PRN PRN Reason: SHORT OF BREATH/WHEEZING Albuterol/Ipratropium (Duoneb -) 1 amp NEB RQID [facility] Last Admin: 08/16/17 20:54 Dose: 1 amp Amino Acids (Prosource No Carb Liquid Pkt) 30 ml PO BID@0800,1730 [facility] Last Admin: 08/16/17 16:48 Dose: 30 ml Ascorbic Acid (Vitamin C -) 250 mg PO DAILY [facility] Last Admin: 08/16/17 09:19 Dose: 250 mg Collagenase (Santyl -) 1 applic TP BID [facility] Last Admin: 08/17/17 00:16 Dose: 1 applic Cyanocobalamin (Vitamin B12 Injection -) 1,000 mcg IM DAILY [facility] Stop: 08/20/17 09:59 Last Admin: 08/16/17 09:18 Dose: 1,000 mcg Epoetin Luis A (Procrit -) 20,000 unit SQ DAILY [facility] Stop: 08/18/17 10:01 Last Admin: 08/16/17 09:19 Dose: 20,000 unit Folic Acid (Folic Acid -) 1 mg PO DAILY [facility] Last Admin: 08/16/17 09:19 Dose: 1 mg Guaifenesin (Robitussin Dm -) 10 ml PO Q6HPO [facility] Last Admin: 08/17/17 06:52 Dose: 10 ml Piperacillin Sod/Tazobactam (Sod 4.5 gm/ Dextrose) 100 mls @ 200 mls/hr IVPB Q8H-IV [facility] Last Admin: 08/17/17 02:30 Dose: 200 mls/hr Potassium Chloride 20 meq/ (Dextrose) 1,010 mls @ 65 mls/hr IVPB Q15H [facility] Last Admin: 08/17/17 02:30 Dose: 65 mls/hr Insulin Aspart (Novolog Vial Sliding Scale -) 1 vial SQ Q6HPO [facility] PRN Reason: Protocol Last Admin: 08/17/17 06:25 Dose: Not Given Lactobacillus Acidophilus (Bacid -) 1 tab GT DAILY [facility] Last Admin: 08/16/17 09:19 Dose: 1 tab Methylprednisolone Sodium Succinate (Solu-Medrol -) 40 mg IVPUSH Q12H [facility] Last Admin: 08/17/17 02:30 Dose: 40 mg Multivitamins/Minerals/Vitamin C (Tab-A-Vit -) 1 tab PO DAILY [facility] Last Admin: 08/16/17 09:19 Dose: 1 tab Pantoprazole Sodium (Protonix Iv) 40 mg IVPUSH DAILY [facility] Last Admin: 08/16/17 09:19 Dose: 40 mg Valproate Sodium (Depakene -) 250 mg GT BID [facility] Last Admin: 08/17/17 00:16 Dose: 250 mg - Objective Vital Signs: Vital Signs Temperature 96.9 F L 08/17/17 06:00 Pulse Rate 95 H 08/17/17 06:00 Respiratory Rate 20 08/17/17 06:00 Blood Pressure 137/91 08/17/17 06:00 O2 Sat by Pulse Oximetry (%) 96 08/16/17 21:00 Labs: CBC, BMP 08/17/17 07:13 08/17/17 07:13 INR, PTT INR 1.89 (0.82-1.09) H 08/12/17 03:43 Problem List - Problems (1) Severe sepsis Code(s): A41.9 - SEPSIS, UNSPECIFIED ORGANISM; R65.20 - SEVERE SEPSIS WITHOUT SEPTIC SHOCK (2) COPD (chronic obstructive pulmonary disease) Code(s): J44.9 - CHRONIC OBSTRUCTIVE PULMONARY DISEASE, UNSPECIFIED (3) Pneumonia Code(s): J18.9 - PNEUMONIA, UNSPECIFIED ORGANISM (4) Anemia Code(s): D64.9 - ANEMIA, UNSPECIFIED (5) Hypernatremia Code(s): E87.0 - HYPEROSMOLALITY AND HYPERNATREMIA Assessment/Plan Problems (1) Sepsis Assessment/Plan: -seen by Pulmonary and ID -IV abx day 6/7 -Tylenol for fever >100.0 F Code(s): A41.9 - SEPSIS, UNSPECIFIED ORGANISM (2) COPD (chronic obstructive pulmonary disease) Assessment/Plan: -seen by Pulmonary -nasal o2 -bronchodilators -IV steroids tapering--to po prednisone -IV abx -repeat CXR -guafenisin Code(s): J44.9 - CHRONIC OBSTRUCTIVE PULMONARY DISEASE, UNSPECIFIED (3) Pneumonia Assessment/Plan: -seen by Pulmonary -nasal o2 -bronchodilators -IV steroids--to po -IV abx day 6/7 -lungs more congested today -repeat CXR -guafenisin Code(s): J18.9 - PNEUMONIA, UNSPECIFIED ORGANISM (4) Anemia Assessment/Plan: -seen by hematology -receiving Iron IV -Jehovas witness -repeat labs in AM Code(s): D64.9 - ANEMIA, UNSPECIFIED (5) Atrial fibrillation Assessment/Plan: -Chronic -Xarelto d/c due to severe anemia Code(s): I48.91 - UNSPECIFIED ATRIAL FIBRILLATION Assessment/Plan see problem list pt minimally verbal, on PEG feedings DNR/DNI
[2017-08-17] MEDS: MULTIVITAMINS (DAILY MVI) TABLET (FP) PO SCH (10:26)
[2017-08-17] MEDS: FOLIC ACID 1 MG TABLET (FP) PO SCH (10:26)
[2017-08-17] MEDS: LACTOBACILLUS ACIDOPHILUS 1 EACH TAB (FP) GT SCH (10:26)
[2017-08-17] MEDS: EPOETIN ALFA 20,000 UNIT/1 ML VIAL SQ SCH (10:27)
[2017-08-17] MEDS: AMINO ACIDS/PROTEIN HYDROLYS 30 ML LIQUID.PKT PO SCH ×2 (10:27→16:56)
[2017-08-17] MEDS: CYANOCOBALAMIN (VITAMIN B-12) 1000 MCG/1 ML VIAL IM SCH (10:27)
[2017-08-17] MEDS: PANTOPRAZOLE SODIUM 40 MG VIAL IVPUSH SCH (10:27)
[2017-08-17] MEDS: predniSONE 20 MG TABLET (UD) PO SCH ×2 (10:28→21:54)
[2017-08-17] MEDS: ASCORBIC ACID 250 MG TABLET (FP) PO SCH (10:28)
[2017-08-17 11:55] LABS: ANISOCYTOSIS 2+; MACROCYTOSIS 1+; OVALOCYTE 1+; PLATELET ESTIMATE NORMAL; TEAR DROP CELLS 1+
--- NOTE | 2017-08-17 14:19 | PN ---
Progress Note, Physician History of Present Illness: PULMONARY ALERT,NO DISTRESS - Current Medication List Current Medications: Active Medications Acetaminophen (Tylenol Oral Solution -) 650 mg GT Q6H PRN PRN Reason: FEVER Last Admin: 08/12/17 21:43 Dose: 650 mg Albuterol Sulfate (Ventolin 0.083% Nebulizer Soln -) 1 amp NEB Q4H PRN PRN Reason: SHORT OF BREATH/WHEEZING Albuterol/Ipratropium (Duoneb -) 1 amp NEB RQID [facility] Last Admin: 08/17/17 12:22 Dose: 1 amp Amino Acids (Prosource No Carb Liquid Pkt) 30 ml PO BID@0800,1730 [facility] Last Admin: 08/17/17 10:27 Dose: 30 ml Ascorbic Acid (Vitamin C -) 250 mg PO DAILY [facility] Last Admin: 08/17/17 10:28 Dose: Not Given Collagenase (Santyl -) 1 applic TP BID [facility] Last Admin: 08/17/17 10:27 Dose: 1 applic Cyanocobalamin (Vitamin B12 Injection -) 1,000 mcg IM DAILY [facility] Stop: 08/20/17 09:59 Last Admin: 08/17/17 10:27 Dose: 1,000 mcg Epoetin Luis A (Procrit -) 20,000 unit SQ DAILY [facility] Stop: 08/18/17 10:01 Last Admin: 08/17/17 10:27 Dose: 20,000 unit Folic Acid (Folic Acid -) 1 mg PO DAILY [facility] Last Admin: 08/17/17 10:26 Dose: 1 mg Guaifenesin (Robitussin Dm -) 10 ml PO Q6HPO [facility] Last Admin: 08/17/17 11:25 Dose: 10 ml Piperacillin Sod/Tazobactam (Sod 4.5 gm/ Dextrose) 100 mls @ 200 mls/hr IVPB Q8H-IV [facility] Last Admin: 08/17/17 10:26 Dose: 200 mls/hr Potassium Chloride 20 meq/ (Dextrose) 1,010 mls @ 65 mls/hr IVPB Q15H [facility] Last Admin: 08/17/17 02:30 Dose: 65 mls/hr Insulin Aspart (Novolog Vial Sliding Scale -) 1 vial SQ Q6HPO [facility] PRN Reason: Protocol Last Admin: 08/17/17 11:26 Dose: Not Given Lactobacillus Acidophilus (Bacid -) 1 tab GT DAILY [facility] Last Admin: 08/17/17 10:26 Dose: 1 tab Multivitamins/Minerals/Vitamin C (Tab-A-Vit -) 1 tab PO DAILY [facility] Last Admin: 08/17/17 10:26 Dose: 1 tab Pantoprazole Sodium (Protonix Iv) 40 mg IVPUSH DAILY [facility] Last Admin: 08/17/17 10:27 Dose: 40 mg Prednisone (Deltasone -) 20 mg PO BID [facility] Last Admin: 08/17/17 10:28 Dose: 20 mg Valproate Sodium (Depakene -) 250 mg GT BID [facility] Last Admin: 08/17/17 10:26 Dose: 250 mg - Objective Vital Signs: Vital Signs Temperature 97.8 F 08/17/17 10:00 Pulse Rate 88 08/17/17 10:00 Respiratory Rate 20 08/17/17 10:00 Blood Pressure 150/96 08/17/17 10:00 O2 Sat by Pulse Oximetry (%) 97 08/17/17 09:00 Constitutional: Yes: Calm, Thin Eyes: Yes: WNL HENT: Yes: WNL Neck: Yes: WNL Cardiovascular: Yes: Regular Rate and Rhythm, S1, S2 Respiratory: Yes: Rhonchi (SCATTERED RHONCHI) Gastrointestinal: Yes: Normal Bowel Sounds, Soft Edema: No Labs: CBC, BMP 08/17/17 07:13 08/17/17 07:13 INR, PTT INR 1.89 (0.82-1.09) H 08/12/17 03:43 Assessment/Plan Problem List - Problems (1) Acute respiratory failure with hypoxia Code(s): J96.01 - ACUTE RESPIRATORY FAILURE WITH HYPOXIA (2) Pneumonia Code(s): J18.9 - PNEUMONIA, UNSPECIFIED ORGANISM (3) Severe sepsis Code(s): A41.9 - SEPSIS, UNSPECIFIED ORGANISM; R65.20 - SEVERE SEPSIS WITHOUT SEPTIC SHOCK (4) Lactic acidosis Code(s): E87.2 - ACIDOSIS (5) Hypernatremia Code(s): E87.0 - HYPEROSMOLALITY AND HYPERNATREMIA (6) CAD (coronary artery disease) Code(s): I25.10 - ATHSCL HEART DISEASE OF [place] CORONARY ARTERY W/O ANG PCTRS (7) Atrial fibrillation Code(s): I48.91 - UNSPECIFIED ATRIAL FIBRILLATION (8) Bipolar disorder Code(s): F31.9 - BIPOLAR DISORDER, UNSPECIFIED Assessment/Plan Acute Hypoxic Respiratory Failure Pneumonia Severe Sepsis Lactic Acidosis Anemia Atrial Fibrillation with RVR Bipolar Disorder HTN DM Seizure Disorder - ABX coverage as per ID - inhaled bronchodilators - O2 to keep SpO2 >90% - aspiration precautions - monitor H/H - rate control - hold anticoagulation - DNR/DNI Dr Quigley
--- NOTE | 2017-08-17 14:29 | PN ---
Progress Note, Physician History of Present Illness: Pt seen and examined at bedside. He is more awake and interactive. He denies shortness of breath. - Current Medication List Current Medications: Active Medications Acetaminophen (Tylenol Oral Solution -) 650 mg GT Q6H PRN PRN Reason: FEVER Last Admin: 08/12/17 21:43 Dose: 650 mg Albuterol Sulfate (Ventolin 0.083% Nebulizer Soln -) 1 amp NEB Q4H PRN PRN Reason: SHORT OF BREATH/WHEEZING Albuterol/Ipratropium (Duoneb -) 1 amp NEB RQID [facility] Last Admin: 08/17/17 12:22 Dose: 1 amp Amino Acids (Prosource No Carb Liquid Pkt) 30 ml PO BID@0800,1730 [facility] Last Admin: 08/17/17 10:27 Dose: 30 ml Ascorbic Acid (Vitamin C -) 250 mg PO DAILY [facility] Last Admin: 08/17/17 10:28 Dose: Not Given Collagenase (Santyl -) 1 applic TP BID [facility] Last Admin: 08/17/17 10:27 Dose: 1 applic Cyanocobalamin (Vitamin B12 Injection -) 1,000 mcg IM DAILY [facility] Stop: 08/20/17 09:59 Last Admin: 08/17/17 10:27 Dose: 1,000 mcg Epoetin Luis A (Procrit -) 20,000 unit SQ DAILY [facility] Stop: 08/18/17 10:01 Last Admin: 08/17/17 10:27 Dose: 20,000 unit Folic Acid (Folic Acid -) 1 mg PO DAILY [facility] Last Admin: 08/17/17 10:26 Dose: 1 mg Guaifenesin (Robitussin Dm -) 10 ml PO Q6HPO [facility] Last Admin: 08/17/17 11:25 Dose: 10 ml Piperacillin Sod/Tazobactam (Sod 4.5 gm/ Dextrose) 100 mls @ 200 mls/hr IVPB Q8H-IV [facility] Last Admin: 08/17/17 10:26 Dose: 200 mls/hr Potassium Chloride 20 meq/ (Dextrose) 1,010 mls @ 65 mls/hr IVPB Q15H [facility] Last Admin: 08/17/17 02:30 Dose: 65 mls/hr Insulin Aspart (Novolog Vial Sliding Scale -) 1 vial SQ Q6HPO [facility] PRN Reason: Protocol Last Admin: 08/17/17 11:26 Dose: Not Given Lactobacillus Acidophilus (Bacid -) 1 tab GT DAILY [facility] Last Admin: 08/17/17 10:26 Dose: 1 tab Multivitamins/Minerals/Vitamin C (Tab-A-Vit -) 1 tab PO DAILY [facility] Last Admin: 08/17/17 10:26 Dose: 1 tab Pantoprazole Sodium (Protonix Iv) 40 mg IVPUSH DAILY [facility] Last Admin: 08/17/17 10:27 Dose: 40 mg Prednisone (Deltasone -) 20 mg PO BID [facility] Last Admin: 08/17/17 10:28 Dose: 20 mg Valproate Sodium (Depakene -) 250 mg GT BID [facility] Last Admin: 08/17/17 10:26 Dose: 250 mg - Objective Vital Signs: Vital Signs Temperature 97.8 F 08/17/17 10:00 Pulse Rate 88 08/17/17 10:00 Respiratory Rate 20 08/17/17 10:00 Blood Pressure 150/96 08/17/17 10:00 O2 Sat by Pulse Oximetry (%) 97 08/17/17 09:00 Constitutional: Yes: Calm Eyes: Yes: Conjunctiva Clear HENT: Yes: Atraumatic Cardiovascular: Yes: S1, S2 Respiratory: Yes: On Nasal O2, Rhonchi Gastrointestinal: Yes: Soft Genitourinary: Yes: [place] Present Musculoskeletal: Yes: Muscle Weakness Edema: No Neurological: Yes: Pre-Existing Deficit Labs: CBC, BMP 08/17/17 07:13 08/17/17 07:13 INR, PTT INR 1.89 (0.82-1.09) H 08/12/17 03:43 Problem List - Problems (1) Anemia Code(s): D64.9 - ANEMIA, UNSPECIFIED (2) COPD (chronic obstructive pulmonary disease) Code(s): J44.9 - CHRONIC OBSTRUCTIVE PULMONARY DISEASE, UNSPECIFIED (3) Fever Code(s): R50.9 - FEVER, UNSPECIFIED (4) Hypernatremia Code(s): E87.0 - HYPEROSMOLALITY AND HYPERNATREMIA (5) Pneumonia Code(s): J18.9 - PNEUMONIA, UNSPECIFIED ORGANISM (6) Sepsis Code(s): A41.9 - SEPSIS, UNSPECIFIED ORGANISM Assessment/Plan Current Medications Generic Name Dose Route Start Last Admin Trade Name Freq PRN Reason Stop Dose Admin Acetaminophen 650 mg 08/12/17 20:11 08/12/17 21:43 Tylenol Oral Solution - GT 650 mg Q6H PRN Administration FEVER Albuterol Sulfate 1 amp 08/12/17 23:43 Ventolin 0.083% Nebulizer Soln - NEB Q4H PRN SHORT OF BREATH/WHEEZING Albuterol/Ipratropium 1 amp 08/13/17 08:00 08/17/17 12:22 Duoneb - NEB 1 amp RQID [facility] Administration Amino Acids 30 ml 08/14/17 17:30 08/17/17 10:27 Prosource No Carb Liquid Pkt PO 30 ml BID@0800,1730 [facility] Administration Ascorbic Acid 250 mg 08/14/17 10:00 08/17/17 10:28 Vitamin C - PO Not Given DAILY [facility] Collagenase 1 applic 08/13/17 10:00 08/17/17 10:27 Santyl - TP 1 applic BID [facility] Administration Cyanocobalamin 1,000 mcg 08/15/17 10:00 08/17/17 10:27 Vitamin B12 Injection - IM 08/20/17 09:59 1,000 mcg DAILY [facility] Administration Epoetin Luis A 20,000 unit 08/14/17 20:00 08/17/17 10:27 Procrit - SQ 08/18/17 10:01 20,000 unit DAILY [facility] Administration Folic Acid 1 mg 08/15/17 10:00 08/17/17 10:26 Folic Acid - PO 1 mg DAILY [facility] Administration Guaifenesin 10 ml 08/16/17 18:30 08/17/17 11:25 Robitussin Dm - PO 10 ml Q6HPO [facility] Administration Piperacillin Sod/Tazobactam 100 mls @ 200 mls/hr 08/12/17 13:15 08/17/17 10: 26 Sod 4.5 gm/ Dextrose IVPB 200 mls/hr Q8H-IV [facility] Administration Potassium Chloride 20 meq/ 1,010 mls @ 65 mls/hr 08/14/17 14:30 08/17/17 02: 30 Dextrose IVPB 65 mls/hr Q15H [facility] Administration Insulin Aspart 1 vial 08/13/17 00:00 08/17/17 11:26 Novolog Vial Sliding Scale - SQ Not Given Q6HPO [facility] Protocol Lactobacillus Acidophilus 1 tab 08/13/17 10:00 08/17/17 10:26 Bacid - GT 1 tab DAILY [facility] Administration Multivitamins/Minerals/Vitamin C 1 tab 08/14/17 10:00 08/17/17 10:26 Tab-A-Vit - PO 1 tab DAILY [facility] Administration Pantoprazole Sodium 40 mg 08/13/17 14:00 08/17/17 10:27 Protonix Iv IVPUSH 40 mg DAILY [facility] Administration Prednisone 20 mg 08/17/17 10:00 08/17/17 10:28 Deltasone - PO 20 mg BID [facility] Administration Valproate Sodium 250 mg 08/13/17 10:00 08/17/17 10:26 Depakene - GT 250 mg BID [facility] Administration Impression 1. NEAL 2. hypernatremia 3. PNA 4. dysphagia 5. DM 6. HTN 7. hypoxia 8. mild right hydro Plan - can stop fluids - sodium is improved - cont tube feeds with free water - repeat labs in am - monitor hg - renal function is stabilizing - cont abx - will follow Dr Dorsey
[2017-08-18] MEDS: guaiFENesin/D-METHORPHAN HB 10 ML UNIT-DOSE CUPS PO SCH ×3 (00:47→13:10)
[2017-08-18] MEDS: INSULIN SLIDING SCALE (NOVOLOG) 1 VIAL SQ SCH ×3 (00:47→13:10)
[2017-08-18] MEDS: PIPERACILLIN/TAZOB 4.5 GM 4.5 GM in DEXTROSE 5%-WATER - 100 ML IVPB SCH ×2 (02:52→10:29)
[2017-08-18 06:50] VITALS: BP 146/93; PULSE 93; TEMP 97.9
[2017-08-18 07:34] LABS: ANION GAP 9 (8-16); BLOOD UREA NITROGEN 12 mg/dL (7-18); CALCIUM 7.9 mg/dL (8.5-10.1); CHLORIDE 101 mmol/L (98-107); CO2 27 mmol/L (21-32); CREATININE 0.3 mg/dL (0.7-1.3); GLUCOSE,RANDOM 81 mg/dL (74-106); POTASSIUM 4.6 mmol/L (3.5-5.1); SODIUM 137 mmol/L (136-145)
[2017-08-18 08:40] LABS: HEMOGLOBIN 7.8 GM/dL (11.7-16.9); MCHC 29.9 g/dl (32.0-35.9); MEAN CELL VOLUME 87.2 fl (80-96); MEAN PLT VOLUME 8.6 fl (7.5-11.1); PLATELET COUNT 476 K/MM3 (134-434); RBC 2.98 M/mm3 (4.00-5.60); RDW 18.7 % (11.9-15.9); WHITE BLOOD COUNT 14.6 K/mm3 (4.0-10.0)
--- NOTE | 2017-08-18 08:57 | DS ---
Physical Examination Vital Signs: Vital Signs Temperature 97.9 F 08/18/17 06:00 Pulse Rate 93 H 08/18/17 06:00 Respiratory Rate 20 08/18/17 06:00 Blood Pressure 146/93 08/18/17 06:00 O2 Sat by Pulse Oximetry (%) 97 08/17/17 21:00 Cardiovascular: Yes: Regular Rate and Rhythm Respiratory: Yes: Regular, CTA Bilaterally Gastrointestinal: Yes: Normal Bowel Sounds, Soft Labs: CBC, BMP 08/18/17 05:35 Discharge Summary Reason For Visit: SEVERE SEPSIS FEVER Current Active Problems Acute respiratory failure with hypoxia (Acute) Anemia (Acute) Atrial fibrillation (Acute) Back wound (Acute) Bipolar disorder (Acute) CAD (coronary artery disease) (Acute) COPD (chronic obstructive pulmonary disease) (Acute) Fever (Acute) Hydronephrosis (Acute) Hypernatremia (Acute) Lactic acidosis (Acute) Microcytic anemia (Acute) Pneumonia (Acute) Sepsis (Acute) Severe sepsis (Acute) Hospital Course: his is a 77 year old male with PMH as below who presented from [facility] for fever and hypoxia. Pt is nonverbal and history is obtained from [place] records. ER course was notable for: (1) WBC 12.4, Lactic acid 5.0 (2) given ceftriaxone and azithromycin Recent Travel: none PAST MEDICAL HISTORY: DVT, HTN, CAD, DM2, BPH, UTI, Schizophrenia, bioplar disorder, conversion disorder with seizures, Influenza PAST SURGICAL HISTORY: unkown Problems (1) Sepsis Assessment/Plan: -seen by Pulmonary and ID -IV abx day completed--po augmentin x 3 days -Tylenol for fever >100.0 F Code(s): A41.9 - SEPSIS, UNSPECIFIED ORGANISM (2) COPD (chronic obstructive pulmonary disease) Assessment/Plan: -seen by Pulmonary -nasal o2 -bronchodilators -IV steroids tapering--to po prednisone -IV abx--to po -repeat CXR -guafenisin Code(s): J44.9 - CHRONIC OBSTRUCTIVE PULMONARY DISEASE, UNSPECIFIED (3) Pneumonia Assessment/Plan: -seen by Pulmonary -nasal o2 -bronchodilators -IV steroids--to po -IV abx day 6/7 -lungs more congested today -repeat CXR -guafenisin Code(s): J18.9 - PNEUMONIA, UNSPECIFIED ORGANISM (4) Anemia Assessment/Plan: -seen by hematology -receiving Iron IV -Jehovas witness -repeat labs in AM -B12 Code(s): D64.9 - ANEMIA, UNSPECIFIED (5) Atrial fibrillation Assessment/Plan: -Chronic -Xarelto d/c due to severe anemia Code(s): I48.91 - UNSPECIFIED ATRIAL FIBRILLATION Assessment/Plan see problem list pt minimally verbal, on PEG feedings DNR/DNI Condition: Stable - Instructions Diet, Activity, Other Instructions: Monitor hgb-if stable and no further drop asses need to resume anticoagulation and asa cbcd and bmp q week Referrals: Bill Goldstein [Primary Care Provider] - Disposition: [facility] F[facility] - Home Medications Comprehensive Discharge Medication List: Ambulatory Orders Acetaminophen [Tylenol] 650 mg GT ONCE 08/12/17 Albuterol 0.083% Nebulizer Bela [Ventolin 0.083% Nebulizer Soln -] 1 amp NEB TID PRN 08/12/17 Aspirin 81 mg GT DAILY 08/12/17 Carvedilol 6.25 mg GT BID 08/12/17 L. Acidophilus/Pectin, [place] [Acidophilus Capsule] 1 each GT DAILY 08/12/17 Magnesium Hydroxide [Milk of Magnesia] 30 ml GT PRN 08/12/17 Sennosides [Senna] 2 tab GT HS 08/12/17 Valproate Sodium Liquid [Depakene Oral Solution -] 250 mg GT BID 08/12/17 Albuterol 2.5/Ipratropium 0.5 [Duoneb -] 1 amp NEB RQID amp 08/18/17 Amino Acids/Protein Hydrolys [Prosource No Carb Liquid Pkt] 30 ml PO BID@0800, 1730 packet 08/18/17 Ascorbic Acid [Vitamin C -] 250 mg PO DAILY tablet 08/18/17 Collagenase Clostridium Hist. [Santyl -] 1 applic TP BID tube 08/18/17 Cyanocobalamin Vit B-12 Inj. [Vitamin B12 Injection -] 1,000 mcg IM DAILY vial 08/18/17 Epoetin Luis A [Procrit -] 20,000 unit SQ DAILY ml 08/18/17 Folic Acid - 1 mg PO DAILY tablet 08/18/17 Insulin Sliding Scale [Novolog Vial Sliding Scale -] 1 vial SQ Q6HPO units Multivitamins [Multivit ([facility] Formul[facility])] 1 tab PO DAILY tab 08/18/17 Prednisone [Deltasone -] 20 mg PO BID tablet 08/18/17
[2017-08-18] MEDS ORDERED: CARVEDILOL 6.25 MG TABLET (FP) PO SCH (10:00)
[2017-08-18] MEDS ORDERED: PT OWN MED DRAWER 7, Y5N ONE (10:21)
[2017-08-18] MEDS: MULTIVITAMINS (DAILY MVI) TABLET (FP) PO SCH (10:28)
[2017-08-18] MEDS: FOLIC ACID 1 MG TABLET (FP) PO SCH (10:28)
[2017-08-18] MEDS: predniSONE 20 MG TABLET (UD) PO SCH (10:28)
[2017-08-18] MEDS: ASCORBIC ACID 250 MG TABLET (FP) PO SCH (10:28)
[2017-08-18] MEDS: LACTOBACILLUS ACIDOPHILUS 1 EACH TAB (FP) GT SCH (10:28)
[2017-08-18] MEDS: CYANOCOBALAMIN (VITAMIN B-12) 1000 MCG/1 ML VIAL IM SCH (10:28)
[2017-08-18] MEDS: VALPROATE SODIUM 250 MG/5 ML UNIT DOSE CUP GT SCH (10:29)
[2017-08-18] MEDS: AMINO ACIDS/PROTEIN HYDROLYS 30 ML LIQUID.PKT PO SCH (10:29)
[2017-08-18] MEDS: COLLAGENASE CLOSTRIDIUM HIST. 30 GRAMS TUBE TP SCH (10:29)
[2017-08-18] MEDS: PANTOPRAZOLE SODIUM 40 MG VIAL IVPUSH SCH (10:29)
--- NOTE | 2017-08-18 11:17 | PN ---
Progress Note (short form) - Note Progress Note: much more alert day #7 zosyn Vital Signs Period Temp Pulse Resp BP Sys/Jules Pulse Ox Last 24 Hr 97.9 F-98.7 F 74-99 20-20 131-146/78-94 97 cor-rrr lungs scattered rhonchi abd soft,nt +GT ext contracted CBC, BMP 08/18/17 08:37 08/18/17 05:35 cxray improved Microbiology 08/12/17 04:45 Blood - Peripheral Venous Blood Culture - Final NO GROWTH AFTER 5 DAYS INCUBATION 08/12/17 03:43 Blood - Peripheral Venous Blood Culture - Final NO GROWTH AFTER 5 DAYS INCUBATION 08/12/17 20:20 Urine For Antigen Detection Legionella Antigen - Final 08/12/17 20:20 Urine For Antigen Detection Streptococcus pneumoniae Antigen (M - Final 08/12/17 03:46 Urine - Urine - Catheterized Urine Culture - Final 08/12/17 06:00 Stool Clostridium difficile Antigen (MIGUEL) - Final 08/12/17 06:00 Stool Clostridium difficile Toxin Assay - Final 08/12/17 03:57 Nasopharyngeal Swab Influenza Types A,B Antigen (MIGUEL) - Final 08/12/17 03:57 Nasopharyngeal Swab - Final a/p pneumonia-improved antibiotic day #7/ zosyn, po augmentin for 3 days anemia- refuses transfusion sacral decub- management per wound care d/w Dr Vigil
[2017-08-18 12:39] LABS: MACROCYTOSIS 1+; OVALOCYTE 1+
[2017-08-18] MEDS: EPOETIN ALFA 20,000 UNIT/1 ML VIAL SQ SCH (13:10)
--- NOTE | 2017-08-18 13:35 | PN ---
Progress Note, Physician History of Present Illness: Pt seen and examined at bedside. He appears comfortable. - Current Medication List Current Medications: Active Medications Acetaminophen (Tylenol Oral Solution -) 650 mg GT Q6H PRN PRN Reason: FEVER Last Admin: 08/12/17 21:43 Dose: 650 mg Amino Acids (Prosource No Carb Liquid Pkt) 30 ml PO BID@0800,1730 [facility] Last Admin: 08/18/17 10:29 Dose: 30 ml Ascorbic Acid (Vitamin C -) 250 mg PO DAILY [facility] Last Admin: 08/18/17 10:28 Dose: 250 mg Carvedilol (Coreg -) 6.25 mg PO BID [facility] Last Admin: 08/18/17 10:28 Dose: 6.25 mg Collagenase (Santyl -) 1 applic TP BID [facility] Last Admin: 08/18/17 10:29 Dose: 1 applic Cyanocobalamin (Vitamin B12 Injection -) 1,000 mcg IM DAILY [facility] Stop: 08/20/17 09:59 Last Admin: 08/18/17 10:28 Dose: 1,000 mcg Folic Acid (Folic Acid -) 1 mg PO DAILY [facility] Last Admin: 08/18/17 10:28 Dose: 1 mg Guaifenesin (Robitussin Dm -) 10 ml PO Q6HPO [facility] Last Admin: 08/18/17 13:10 Dose: 10 ml Piperacillin Sod/Tazobactam (Sod 4.5 gm/ Dextrose) 100 mls @ 200 mls/hr IVPB Q8H-IV [facility] Last Admin: 08/18/17 10:29 Dose: 200 mls/hr Insulin Aspart (Novolog Vial Sliding Scale -) 1 vial SQ Q6HPO S[facility] PRN Reason: Protocol Last Admin: 08/18/17 13:10 Dose: Not Given Lactobacillus Acidophilus (Bacid -) 1 tab GT DAILY [facility] Last Admin: 08/18/17 10:28 Dose: 1 tab Multivitamins/Minerals/Vitamin C (Tab-A-Vit -) 1 tab PO DAILY [facility] Last Admin: 08/18/17 10:28 Dose: 1 tab Pantoprazole Sodium (Protonix Iv) 40 mg IVPUSH DAILY [facility] Last Admin: 08/18/17 10:29 Dose: 40 mg Prednisone (Deltasone -) 20 mg PO BID [facility] Last Admin: 08/18/17 10:28 Dose: 20 mg Valproate Sodium (Depakene -) 250 mg GT BID [facility] Last Admin: 08/18/17 10:29 Dose: 250 mg - Objective Vital Signs: Vital Signs Temperature 97.9 F 08/18/17 06:00 Pulse Rate 93 H 08/18/17 06:00 Respiratory Rate 20 08/18/17 06:00 Blood Pressure 146/93 08/18/17 06:00 O2 Sat by Pulse Oximetry (%) 97 08/17/17 21:00 Constitutional: Yes: Calm Eyes: Yes: Conjunctiva Clear HENT: Yes: Atraumatic Cardiovascular: Yes: S1, S2 Respiratory: Yes: CTA Bilaterally Gastrointestinal: Yes: Soft, Other (peg) Genitourinary: Yes: Incontinence Musculoskeletal: Yes: Muscle Weakness Edema: No Neurological: Yes: Pre-Existing Deficit Labs: CBC, BMP 08/18/17 08:37 08/18/17 05:35 INR, PTT INR 1.89 (0.82-1.09) H 08/12/17 03:43 Problem List - Problems (1) Anemia Code(s): D64.9 - ANEMIA, UNSPECIFIED (2) COPD (chronic obstructive pulmonary disease) Code(s): J44.9 - CHRONIC OBSTRUCTIVE PULMONARY DISEASE, UNSPECIFIED (3) Fever Code(s): R50.9 - FEVER, UNSPECIFIED (4) Hypernatremia Code(s): E87.0 - HYPEROSMOLALITY AND HYPERNATREMIA (5) Pneumonia Code(s): J18.9 - PNEUMONIA, UNSPECIFIED ORGANISM (6) Sepsis Code(s): A41.9 - SEPSIS, UNSPECIFIED ORGANISM Assessment/Plan Current Medications Generic Name Dose Route Start Last Admin Trade Name Freq PRN Reason Stop Dose Admin Acetaminophen 650 mg 08/12/17 20:11 08/12/17 21:43 Tylenol Oral Solution - GT 650 mg Q6H PRN Administration FEVER Amino Acids 30 ml 08/14/17 17:30 08/18/17 10:29 Prosource No Carb Liquid Pkt PO 30 ml BID@0800,1730 [facility] Administration Ascorbic Acid 250 mg 08/14/17 10:00 08/18/17 10:28 Vitamin C - PO 250 mg DAILY [facility] Administration Carvedilol 6.25 mg 08/18/17 10:00 08/18/17 10:28 Coreg - PO 6.25 mg BID [facility] Administration Collagenase 1 applic 08/13/17 10:00 08/18/17 10:29 Santyl - TP 1 applic BID [facility] Administration Cyanocobalamin 1,000 mcg 08/15/17 10:00 08/18/17 10:28 Vitamin B12 Injection - IM 08/20/17 09:59 1,000 mcg DAILY [facility] Administration Folic Acid 1 mg 08/15/17 10:00 08/18/17 10:28 Folic Acid - PO 1 mg DAILY [facility] Administration Guaifenesin 10 ml 08/16/17 18:30 08/18/17 13:10 Robitussin Dm - PO 10 ml Q6HPO [facility] Administration Piperacillin Sod/Tazobactam 100 mls @ 200 mls/hr 08/12/17 13:15 08/18/17 10: 29 Sod 4.5 gm/ Dextrose IVPB 200 mls/hr Q8H-IV [facility] Administration Insulin Aspart 1 vial 08/13/17 00:00 08/18/17 13:10 Novolog Vial Sliding Scale - SQ Not Given Q6HPO [facility] Protocol Lactobacillus Acidophilus 1 tab 08/13/17 10:00 08/18/17 10:28 Bacid - GT 1 tab DAILY [facility] Administration Multivitamins/Minerals/Vitamin C 1 tab 08/14/17 10:00 08/18/17 10:28 Tab-A-Vit - PO 1 tab DAILY [facility] Administration Pantoprazole Sodium 40 mg 08/13/17 14:00 08/18/17 10:29 Protonix Iv IVPUSH 40 mg DAILY [facility] Administration Prednisone 20 mg 08/17/17 10:00 08/18/17 10:28 Deltasone - PO 20 mg BID [facility] Administration Valproate Sodium 250 mg 08/13/17 10:00 08/18/17 10:29 Depakene - GT 250 mg BID [facility] Administration Impression 1. NEAL 2. hypernatremia 3. PNA 4. dysphagia 5. DM 6. HTN 7. hypoxia 8. mild right hydro Plan - sodium is stable off of fluids - cont with feeds - will need to monitor lytes and sodium as outpt - renal function is stable - will follow PRN Dr Dorsey
== END 2017-08-18 13:57 | DRG 871 ==
LOC: JER 03:15 → JERBED 06:21 → J4S 18:15
PROVIDERS: ADMIT Internal Medicine; ATTEND Family Medicine
PROC: 3E0G76Z Introduction of Nutritional Substance into Upper GI, Via Natural or Artificial Opening (ICD-10-PCS; principal; 2017-08-12)
DX: A41.9 Sepsis, unspecified organism (principal); J18.9 Pneumonia, unspecified organism; J96.01 Acute respiratory failure with hypoxia; E87.0 Hyperosmolality and hypernatremia; N17.9 Acute kidney failure, unspecified; E87.2 Acidosis; R64 Cachexia; Z68.1 Body mass index [BMI] 19.9 or less, adult; N13.30 Unspecified hydronephrosis; I25.10 Atherosclerotic heart disease of native coronary artery without angina pectoris; R65.20 Severe sepsis without septic shock; E11.9 Type 2 diabetes mellitus without complications; N40.0 Benign prostatic hyperplasia without lower urinary tract symptoms; F20.9 Schizophrenia, unspecified; F31.9 Bipolar disorder, unspecified; Z86.718 Personal history of other venous thrombosis and embolism; I10 Essential (primary) hypertension; L89.150 Pressure ulcer of sacral region, unstageable; J44.9 Chronic obstructive pulmonary disease, unspecified; G40.909 Epilepsy, unspecified, not intractable, without status epilepticus; I48.91 Unspecified atrial fibrillation; Z79.84 Long term (current) use of oral hypoglycemic drugs; D50.9 Iron deficiency anemia, unspecified; Z87.440 Personal history of urinary (tract) infections; G24.4 Idiopathic orofacial dystonia; Z66 Do not resuscitate; R19.7 Diarrhea, unspecified
CPT/HCPCS: 36415; 71045-TC; 76775-TC; 76856-TC; 80048; 80053; 81003; 81015; 82272; 82436; 82550; 82553; 82570; 82607; 82728; 82747; 82803; 82962; 83540; 83605; 83615; 84133; 84300; 84484; 85014; 85025; 85027; 85044; 85610; 86850; 86900; 86901; 86922; 87040; 87086; 87324; 87449; 87804; 87899; 93005; 93010; 94640; 99285-25; J0885; J1756